=== PATIENT | male | born 1935 | race Caucasian/White ===

== ENCOUNTER 2023-07-20 13:13 | Emergency (ER) | payer MEDICARE, SELFPAY ==
--- NOTE | 2023-07-20 13:26 | ED.ABDPAIN ---
HPI - Abdominal Pain General Chief Complaint: Nausea/Vomiting/Diarrhea Stated Complaint: VOMITING S/P BOWEL BLOCKAGE Source: patient and RN notes reviewed Mode of arrival: ambulatory Limitations: no limitations History of Present Illness HPI narrative: 88 y/o male with hx DM and CAD presented for c/o worsening of chronic nausea and vomiting over the past few weeks. Also reports worsening abdominal pain prior to vomiting. Endorses the abdominal pain last night was 8/10, which improved after vomiting. States he vomits undigested food for many years. 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 reports 3lb weight loss in 10 days. LBM today, normal per pt. Denies hematochezia, melena or hematemesis. Currently without abdominal pain and no emesis today. Reports today's Blood glucose was 115. Pt resides in [place] and spends 6 months in [place]. Pt has a pcp in [place] but no doctors here. Does not have a GI specialist. Abdominal hx includes cholecystectomy. Related Data Home Medications Medication Instructions Recorded Confirmed Novolog PenFill U-100 Insulin 07/20/23 aspirin 81 mg chewable tablet 81 mg PO DAILY 07/20/23 07/20/23 calcium carb-vitamin D3 ER 600 mg 600 tablet PO DAILY 07/20/23 07/20/23 (1,500 mg)-500 unit tablet,ER 24 hr clopidogrel 75 mg tablet 75 mg PO DAILY 07/20/23 07/20/23 empagliflozin 25 mg tablet 12.5 mg PO DAILY 07/20/23 07/20/23 escitalopram oxalate 10 mg tablet 10 mg PO DAILY 07/20/23 07/20/23 insulin glargine 100 unit/mL 50 unit subcut QPM 07/20/23 07/20/23 subcutaneous cartridge melatonin 10 mg tablet 10 mg PO HS PRN Sleep 07/20/23 07/20/23 metoprolol tartrate 50 mg tablet 50 mg PO BID 07/20/23 07/20/23 multivitamin with minerals-folic 1 tablet PO DAILY 07/20/23 07/20/23 acid 80 mcg chewable tablet (Centrum Adult 50 Plus) pantoprazole 40 mg tablet,delayed 40 mg PO QAM 07/20/23 07/20/23 release simvastatin 5 mg tablet 5 mg PO DAILY 07/20/23 07/20/23 tamsulosin 0.4 mg capsule 0.4 mg PO DAILY 07/20/23 07/20/23 Allergies Allergy/AdvReac Type Severity Reaction Status Date / Time No Known Allergies Allergy Verified 07/20/23 13:34 Review of Systems Review of Systems: CONSTITUTIONAL: Denies body aches, fever, chills CARDIOVASCULAR: Denies chest pain, palpitations, or edema. RESPIRATORY: Denies cough or dyspnea. GASTROINTESTINAL: Endorses intermittent abdominal pain, nausea, vomiting, Denies diarrhea, hematochezia, melena, hematemesis GENITOURINARY: Denies dysuria, hematuria, or CVA tenderness. SKIN: Denies rash, itching, or wounds. MUSCULOSKELETAL: Denies back pain, joint pain, or myalgia. NEUROLOGIC: Denies headache, numbness, tingling, or weakness. All systems reviewed & are unremarkable except as noted in HPI and below PMFSH Past Medical History Medical History (Updated 07/20/23 @ 14:00 by Bety Smith APRN) CAD (coronary artery disease) Diabetes HTN (hypertension) Surgical History Surgical History (Updated 07/20/23 @ 13:55 by Bety Smith APRN) History of cholecystectomy Comments At time of signature, I have reviewed and agree with nursing past medical, surgical, social and family history unless otherwise noted. Please see nursing chart for further information. There is no relevant family history pertinent to the presenting complaint Exam Narrative: GENERAL: Well-appearing, and in no acute distress. ENT: Mucous membranes pink and moist. CHEST: No respiratory distress. Clear to auscultation. HEART: Regular rate and rhythm. No murmur appreciated. Normal peripheral pulses. ABDOMEN: Currently denies nausea or abdominal pain; abd soft, nondistended, normal active bowel sounds. Nontender abdomen; No guarding, rebound tenderness, asymmetry EXTREMITIES: Normal range of motion. No edema. SKIN: Warm, dry, no rash. Capillary refill normal. Normal skin turgor. ELMA
[2023-07-20 13:29] VITALS: BP 119/92; PULSE 61; RESP 16; TEMP 36.8; O2SAT 97
== END 2023-07-20 14:22 | disposition short-term general hospital (02) ==
PROVIDERS: Emergency Provider Nurse Practitioner Family
DX: R11.10 Vomiting, unspecified (principal); I25.10 Atherosclerotic heart disease of native coronary artery without angina pectoris; Z79.4 Long term (current) use of insulin; E11.9 Type 2 diabetes mellitus without complications; I10 Essential (primary) hypertension; Z79.82 Long term (current) use of aspirin
CPT/HCPCS: 99212; G0463

== ENCOUNTER 2023-07-20 14:21 | Inpatient (IN) | payer MEDICARE, SELFPAY ==
[2023-07-20] VITALS (7 sets, daily range): BP systolic 104–136; BP diastolic 52–68; PULSE 59–63; RESP 16–18; TEMP 36.3–36.4; O2SAT 97–99; BMI 24.7
--- NOTE | ~2023-07-20 | CT_ITS ---
EXAMINATION: CT abdomen pelvis w con DATE: 07/20/2023 17:07 INDICATION: Vomiting. History of small bowel obstruction. TECHNIQUE: Computed tomography (CT) of the abdomen and pelvis was performed with 100 cc Omnipaque 350 intravenous contrast. The dose-length product was 784.46 mGy-cm. Automated exposure control and iter ative reconstruction technique were employed. COMPARISON: None. FINDINGS: There is small bowel obstruction with transition in the right mid abdomen, axial image 102- 109. Status post cholecystectomy. Dependent atelectasis. There is calcified granuloma in the right lo wer lobe. No pneumothorax. Heart size normal. Status post cholecystectomy. The liver, spleen, pancrea s, adrenal glands and kidneys are unremarkable. No free air or free fluid. No abnormal pelvic masses or fluid collections. There is fluid throughout the nondilated small bowel. There are mildly prominen t mesenteric lymph nodes, likely reactive. Severe lumbar spondylosis with scoliosis. IMPRESSION: 1. Small bowel obstruction with transition right mid abdomen, most likely due to adhesions. Reviewed, dictated and finalized at location A. IMPRESSION: 1. Small bowel obstruction with transition right mid abdomen, most likely due t o adhesions.
[2023-07-20 15:02] LABS: Basophils Percent Auto 0.4 % (0.2-1.2); Eosinophils Percent Auto 0.5 % (0-4.4); Hemoglobin 14.3 g/dL (14.0-18.0); Immature Granulocyte Absolute 0.01 K/mm3 (0.00-0.031); Immature Granulocyte Percent A 0.1 % (0-0.5); Lymphocytes Absolute Auto 1.86 K/mm3 (0.9-3.2); Lymphocytes Percent Auto 22.5 % (18.3-44.2); Mean Corpuscular HGB Conc 31.8 g/dl (32-36); Mean Corpuscular Hemoglobin 27.9 pg (26-34); Mean Corpuscular Volume 87.9 fl (80-100); Mean Platelet Volume 9.9 fl (7.4-10.4); Monocytes Absolute Auto 0.6 K/mm3 (0.1-0.6); Monocytes Percent Auto 7.5 % (2.6-8.5); Neutrophils Absolute Auto 5.7 K/mm3 (1.3-6.7); Platelet Count Result 220 k/mm3 (150-375); Red Blood Count 5.12 M/mm3 (4.6-6.20); Red Cell Distribution Width 14.2 % (11.5-14.5); White Blood Count 8.3 K/mm3 (4.5-10.0)
[2023-07-20 15:13] LABS: Alanine Aminotransferase 20 U/L (6-50); Albumin Level 4.3 g/dL (3.5-5.1); Alkaline Phosphatase 104 U/L (38-126); Anion Gap 11 mmol/L (4-12); Aspartate Amino Transferase 22 U/L (17-59); Bilirubin,Total 0.4 mg/dL (0.2-1.3); Blood Urea Nitrogen 16 mg/dL (9-20); Calcium 8.6 mg/dL (8.4-10.2); Carbon Dioxide 21 mmol/L (22-30); Chloride 105 mmol/L (98-107); Estimated CRCL calculation 52 ml/min; Estimated Glomerular Filt Rate > 60; Glucose 144 mg/dL (65-110); Lipase 53 U/L (23-300); Potassium 4.2 mmol/L (3.4-5.0); Sodium 137 mmol/L (137-145)
[2023-07-20 16:43] LABS: Appearance Urine Clear (Clear); Bilirubin Urine Negative (Negative); Blood Urine Negative (Negative); Color Urine Yellow (Yellow); Glucose Urine UA 3+ mg/dL (Negative); Ketones Urine Trace mg/dL (Negative); Leukocyte Esterase Ur Negative LEU/UL (Negative); Nitrate Urine Negative (Negative); Protein Urine Negative (Negative); Specific Grav Ur 1.027 (1.001-1.035); Urobilinogen Urine 0.2 mg/dL (<2.0)
[2023-07-20 16:49] LABS: Add Urine Microscopic? NO
--- NOTE | 2023-07-20 17:05 | ED.GENADULT ---
HPI - General Adult General Chief complaint: Nausea/Vomiting/Diarrhea Stated complaint: n/v Time Seen by Provider: 07/20/23 16:26 History of Present Illness HPI narrative: Patient is an 88-year-old male who presents the ER with nausea and vomiting as well as diarrhea. Ongoing for the last week. Reports he has history of a small-bowel obstruction was told to come and make sure there are no additional issues. He has passed gas and had a bowel movement today. He was able to eat some food earlier this morning and did not vomit. Has no fevers or chills. He has had no syncope. He tends to get the majority of his care in [place] when he is living there during the winter. Related Data Home Medications Medication Instructions Recorded Confirmed Novolog PenFill U-100 Insulin 07/20/23 aspirin 81 mg chewable tablet 81 mg PO DAILY 07/20/23 07/20/23 calcium carb-vitamin D3 ER 600 mg 600 tablet PO DAILY 07/20/23 07/20/23 (1,500 mg)-500 unit tablet,ER 24 hr clopidogrel 75 mg tablet 75 mg PO DAILY 07/20/23 07/20/23 empagliflozin 25 mg tablet 12.5 mg PO DAILY 07/20/23 07/20/23 escitalopram oxalate 10 mg tablet 10 mg PO DAILY 07/20/23 07/20/23 insulin glargine 100 unit/mL 50 unit subcut QPM 07/20/23 07/20/23 subcutaneous cartridge melatonin 10 mg tablet 10 mg PO HS PRN Sleep 07/20/23 07/20/23 metoprolol tartrate 50 mg tablet 50 mg PO BID 07/20/23 07/20/23 multivitamin with minerals-folic 1 tablet PO DAILY 07/20/23 07/20/23 acid 80 mcg chewable tablet (Centrum Adult 50 Plus) pantoprazole 40 mg tablet,delayed 40 mg PO QAM 07/20/23 07/20/23 release simvastatin 5 mg tablet 5 mg PO DAILY 07/20/23 07/20/23 tamsulosin 0.4 mg capsule 0.4 mg PO DAILY 07/20/23 07/20/23 Allergies Allergy/AdvReac Type Severity Reaction Status Date / Time No Known Allergies Allergy Verified 07/20/23 16:39 Review of Systems Review of Systems: All systems reviewed & are unremarkable except as noted in HPI and below Constitutional: Constitutional: Reports no additional constitutional complaints Cardiovascular: Cardiovascular: Reports no additional cardiovascular complaints Respiratory: Respiratory: Reports no additional respiratory complaints Gastrointestinal: Gastrointestinal: Denies bloating, Denies constipation, Reports diarrhea, Reports nausea and Reports vomiting Genitourinary: Genitourinary: Reports no additional male genitourinary complaints Musculoskeletal: Musculoskeletal: Reports no additional musculoskeletal complaints PMFSH Past Medical History Medical History (Updated 07/20/23 @ 21:45 by Zeus Thorpe MD) CAD (coronary artery disease) Diabetes History of small bowel obstruction HTN (hypertension) Surgical History Surgical History (Updated 07/20/23 @ 13:55 by Bety Smith, DATA PROCESSING EQUIPMENT REPAIRER) History of cholecystectomy Exam Narrative: GENERAL: Well-appearing, well-nourished, and in no acute distress. HEAD: Normocephalic, atraumatic. ENT: Mucous membranes moist. NECK: Supple. CHEST: Clear to auscultation. No respiratory distress. HEART: Regular rate and rhythm. Normal peripheral pulses. ABDOMEN: Soft, nontender, nondistended. EXTREMITIES: Normal range of motion. No edema. SKIN: Warm, dry, no rash. NEURO: Alert and oriented x3. PSYCH: Normal mood and affect. Course Course Emergency Course: Admit to hospitalist service. General surgery consulted. Some mild distended so NG tube not placed. NPO with IV fluids. Vital Signs Vital signs: Vital Signs Temperature 97.5 F L 07/20/23 14:45 Pulse Rate 63 07/20/23 14:45 Respiratory Rate 16 07/20/23 14:45 Blood Pressure 123/68 07/20/23 14:45 Pulse Oximetry 97 07/20/23 14:45 Temperature 97.5 F L 07/20/23 14:45 Pulse Rate 59 L 07/20/23 19:00 Respiratory Rate 16 07/20/23 20:31 Blood Pressure 115/52 L 07/20/23 20:31 Pulse Oximetry 97 07/20/23 20:31 Medical Decision Making Vital Signs Vital Signs: Vital Sign
[2023-07-20] MEDS: SODIUM CHLORIDE 0.9% IV 1,000 ML 999 ML IV CONT (18:00)
[2023-07-20] MEDS: ONDANSETRON INJ 4 MG/2 ML VIAL IV PUSH (18:00)
[2023-07-20] MEDS: SODIUM CHLORIDE 0.9% IV 1,000 ML 125 ML IV CONT (21:03)
--- NOTE | 2023-07-20 21:12 | PM.IMHP ---
H&P: HPI History of Present Illness Date/Time: 07/20/23 21:12 Chief Complaint: nausea/vomiting Narrative: This is an 88-year-old male with past medical history significant for recurrent small-bowel obstruction. Patient presents to the emergency room due to 1 week of nausea vomiting and abdominal pain, no hematemesis no hematochezia no melena, no coffee-ground emesis. Poor per orally intake. Preliminary workup was significant for CT of abdomen and pelvis with small-bowel obstruction. EXAMINATION: CT abdomen pelvis w con DATE: 07/20/2023 17:07 INDICATION: Vomiting. History of small bowel obstruction. TECHNIQUE: Computed tomography (CT) of the abdomen and pelvis was performed with 100 cc Omnipaque 350 intravenous contrast. The dose-length product was 784.46 mGy-cm. Automated exposure control and iterative reconstruction technique were employed. COMPARISON: None. FINDINGS: There is small bowel obstruction with transition in the right mid abdomen, axial image [id number]. Status post cholecystectomy. Dependent atelectasis. There is calcified granuloma in the right lower lobe. No pneumothorax. Heart size normal. Status post cholecystectomy. The liver, spleen, pancreas, adrenal glands and kidneys are unremarkable. No free air or free fluid. No abnormal pelvic masses or fluid collections. There is fluid throughout the nondilated small bowel. There are mildly prominent mesenteric lymph nodes, likely reactive. Severe lumbar spondylosis with scoliosis. IMPRESSION: 1. Small bowel obstruction with transition right mid abdomen, most likely due to adhesions. Review of Systems Review of Systems: ABDOMINAL PAIN Constitutional: Constitutional: Denies chills, Denies fever(s), Denies malaise and Denies weakness Eyes: Eyes: Denies change in vision ENT: Denies dysphagia and Denies odynophagia Cardiovascular: Cardiovascular: Denies chest pain, Denies radiating jaw, neck or arm pain and Denies palpitations Respiratory: Respiratory: Denies cough and Denies dyspnea Gastrointestinal: Gastrointestinal: Reports abdominal pain, Reports GI cramping, Reports nausea and Reports vomiting Genitourinary: Genitourinary: Denies dysuria Musculoskeletal: Musculoskeletal: Denies arthralgias Integumentary/Breasts: Skin/Breast: Denies rash Neurologic: Denies focal weakness and Denies Sensory deficit (Neuro) Psychiatric: Psychiatric: Reports no additional psychiatric complaints and Reports as per HPI Endocrine: Endocrine: Denies cold intolerance, Denies fatigue, Denies flushing, Denies heat intolerance, Denies polyphagia, Denies polydipsia, Denies polyuria and Denies palpitations Hematologic/Lymphatic: Hematologic/Lymphatic: Reports no additional hematologic/lymphatic complaints and Reports as per HPI Allergic/Immunologic: Allergic/Immunologic: Reports no additional allergic/immunologic complaints and Reports as per HPI PMFSH Past Medical History Medical History (Updated 07/21/23 @ 03:19 by Stacie Dixon MD) CAD (coronary artery disease) Diabetes History of small bowel obstruction HTN (hypertension) Surgical History Surgical History (Updated 07/20/23 @ 13:55 by Bety Smith APRN) History of cholecystectomy Social History Social History Smoking status: Never smoker Alcohol intake: never Substance use: never Substance use type: does not use Do You Feel Safe in your Home?: Yes Lack of Transportation: No Lack of Food: Never True Current Housing: I Have Housing Concerned About Future Housing: No Difficulty Paying Gas/Electric Bills: No Difficulty Paying for Meds: No Currently Unemployed: No Education: High School Diploma/GED Difficulty w/ Childcare or Family Care: No Spiritual care concerns: No Meds Home Medications and Allergies Home Medications Medication Instructions Recorded Confirmed Type aspirin 81 mg chewable tablet 81 mg P
[2023-07-20 22:22] LABS: Glucose Point of Care 115 mg/dl (65-105)
--- NOTE | 2023-07-20 22:40 | ADMGEN ---
This patient, Dilip Aldana, was admitted to 3 [facility] Surg Room 310-01. Patient/family oriented to hospital policies and general routines including ID bracelet, bed and alarms, visiting hours, pain management, procedures, bathroom and other care routines, personal items, smoking policy, room service/diet, and visiting hours. Information on how to activate the Rapid Response Team has been discussed. Patient/Family are encouraged to report perceived risks to care and to ask questions if they do not understand what they are told or what they should do.
[2023-07-21 03:25] VITALS: PULSE 58; RESP 15; O2SAT 99
[2023-07-21] MEDS: SODIUM CHLORIDE 0.9% IV 1,000 ML 125 ML IV CONT ×2 (04:57→13:00)
[2023-07-21 06:05] VITALS: BP 151/61; PULSE 59; RESP 18; TEMP 36; O2SAT 98
[2023-07-21 08:11] VITALS: O2SAT 94
--- NOTE | 2023-07-21 08:58 | PM.IMPN ---
Progress Note: A&P Assessment and Plan (1) Small bowel obstruction: Code(s): K56.609 - Unspecified intestinal obstruction, unspecified as to partial versus complete obstruction Status: Acute Assessment and Plan: placed in observation in regular medical floor NPO IV fluids general surgery consult (2) Nausea and vomiting: Code(s): R11.2 - Nausea with vomiting, unspecified Status: Acute Assessment and Plan: likely secondary to 1. Supportive care (3) CAD (coronary artery disease): Code(s): I25.10 - Atherosclerotic heart disease of [place] coronary artery without angina pectoris Status: Acute Assessment and Plan: stable. aspirin Plavix on hold for now (4) Diabetes: Code(s): E11.9 - Type 2 diabetes mellitus without complications Status: Acute Assessment and Plan: resume insulin as needed Q6 hour Accu-Cheks while NPO Time Spent With Patient Time with patient: 25 - 35 minutes Subjective Date/time seen: 07/21/23 08:58 Interval history: This is an 88-year-old male patient with complaints abdominal pain and nausea. 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 Patient had been complaining of abdominal pain and nausea with vomiting the got worse yesterday. Came to emergency department CT scan showed small bowel obstruction likely due to adhesion. Patient reports he had a bowel movement this morning and that he is feeling hungry. He reports he still has pain but it is getting better. Surgery was consulted to see the patient. He does not have an NG-tube. Review of Systems Review of Systems: All systems reviewed & are unremarkable except as noted in HPI and below Exam Narrative: sitting in bed Const: General: comfortable, no acute distress, well developed, alert, awake and average body habitus Nutritional Appearance: average body habitus Orientation/consciousness: patient oriented x3 Other: well-appearing HENMT: Head: normal to inspection, normocephalic and atraumatic Ears: hearing grossly normal bilaterally Face/Nose/Sinus: normal facial exam Face and sinus: normal facial exam Eyes: General: appearance normal, both eyes and all related structures Pupils: Equal, round and reactive pupils present EOM: EOMs intact bilaterally Neck: Neck: full ROM, no lymphadenopathy and no JVD Thyroid: thyroid normal Lymphatic: no lymphadenopathy noted Resp: Effort & Inspection: normal respiratory effort and able to speak in complete sentences Auscultation: clear to auscultation bilaterally Cardio: Jugular venous distension: no JVD Rate: regular rate Rhythm: regular rhythm Heart sounds: S1 normal heart sound present and S2 normal heart sound present GI: Inspection: normal to inspection : General: Yes deferred Skin: Rashes: no rashes Wounds: no wounds Neuro: General: patient oriented x3, CN's II-XI intact bilaterally and Unable to assess gait Cranial nerves: Yes CN's II-XII intact bilaterally and Yes Equal, round and reactive pupils present Cognition (Neuro): normal cognition Speech: normal speech Gait exam (Neuro): Normal gait present and Unable to assess gait Motor exam (neuro): 5/5 motor strength present throughout Sensory Exam: No Sensory deficit (Neuro) Extrem: General: normal to inspection, full ROM, no joint enlargement and no pedal edema Objective Data Vital Signs Vital Signs: Vital Signs - 24 hr 07/20/23 14:45 07/20/23 18:01 07/20/23 18:30 Temperature 36.4 C L Pulse Rate 63 59 L 60 Respiratory Rate 16 16 16 Blood Pressure 123/68 115/52 L 104/52 L Pulse Oximetry 97 97 97 Oxygen Delivery 07/20/23 19:00 07/20/23 20:31 07/20/23 20:45 Temperature 36.3 C L Pulse Rate 59 L 62 Respiratory Rate 16 16 18 Blood Pressure 116/54 L 115/52 L 136/55 L Pulse Oximetry 98 97 99 Oxygen Delivery 07/20/23 21:00 07/20/23 23:15 07/20/23 23:15 Temperature Pulse Rate 62
[2023-07-21 11:38] LABS: Glucose Point of Care 83 mg/dl (65-105)
[2023-07-21 14:00] VITALS: BP 127/53; PULSE 62; RESP 18; TEMP 36.3; O2SAT 98
[2023-07-21 16:50] LABS: Glucose Point of Care 68 mg/dl (65-105)
--- NOTE | 2023-07-21 17:18 | PM.CNGS ---
Assessment and Plan Assessment and plan (1) Small bowel obstruction: Code(s): K56.609 - Unspecified intestinal obstruction, unspecified as to partial versus complete obstruction Status: Acute Assessment and Plan: Exam benign at this time, patient having bowel function, will start clears and advance as tolerated, encourage out of bed History of Present Illness Consult details Consult date: 07/21/23 Reason for consult: abdominal pain Requesting physician: Zeus Thorpe MD Narrative: The patient is an 88-year-old male presenting to the emergency department complaining of crampy abdominal pain, nausea, poor appetite. The patient has a history of recurrent small bowel obstruction and reports this is very similar to his normal symptoms. The patient reports he is passing some flatus, however had not had a normal bowel movement for a few days. Workup in the emergency department, including imaging, is significant for recurrent small-bowel obstruction. Review of Systems Review of Systems: All systems reviewed & are unremarkable except as noted in HPI and below PMFSH Past Medical History Medical History CAD (coronary artery disease) Diabetes History of small bowel obstruction HTN (hypertension) Surgical History Surgical History History of cholecystectomy Social History Social History Smoking status: Never smoker Alcohol intake: never Substance use: never Substance use type: does not use Do You Feel Safe in your Home?: Yes Lack of Transportation: No Lack of Food: Never True Current Housing: I Have Housing Concerned About Future Housing: No Difficulty Paying Gas/Electric Bills: No Difficulty Paying for Meds: No Currently Unemployed: No Education: High School Diploma/GED Difficulty w/ Childcare or Family Care: No Spiritual care concerns: No Meds Home Medications and Allergies Home Medications Medication Instructions Recorded Confirmed Type aspirin 81 mg chewable tablet 81 mg PO DAILY 07/20/23 07/20/23 History calcium carb-vitamin D3 ER 600 mg 1 tablet PO QPM 07/20/23 07/20/23 History (1,500 mg)-500 unit tablet,ER 24 hr calcium carb-vitamin D3 ER 600 mg 1,200 tablet PO DAILY 07/20/23 07/20/23 History (1,500 mg)-500 unit tablet,ER 24 hr clopidogrel 75 mg tablet 75 mg PO DAILY 07/20/23 07/20/23 History empagliflozin 25 mg tablet 12.5 mg PO DAILY 07/20/23 07/20/23 History escitalopram oxalate 10 mg tablet 10 mg PO DAILY 07/20/23 07/20/23 History insulin glargine 100 unit/mL 50 unit subcut QPM 07/20/23 07/20/23 History subcutaneous cartridge melatonin 10 mg tablet 10 mg PO HS PRN Sleep 07/20/23 07/20/23 History metoprolol tartrate 50 mg tablet 50 mg PO BID 07/20/23 07/20/23 History multivitamin with minerals-folic 1 tablet PO DAILY 07/20/23 07/20/23 History acid 80 mcg chewable tablet (Centrum Adult 50 Plus) pantoprazole 40 mg tablet,delayed 40 mg PO QAM 07/20/23 07/20/23 History release simvastatin 5 mg tablet 5 mg PO DAILY 07/20/23 07/20/23 History tamsulosin 0.4 mg capsule 0.4 mg PO DAILY 07/20/23 07/20/23 History Allergies Allergy/AdvReac Type Severity Reaction Status Date / Time No Known Allergies Allergy Verified 07/20/23 16:39 Vital Signs Vital Signs - 24 hr 07/20/23 18:01 07/20/23 18:30 07/20/23 19:00 Temperature Pulse Rate 59 L 60 59 L Respiratory Rate 16 16 16 Blood Pressure 115/52 L 104/52 L 116/54 L Pulse Oximetry 97 97 98 Oxygen Delivery 07/20/23 20:31 07/20/23 20:45 07/20/23 21:00 Temperature 36.3 C L Pulse Rate 62 Respiratory Rate 16 18 Blood Pressure 115/52 L 136/55 L Pulse Oximetry 97 99 Oxygen Delivery Room Air 07/20/23 23:15 07/20/23 23:15 07/21/23 03:25 Temperature Pulse Rate 62 58 L Respiratory Rate 18 15 Blood Pressur
[2023-07-21 17:38] LABS: Glucose Point of Care 93 mg/dl (65-105)
[2023-07-21 20:36] LABS: Glucose Point of Care 157 mg/dl (65-105)
[2023-07-21 20:47] VITALS: BP 133/52; PULSE 65; RESP 18; TEMP 36.4; O2SAT 97
[2023-07-22] MEDS: SODIUM CHLORIDE 0.9% IV 1,000 ML 125 ML IV CONT ×2 (02:12→11:15)
[2023-07-22 05:00] LABS: Glucose Point of Care 88 mg/dl (65-105)
[2023-07-22 05:24] VITALS: BP 119/54; PULSE 60; RESP 18; TEMP 36.7; O2SAT 99
[2023-07-22 06:29] LABS: Basophils Percent Auto 0.2 % (0.2-1.2); Eosinophils Absolute Auto 0.1 K/mm3 (0-0.3); Eosinophils Percent Auto 1.6 % (0-4.4); Hematocrit 42.7 % (42.0-52.0); Immature Granulocyte Absolute 0.01 K/mm3 (0.00-0.031); Immature Granulocyte Percent A 0.2 % (0-0.5); Lymphocytes Absolute Auto 1.65 K/mm3 (0.9-3.2); Lymphocytes Percent Auto 38.7 % (18.3-44.2); Mean Corpuscular HGB Conc 30.4 g/dl (32-36); Mean Corpuscular Hemoglobin 27.5 pg (26-34); Mean Corpuscular Volume 90.3 fl (80-100); Monocytes Absolute Auto 0.4 K/mm3 (0.1-0.6); Monocytes Percent Auto 9.4 % (2.6-8.5); Neutrophils Absolute Auto 2.1 K/mm3 (1.3-6.7); Neutrophils Percent Auto 49.9 % (45.5-73.1); Platelet Count Result 190 k/mm3 (150-375); Red Blood Count 4.73 M/mm3 (4.6-6.20); Red Cell Distribution Width 14.2 % (11.5-14.5); White Blood Count 4.3 K/mm3 (4.5-10.0)
[2023-07-22 06:52] LABS: Alanine Aminotransferase 16 U/L (6-50); Albumin Level 3.4 g/dL (3.5-5.1); Alkaline Phosphatase 96 U/L (38-126); Anion Gap 8 mmol/L (4-12); Aspartate Amino Transferase 19 U/L (17-59); Bilirubin,Total 0.4 mg/dL (0.2-1.3); Blood Urea Nitrogen 8 mg/dL (9-20); Calcium 8.4 mg/dL (8.4-10.2); Carbon Dioxide 19 mmol/L (22-30); Chloride 112 mmol/L (98-107); Estimated CRCL calculation 52 ml/min; Estimated Glomerular Filt Rate > 60; Glucose 99 mg/dL (65-110); Magnesium 1.9 mg/dL (1.6-2.3); Potassium 3.7 mmol/L (3.4-5.0); Sodium 139 mmol/L (137-145)
[2023-07-22] MEDS: CLOPIDOGREL BISULFATE 75 MG TABLET PO (08:03)
[2023-07-22] MEDS: ESCITALOPRAM OXALATE 10 MG TABLET PO (08:03)
[2023-07-22] MEDS: CALCIUM/VITAMIN D 500 MG/5 MCG (200 I.U.) TABLET 1000 MG PO (08:03)
[2023-07-22] MEDS: PANTOPRAZOLE 40 MG TABLET PO (08:03)
[2023-07-22] MEDS: ASPIRIN 81 MG CHEWABLE TABLET PO (08:03)
[2023-07-22] MEDS: SIMVASTATIN 5 MG TABLET PO (08:03)
[2023-07-22] MEDS: TAMSULOSIN HCL 0.4 MG CAPSULE PO (08:03)
[2023-07-22 08:28] LABS: Glucose Point of Care 106 mg/dl (65-105)
[2023-07-22 09:07] VITALS: PULSE 61; O2SAT 93
--- NOTE | 2023-07-22 10:38 | PM.IMPN ---
Subjective Date/time seen: 07/22/23 10:38 Objective Data Vital Signs Vital Signs: Vital Signs - 24 hr 07/21/23 14:00 07/21/23 19:48 07/21/23 20:47 Temperature 36.3 C L 36.4 C Pulse Rate 62 65 Respiratory Rate 18 18 Blood Pressure 127/53 L 133/52 L Pulse Oximetry 98 97 Oxygen Delivery Room Air 07/22/23 05:24 07/22/23 08:00 07/22/23 09:07 Temperature 36.7 C Pulse Rate 60 61 Respiratory Rate 18 Blood Pressure 119/54 L Pulse Oximetry 99 93 Oxygen Delivery Room Air Room Air Intake/Output Intake/Output: Intake & Output 07/19/23 07/20/23 07/21/23 07/22/23 23:59 23:59 23:59 23:59 Intake Total 1000 3587.5 1700 Output Total 1415 725 Balance 1000 2172.5 975 Meds/Results Medications: Active Medications Generic Name Dose Route Start Last Admin Trade Name Freq PRN Reason Stop Dose Admin Aspirin 81 mg 07/22/23 09:00 07/22/23 08:03 Aspirin 81 Mg Chewable Tablet PO 81 mg DAILY MONISHA Administration Calcium Carbonate 1,000 mg 07/22/23 09:00 07/22/23 08:03 Calcium/Vitamin D 500 Mg/5 Mcg (200 I.U.) Tablet PO 1,000 mg QAM MONISHA Administration Calcium Carbonate 500 mg 07/22/23 18:00 Calcium/Vitamin D 500 Mg/5 Mcg (200 I.U.) Tablet PO QPM MONISHA Clopidogrel Bisulfate 75 mg 07/22/23 09:00 07/22/23 08:03 Clopidogrel Bisulfate 75 Mg Tablet PO 75 mg DAILY MONISHA Administration Dextrose 12.5 gm 07/21/23 19:50 Dextrose 50% 25 Gm/50 Ml Syringe IV PUSH PRN PRN Hypoglycemia Protocol Escitalopram Oxalate 10 mg 07/22/23 09:00 07/22/23 08:03 Escitalopram Oxalate 10 Mg Tablet PO 10 mg DAILY MONISHA Administration Glucagon 1 mg 07/21/23 19:50 Glucagon For Inj 1 Mg Vial IM PRN PRN Hypoglycemia Protocol Glucose 15 gm 07/21/23 19:50 Glucose Oral Gel 15 Gm Of Glucse In 37.5 Gm Tube PO PRN PRN Hypoglycemia Protocol Sodium Chloride 1,000 mls @ 125 mls/hr 07/20/23 18:30 07/22/23 10:23 Normal Saline Iv IV CONT Infused .Q8H MONISHA Infusion Dextrose 1,000 mls @ 100 mls/hr 07/21/23 19:50 Dextrose 5% 1,000 Ml IVPB PRN PRN Hypoglycemia Protocol Insulin Aspart 2 - 5 units 07/22/23 08:00 07/22/23 09:18 Insulin Aspart (*Bkc) 100 Units/Ml SUB-Q Not Given TIDWM MONISHA Protocol Insulin Aspart 1 - 2 units 07/21/23 21:00 07/21/23 20:40 Insulin Aspart (*Bkc) 100 Units/Ml SUB-Q Not Given HS MONISHA Protocol Melatonin 10 mg 07/21/23 19:49 Melatonin 5 Mg Tablet PO HS PRN Sleep Morphine Sulfate 2 mg 07/20/23 18:29 Morphine Sulfate (*Crx) 2 Mg/Ml Inj IV PUSH Q2H PRN Pain Rated 7-10 Multivitamins/Minerals 1 tablet 07/22/23 09:00 Multivits W-Fe,Min Chewable Tablet PO DAILY MONISHA Ondansetron HCl 4 mg 07/20/23 18:29 Ondansetron Inj 4 Mg/2 Ml Vial IV PUSH Q4H PRN Nausea Pantoprazole Sodium 40 mg 07/22/23 09:00 07/22/23 08:03 Pantoprazole 40 Mg Tablet PO 40 mg QAM MONISHA Administration Simvastatin 5 mg 07/22/23 09:00 07/22/23 08:03 Simvastatin 5 Mg Tablet PO 5 mg DAILY MONISHA Administration Tamsulosin HCl 0.4 mg 07/22/23 09:00 07/22/23 08:03 Tamsulosin Hcl 0.4 Mg Capsule PO 0.4 mg DAILY MONISHA Administration Radiology Results: ITS Impressions Abdomen/Pelvis CT 07/20/23 17:10 IMPRESSION: 1. Small bowel obstruction with transition right mid abdomen, most likely due to adhesions. Labs Labs: Laboratory Results - last 24 hr 07/21/23 07/21/23 07/21/23 11:35 16:48 17:35 WBC RBC Hgb Hct MCV MCH MCHC RDW Plt Count MPV Immature Gran % (Auto) Neut % (Auto) Lymph % (Auto) [place] % (Auto) Eos % (Auto) Baso % (Auto) Lymph # (Auto) [place] # (Auto) Eos # (Auto) Baso # (Auto) Abs Immat Gran (auto) Absolute Neuts (auto) Absolute Nucleated RBC Nucleated RBC % Sodium Potassium Chlorid
--- NOTE | 2023-07-22 11:17 | PM.DS ---
DS: Admitting Diagnosis Discharge Date 07/22/2023 Admitting Diagnosis Small-bowel obstruction, nausea vomiting, CAD, diabetes DS: Discharge Diagnosis Discharge Diagnosis (1) Small bowel obstruction: Code(s): K56.609 - Unspecified intestinal obstruction, unspecified as to partial versus complete obstruction Status: Acute (2) Nausea and vomiting: Code(s): R11.2 - Nausea with vomiting, unspecified Status: Acute (3) CAD (coronary artery disease): Code(s): I25.10 - Atherosclerotic heart disease of [place] coronary artery without angina pectoris Status: Acute (4) Diabetes: Code(s): E11.9 - Type 2 diabetes mellitus without complications Status: Acute DS: Summary Hospital Course Hospital Course: this is an 88-year-old male patient with 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 It originally seemed like patient might need surgery but with bowel rest he regained function following morning. Surgery evaluated patient felt exam was benign bowels were moving passing gas so diet was advanced. Patient tolerated regular diet day of discharge and was very adamant about being discharged as soon as possible. Status at Discharge Cognitive/behavioral status at discharge: awake alert oriented and pleasant Functional status at discharge: independent ambulation Overall status at discharge: patient is back to baseline Time Spent with Patient Time attestation: Total time spent providing and/or coordinating discharge services: 40 minutes Time spent: Greater than 30 minutes Exam Narrative: sitting in bed Const: General: comfortable, no acute distress, well developed, alert, awake and average body habitus Nutritional Appearance: average body habitus Orientation/consciousness: patient oriented x3 Other: well-appearing HENMT: Head: normal to inspection, normocephalic and atraumatic Ears: hearing grossly normal bilaterally Face/Nose/Sinus: normal facial exam Face and sinus: normal facial exam Eyes: General: appearance normal, both eyes and all related structures Pupils: Equal, round and reactive pupils present EOM: EOMs intact bilaterally Neck: Neck: full ROM, no lymphadenopathy and no JVD Thyroid: thyroid normal Lymphatic: no lymphadenopathy noted Resp: Effort & Inspection: normal respiratory effort and able to speak in complete sentences Auscultation: clear to auscultation bilaterally Cardio: Jugular venous distension: no JVD Rate: regular rate Rhythm: regular rhythm Heart sounds: S1 normal heart sound present and S2 normal heart sound present GI: Inspection: normal to inspection GI Palp: Yes Soft to palpation, No Firmness to palpation present (GI), No Tenderness to palpation present (GI), No Guarding due to palpation present (GI) and No Hernia present : General: Yes deferred Skin: Rashes: no rashes Wounds: no wounds Neuro: General: patient oriented x3, CN's II-XI intact bilaterally and Unable to assess gait Cranial nerves: Yes CN's II-XII intact bilaterally and Yes Equal, round and reactive pupils present Cognition (Neuro): normal cognition Speech: normal speech Gait exam (Neuro): Normal gait present and Unable to assess gait Motor exam (neuro): 5/5 motor strength present throughout Sensory Exam: No Sensory deficit (Neuro) Extrem: General: normal to inspection, full ROM, no joint enlargement and no pedal edema DS: Data Data Completed and Pending Completed studies during hospitalization: abdomen/pelvis CT Labs on day of discharge: Labs from last 24 hours 07/22/23 07/22/23 07/22/23 08:10 06:16 04:37 WBC 4.3 L RBC 4.73 Hgb 13.0 L Hct 42.7 MCV 90.3 MCH 27.5 MCHC 30.4 L RDW 14.2 Plt Count 190 MPV 10.0 Immature Gran % (Auto) 0.2 Neut % (Auto) 49.9 Lymph % (Auto) 38.7 [place] % (Auto) 9.4 H Eos % (Auto) 1.6 Baso % (Auto
[2023-07-22 12:12] LABS: Glucose Point of Care 190 mg/dl (65-105)
--- NOTE | 2023-07-22 12:47 | PM.PNGS ---
Progress Note: A&P Assessment and Plan (1) Small bowel obstruction: Code(s): K56.609 - Unspecified intestinal obstruction, unspecified as to partial versus complete obstruction Status: Acute Assessment and Plan: exam benign, +bowel fxn, ADAT, ok to dc home if elvira diet Subjective Subjective Date/Time Seen: 07/22/23 12:47 Interval history: feels better today, +bowel fxn, elvira clears Review of Systems Review of Systems: All systems reviewed & are unremarkable except as noted in HPI and below Exam Const: General: cooperative, comfortable and no acute distress Resp: Auscultation: clear to auscultation bilaterally Cardio: Rate: regular rate Rhythm: regular rhythm GI: Inspection: normal to inspection and non-distended GI Palp: No abdominal tenderness, Yes Soft to palpation and No Tenderness to palpation present (GI) Objective Data Vital Signs Vital Signs: Vital Signs - 24 hr 07/21/23 14:00 07/21/23 19:48 07/21/23 20:47 Temperature 36.3 C L 36.4 C Pulse Rate 62 65 Respiratory Rate 18 18 Blood Pressure 127/53 L 133/52 L Pulse Oximetry 98 97 Oxygen Delivery Room Air 07/22/23 05:24 07/22/23 08:00 07/22/23 09:07 Temperature 36.7 C Pulse Rate 60 61 Respiratory Rate 18 Blood Pressure 119/54 L Pulse Oximetry 99 93 Oxygen Delivery Room Air Room Air Intake/Output Intake/Output: Intake & Output 07/19/23 07/20/23 07/21/23 07/22/23 23:59 23:59 23:59 23:59 Intake Total 1000 3587.5 1700 Output Total 1415 1000 Balance 1000 2172.5 700 Meds/Results Medications: Active Medications Generic Name Dose Route Start Last Admin Trade Name Freq PRN Reason Stop Dose Admin Aspirin 81 mg 07/22/23 09:00 07/22/23 08:03 Aspirin 81 Mg Chewable Tablet PO 81 mg DAILY MONISHA Administration Calcium Carbonate 1,000 mg 07/22/23 09:00 07/22/23 08:03 Calcium/Vitamin D 500 Mg/5 Mcg (200 I.U.) Tablet PO 1,000 mg QAM MONISHA Administration Calcium Carbonate 500 mg 07/22/23 18:00 Calcium/Vitamin D 500 Mg/5 Mcg (200 I.U.) Tablet PO QPM MONISHA Clopidogrel Bisulfate 75 mg 07/22/23 09:00 07/22/23 08:03 Clopidogrel Bisulfate 75 Mg Tablet PO 75 mg DAILY MONISHA Administration Dextrose 12.5 gm 07/21/23 19:50 Dextrose 50% 25 Gm/50 Ml Syringe IV PUSH PRN PRN Hypoglycemia Protocol Escitalopram Oxalate 10 mg 07/22/23 09:00 07/22/23 08:03 Escitalopram Oxalate 10 Mg Tablet PO 10 mg DAILY MONISHA Administration Glucagon 1 mg 07/21/23 19:50 Glucagon For Inj 1 Mg Vial IM PRN PRN Hypoglycemia Protocol Glucose 15 gm 07/21/23 19:50 Glucose Oral Gel 15 Gm Of Glucse In 37.5 Gm Tube PO PRN PRN Hypoglycemia Protocol Sodium Chloride 1,000 mls @ 125 mls/hr 07/20/23 18:30 07/22/23 11:15 Normal Saline Iv IV CONT 125 mls/hr .Q8H MONISHA Administration Dextrose 1,000 mls @ 100 mls/hr 07/21/23 19:50 Dextrose 5% 1,000 Ml IVPB PRN PRN Hypoglycemia Protocol Insulin Aspart 2 - 5 units 07/22/23 08:00 07/22/23 12:24 Insulin Aspart (*Bkc) 100 Units/Ml SUB-Q Not Given TIDWM [facility] Protocol Insulin Aspart 1 - 2 units 07/21/23 21:00 07/21/23 20:40 Insulin Aspart (*Bkc) 100 Units/Ml SUB-Q Not Given HS [facility] Protocol Melatonin 10 mg 07/21/23 19:49 Melatonin 5 Mg Tablet PO HS PRN Sleep Morphine Sulfate 2 mg 07/20/23 18:29 Morphine Sulfate (*Crx) 2 Mg/Ml Inj IV PUSH Q2H PRN Pain Rated 7-10 Multivitamins/Minerals 1 tablet 07/22/23 09:00 07/22/23 12:27 Multivits W-Fe,Min Chewable Tablet PO Not Given DAILY [facility] Ondansetron HCl 4 mg 07/20/23 18:29 Ondansetron Inj 4 Mg/2 Ml Vial IV PUSH Q4H PRN Nausea Pantoprazole Sodium 40 mg 07/22/23 09:00 07/22/23 08:03 Pantoprazole 40 Mg Tablet PO 40 mg QAM [facility] Administration Simvastatin 5 mg 07/22/23 09:00 07/22/23 08:03 Simvastatin 5 Mg Tablet PO
== END 2023-07-22 14:45 | disposition home or self-care (01) | DRG 390 ==
LOC: ANHED 17:39 → ANH3MEDSUR 19:18
PROVIDERS: Nurse Practitioner; Admitting Provider Student in an Organized Health Care Education/Training Program; Emergency Provider Emergency Medicine; Visit Provider Internal Medicine
DX: K56.50 Intestinal adhesions [bands], unspecified as to partial versus complete obstruction (principal); I25.10 Atherosclerotic heart disease of native coronary artery without angina pectoris; E11.9 Type 2 diabetes mellitus without complications; Z90.49 Acquired absence of other specified parts of digestive tract
CPT/HCPCS: 36415; 74177; 80053; 81003; 82948; 83690; 83735; 85025; 96361; 96374; 99285; A9270; G0378; J2405; J7030; Q9967

== ENCOUNTER 2024-10-30 08:26 | Inpatient (IN) | payer MEDICARE, SELFPAY ==
[2024-10-30] VITALS (20 sets, daily range): BP systolic 98–119; BP diastolic 46–61; PULSE 57–77; RESP 17–23; TEMP 36.4–36.9; O2SAT 95–100; BMI 23.1
--- NOTE | ~2024-10-30 | XR_ITS ---
EXAM/PROCEDURE: XR chest 2V - 10/30/2024 9:50 CDT HISTORY: 89 years old Male with weakness TECHNIQUE: Two view(s) of the chest. COMPARISON: None available. FINDINGS: LUNGS/ PLEURA: Mild vascular congestion with increased interstitial markings. HEART/ MEDIASTINUM: Heart appears normal in size. Intact dual lead AICD. BONES: No acute osseous abnormality. OTHER: Visualized upper abdomen is unremarkable. IMPRESSION: Mild vascular congestion. Increased interstitial markings. Superimposed infection cannot be excluded. Clinical correlation is recommended. Short-term follow-up chest radiograph is recommended after appr opriate clinical therapy. Reviewed, dictated and finalized at location A. IMPRESSION: Mild vascular congestion. Increased interstitial markings. Superimposed infecti on cannot be excluded. Clinical correlation is recommended. Short-term follow-u p chest radiograph is recommended after appropriate clinical therapy.
--- NOTE | ~2024-10-30 | US_ITS ---
EXAM: ABDOMEN ULTRASOUND HISTORY: Pancytopenia, rule out hepatosplenomegaly (Leukopenia). COMPARISON: Reference is made to a CT examination of the abdomen and pelvis dated 07/20/2023 FINDINGS: LIVER: The liver is increased in echogenicity and size measuring 22cm in longitudinal dimension, unch anged from 2023 examination. The contour of the liver surface is smooth. What is designated as the portal vein on static imaging is patent and demonstrates phasic hepatopedal flow. GALLBLADDER: Surgically absent. BILE DUCTS: Common bile duct measures 6.8mm. PANCREAS: Limited evaluation of the pancreas secondary to overlying bowel gas SPLEEN: The spleen is unremarkable in echogenicity and size measuring 12cm in longitudinal dimension. RIGHT KIDNEY: 11.8 cm. In length. No hydronephrosis or bulky renal calculi. LEFT KIDNEY: 10.2cm in length. No hydronephrosis or renal calculi. VASCULATURE : The visualized portion of the abdominal aorta is nonaneurysmal. The IVC is patent. IMPRESSION: Evaluation of the pancreas is limited by overlying bowel gas. Redemonstration of hepatosplenomegaly, unchanged from 2023. No splenomegaly. Reviewed, dictated and finalized at location A.
--- NOTE | ~2024-10-30 | XR_ITS ---
CHEST RADIOGRAPH CLINICAL HISTORY: pneumonia . COMPARISON: 10/30/2024 TECHNIQUE: Single portable view of the chest. FINDINGS The left mid lung is partially obscured due to pacemaker generator. Wires project over the right atrium and right ventricle. The remainder of the cardiomediastinal silhouette is otherwise unremarkable. Interval resolution of the left upper lobe opacification, seen on previous examination. Increased interstitial markings are now identified within the right lung base, for which cross-sectio nal imaging (noncontrast enhanced CT examination of the chest) is recommended for further evaluation. No discrete infiltrate is appreciated on either plain film evaluation. IMPRESSION: No focal infiltrate or effusion. Increased interstitial markings within the right lung base, likely representing atelectasis for which cross-sectional imaging (noncontrast enhanced CT examination of the chest) is suggested for further evaluation and characterization. Reviewed, dictated and finalized at location A. IMPRESSION: No focal infiltrate or effusion. Increased interstitial markings within the right lung base, likely representing atelectasis for which cross-sectional imaging (noncontrast enhanced CT examina tion of the chest) is suggested for further evaluation and characterization.
--- NOTE | ~2024-10-30 | CT_ITS ---
EXAM: CT brain wo con - 10/30/2024 9:50 CDT History: 89 years old Male with altered mental status COMPARISON: None available. PROCEDURE: CT of the head without contrast. Axial, sagittal and coronal reformatted planes were ruy luated. Automatic exposure control was used for this study. FINDINGS: BRAIN PARENCHYMA: No acute hemorrhage. No mass effect or herniation. Krishnamurthy-white matter differentiatio n is maintained. Mild chronic volume loss. Scattered hypodensities in subcortical and periventricular white matter, likely representing chronic microvascular ischemic changes in this age group. Atherosc lerotic calcification of the intracranial vessels is noted. VENTRICLES/ EXTRA-AXIAL SPACES: No hydrocephalus or extra-axial fluid collection. EXTRACRANIAL STRUCTURES: No calvarial fracture. IMPRESSION: No evidence for acute intracranial hemorrhage or calvarial fracture. Reviewed, dictated and finalized at location A.
--- OUTSIDE RECORDS SUMMARY | 2024-10-30 08:29 | XMS_ITS | Encounter Summary ---
Author Organization [facility] Address [address] [place] [address] Care Team Providers Care Technical Manager Name Role Phone Helen Yun MD Unavailable [phone] Rodrick Thompson MD Primary Care Provider [phone] Encounter Details Date Type Department Care Team (Late st Contact Info) Description 09/20/2019 Lab Requisition [facility] DermPath Lab [address] [facility] [place] [phone] Bety Ward DO [address] [facility] [address] [place] [address] Social History Tobacco Use Types Packs/Day Years Used Date Smoking Tobacco: Never Assessed Sex and Gender Information Value Date Recorded Sex Assigned at Not on file 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 Gender Identity Not on file Sexual Orientation Not on file documented as of this encounter Plan of Treatment Not on file documented as of this encounter Procedures Procedure Name Priority Date/Time Associated Diagnosis Comments DERMATOPATHOLOGY Routine 09/19/2019 12:0 0 AM CDT documented in this encounter Results * DERMATOPATHOLOGY (09/19/2019 12:00 AM CDT) Case Report Dermatopathology Report Case: [id number] Authorizing Provider: Bety Ward DO Collected: 09/19/2019 12:00 AM Ordering Location: [facility] DermPath Lab Received: 09/20/2019 09:03 AM Pathologist: Danita Mirza MD Specimens: A) - Skin, right forearm B) - Skin, left forearm proximal C) - Skin, left forearm distal 0 2:51 PM T DERMATOPATHOLOGY LABORATORY Final Diagnosis Specimen A. SKIN, right forearm: ACTINIC KERATOSIS, LICHENOID (L57.0) BENIGN VERRUCOUS KERATOSIS, INFLAMED (L82.1) Specimen B. 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 SKIN, left forearm distal: SQUAMOUS CELL CARCINOMA IN SITU, PRESENT AT THE BASE OF THE SPECIMEN (D04.62) (see microscopic description and comment) 0 2:51 PM T DERMATOPATHOLOGY LABORATORY at 1451 CDT Clinical History A-C: R/O NMSC. 0 2:51 PM T DERMATOPATHOLOGY LABORATORY Gross Description Specimen A: Received is one formalin filled container labeled with the patient's name and designated right forearm. The specimen consists of a shave biopsy measuring 10x8x2 mm. Jar 0. Specimen B: Received is one formalin filled container labeled with the patient's name and designated left forearm proximal. The specimen consists of a shave biopsy measuring 29v18k9 mm. Jar 0. Specimen C: Received is one formalin filled container labeled with the patient's name and designated left forearm distal. The specimen consists of a shave biopsy measuring 9x6x2 mm. Jar 0. 0 2:51 PM T DERMATOPATHOLOGY LABORATORY Microscopic Description Specimen A. SKIN, right forearm: There is focal parakeratosis. The lower half of the epidermis shows disorderly maturation of keratinocytes with nuclear pleomorphism. The dermis shows a band-like, chronic inflammatory infiltrate with occasional apoptotic keratinocytes and some basal vacuolar alteration. The adjacent epidermis shows hyperkeratosis, papillomatosis, hypergranulosis, and acanthosis. Inflammatory cells are present within the underlying dermis. These histological findings can be seen in a verruca vulgaris or a seborrheic keratosis. Specimen B. SKIN, left forearm proximal: The epidermis shows parakeratosis, full thickness disorderly maturation of keratinocytes, mitoses at different levels, and dyskeratotic cells. Specimen C. SKIN, left forearm distal: The epidermis shows parakeratosis, full thickness disorderly maturation of keratinocytes, mitoses at different levels, and dyskeratotic cells. The lesion extends to the base of the biopsy. COMMENT: An invasive squamous cell carcinoma cannot be ruled out. 0 2:51 PM CDT DERMATOPATHOLOGY LABORATORY Disclaimer An external and internal positive and negative controls are appropriate for the histochemical, immunohistochemical and immunofluorescence stain(s) in this case (if any), except where stated explicitly. The performance characteristics of the stain(s) cited in this report were developed and its performance characteristic determined by the Dermatopathology Laboratory at [facility], directed by Dr. Ravi Solis. These tests need not be, and therefore are not, approved by the [place] Food and Drug Administration. The tests are used for clinical purposes. Billing Codes Specimen Charges Stain Charges 18515 95596 46393 1 1 1 0 2:51 PM CDT DERMATOPATHOLOGY LABORATORY Embedded Images 0 2:51 PM CDT DERMATOPATHOLOGY LABORATORY Pathology/Cytology TISSUE SPECIMEN FROM SKIN / Unknown 09/19/2019 09/20/2019 9:03 AM CDT Miscellaneous samples (specimen) TISSUE SPECIMEN FROM SKIN / Unknown 09/19/2019 09/20/2019 9:03 AM CDT Miscellaneous samples (specimen) TISSUE SPECIMEN FROM SKIN / Unknown 09/19/2019 09/20/2019 9:03 AM CDT us Bety Ward DO LAB - PATHOLOGY/CYTOLOGY ORDERABLES Final Result Performing Organization Address City/State/[facility] Co de Phone Number DERMATOPATHOLOGY LABORATORY [facility] - Department of Dermatology [facility]/[phone] [place] [address] documented in this encounter Visit Diagnoses Not on filedocumented in this encounter Care Teams Technical Manager Relationship Specialty Start Date End Date Rodrick Thompson MD [address] [place] [address] PCP - General Internal Medicine 05/10/13 Helen Yun MD Orthopedic Surgery 05/10/13 documented as of this encounter
--- OUTSIDE RECORDS SUMMARY | 2024-10-30 08:30 | XMS_ITS | Encounter Summary ---
Author Organization [facility] Address [address] [place] [address] Care Team Providers Care Weatherization Director Name Role Phone Helen Yun MD Unavailable [phone] Rodrick Thompson MD Primary Care Provider [phone] Encounter Details Date Type Department Care Team (Late st Contact Info) Description 07/30/2024 Lab Requisition [facility] - Derm[facility] Lab [address] [facility] [place] [address] Bety Ward DO [address] [facility] [address] [place] [address] Social History Tobacco Use Types Packs/Day Years Used Date Smoking Tobacco: Never Assessed Sex and Gender Information Value Date Recorded Sex Assigned at Not on file 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 Gender Identity Not on file Sexual Orientation Not on file documented as of this encounter Plan of Treatment Not on file documented as of this encounter Procedures Procedure Name Priority Date/Time Associated Diagnosis Comments DERMATOPATHOLOGY Routine 07/30/2024 2:25 PM CDT documented in this encounter Results * DERMATOPATHOLOGY (07/30/2024 2:25 PM CDT) Case Report Dermatopathology Report Case: [id number] Authorizing Provider: Bety Ward DO Collected: 07/30/2024 02:25 PM Ordering Location: [facility] - Received: 07/31/2024 12:15 PM DermPath Lab Pathologist: Pippa Toribio MD Specimen: Skin, left upper arm 2:53 PM CDT DERMATOPATHOLOGY LABORATORY Final Diagnosis Specimen A. 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 The specimen consists of a shave biopsy measuring 8x7x1 mm. Jar 0. 2:53 PM CDT DERMATOPATHOLOGY LABORATORY Microscopic Description Specimen A. SKIN, left upper arm: The epidermis shows parakeratosis, full thickness disorderly maturation of keratinocytes, mitoses at different levels, and dyskeratotic cells. 2:53 PM CDT DERMATOPATHOLOGY LABORATORY Disclaimer An external and internal positive and negative controls are appropriate for the histochemical, immunohistochemical and immunofluorescence stain(s) in this case (if any), except where stated explicitly. The performance characteristics of the stain(s) cited in this report were developed and its performance characteristic determined by the Dermatopathology Laboratory at [facility], directed by Dr. Ravi Solis. These tests need not be, and therefore are not, approved by the [place] Food and Drug Administration. The tests are used for clinical purposes. Billing Codes Specimen Charges Stain Charges 60662 1 2:53 PM CDT DERMATOPATHOLOGY LABORATORY Embedded Images 2:53 PM CDT DERMATOPATHOLOGY LABORATORY Pathology/Cytolo gy TISSUE SPECIMEN FROM SKIN / Unknown 07/30/2024 2:25 PM CDT 07/31/2024 12:15 PM CDT us Bety Ward DO LAB - PATHOLOGY/CYTOLOGY ORDERABLES Final Result DERMATOPATHOLOGY LABORATORY [facility] - Department of Dermatology [address], [address] [phone] documented in this encounter Visit Diagnoses Not on filedocumented in this encounter Care Teams Weatherization Director Relationship Specialty Start Date End Date Rodrick Thompson MD [address] [id number] PCP - General Internal Medicine 05/10/13 Helen Yun MD Orthopedic Surgery 05/10/13 documented as of this encounter
--- OUTSIDE RECORDS SUMMARY | 2024-10-30 08:30 | XMS_ITS | Encounter Summary ---
Author Organization [facility] Address [address] [address] Care Team Providers Care Deck Steward Name Role Phone Helen Yun MD Unavailable Rodrick Thompson MD Primary Care Provider [phone] Encounter Details Date Type Department Care Team (Late st Contact Info) Description 12/06/2022 Lab Requisition [facility] - DermPath Lab [address] [facility] [place] [address] Bety Ward DO [address] [facility] [address] [place] [address] Social History Tobacco Use Types Packs/Day Years Used Date Smoking Tobacco: Never Assessed Sex and Gender Information Value Date Recorded Sex Assigned at Not on file 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 Gender Identity Not on file Sexual Orientation Not on file documented as of this encounter Plan of Treatment Not on file documented as of this encounter Procedures Procedure Name Priority Date/Time Associated Diagnosis Comments DERMATOPATHOLOGY Routine 12/06/2022 10:1 1 AM CDT documented in this encounter Results * DERMATOPATHOLOGY (12/06/2022 10:11 AM CDT) Case Report Dermatopathology Report Case: [id number] Authorizing Provider: Bety Ward DO Collected: 12/06/2022 10:11 AM Ordering Location: [facility] DermPath Lab Received: 12/07/2022 07:45 AM Pathologist: Arabella Solis MD Specimen: Skin, right ear 3 4:38 PM CDT DERMATOPATHOLOGY LABORATORY Final Diagnosis Specimen A. 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 The specimen consists of a shave biopsy measuring 7x7x2 and 7x5x1 mm. Jar 0. 3 4:38 PM CDT DERMATOPATHOLOGY LABORATORY Microscopic Description Specimen A. SKIN, right ear: There are nests of cytologically bland melanocytes within the dermis that mature with depth. 3 4:38 PM CDT DERMATOPATHOLOGY LABORATORY Disclaimer An external and internal positive and negative controls are appropriate for the histochemical, immunohistochemical and immunofluorescence stain(s) in this case (if any), except where stated explicitly. The performance characteristics of the stain(s) cited in this report were developed and its performance characteristic determined by the Dermatopathology Laboratory at [facility], directed by Dr. Ravi Solis. These tests need not be, and therefore are not, approved by the [place] Food and Drug Administration. The tests are used for clinical purposes. Billing Codes Specimen Charges Stain Charges 09769 1 3 4:38 PM CDT DERMATOPATHOLOGY LABORATORY Embedded Images 3 4:38 PM CDT DERMATOPATHOLOGY LABORATORY Pathology/Cytolo gy TISSUE SPECIMEN FROM SKIN / Unknown 12/06/2022 10:11 AM CDT 12/07/2022 7:45 AM CDT us Bety Ward DO LAB - PATHOLOGY/CYTOLOGY ORDERABLES Final Result DERMATOPATHOLOGY LABORATORY [facility] - Department of Dermatology [address], [address] [phone] documented in this encounter Visit Diagnoses Not on filedocumented in this encounter Care Teams Deck Steward Relationship Specialty Start Date End Date Rodrick Thompson MD [address] [facility] [address] [id number] PCP - General Internal Medicine 05/10/13 Helen Yun MD Orthopedic Surgery 05/10/13 documented as of this encounter
--- OUTSIDE RECORDS SUMMARY | 2024-10-30 08:30 | XMS_ITS | Clinical Summary ---
Author Organization [facility] Address [address] [facility] [place] [address] Care Team Providers Care Asbestos Shingle Inspector Name Role Phone Helen Yun MD Unavailable [phone] Rodrick Thompson MD Primary Care Provider [phone] Source Comments [facility],non-owned Affiliates and Associated Physician Practices is amultiple site organization consisting of ambulatory clinics and hospital sitesin [place], [place], [place] and [place]. This disclosure is being madepursuant to the Care Everywhere program and may not contain all information available regarding this patient. Last updated 17[facility] Allergies No known active allergies Medications * Be aware that medications may not be up to date on this document. Alwaysverify current medications with the patient. sitaGLIPtin (JANUVIA) 100 MG tablet Take 100 mg by mouth once daily. Active glimepiride (AMARYL) 2 MG tablet Take 2 mg by mouth daily with breakfast. Active metFORMIN (GLUCOPHAGE) 500 MG tablet Take 500 mg by mouth 2 times daily with breakfast and dinner. Active ranitidine (ZANTAC) 300 MG tablet Take 300 mg by mouth once daily. Active simvastatin (ZOCOR) 10 MG tablet Take 10 mg by mouth at bedtime. Active aspirin 81 MG tablet Take 81 mg by mouth once daily. Active Clopidogrel Bisulfate (PLAVIX PO) Take by mouth. Act chastity METOPROLOL TARTRATE PO Take by mouth. Act chastity lidocaine 1 % 9 mL, sodium bicarbonate 8.4 % 1 mLIndications:S houlder pain, left 8 mL by Infiltration route intra-OP multiple. 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 Gender Identity Not on file Sexual Orientation Not on file Last Filed Vital Signs Vital Sign Reading Time Taken Comments Blood Pressure - - Pulse - - Temperature - - Respiratory Rate - - Oxygen Saturation - - Inhaled Oxygen Concentration - - Weight 86.2 kg (190 lb) 05/10/2013 12:57 PM SUPERINTENDENT DISTRIBUTION Height 170.2 cm (5' 7) 05/10/2013 12:57 PM SUPERINTENDENT DISTRIBUTION Body Mass Index 29.76 05/10/2013 12:57 PM SUPERINTENDENT DISTRIBUTION Plan of Treatment Health Maintenance Due Date Last Done Comments MEDICARE AWV 12 MONTHS 1937 DTAP/TDAP/TD VACCINES (1 - Tdap) 1956 PNEUMOCOCCAL VACCINE 50+ (1 of 1 - PCV) 07/15/1987 ZOSTER VACCINE (1 of 2) 07/15/1987 Respiratory Syncytial Virus (RSV) Vaccine Pt: or over 60 yrs (1 - 1-dose 75+ series) 2012 COVID-19 VACCINE (2 - 2023-2 5 season) 2023 07/18/2020 DEPRESSION SCREENING 04/10/2024 INFLUENZA VACCINE (#1) 2024 05/12/2014 HEPATITIS B VACCINE Aged Out No longe r eligible based on patient's age to complete this topic HIB VACCINE Aged Out No longer eligi ble based on patient's age to complete this topic HPV VACCINE Aged Out No longer eligi ble based on patient's age to complete this topic MENINGOCOCCAL (Group B) VACC INE SHARED DECISION-MAKING Aged Out No longer eligibl e based on patient's age to complete this topic MENINGOCOCCAL GROUPS A/C/Y/W VACCINE Aged Out No longer eligible b ased on patient's age to complete this topic Insurance [facility] Address: [facility] [address] [place] [address] MEDICARE Care Teams Asbestos Shingle Inspector Relationship Specialty Start Date End Date Rodrick Thompson MD [address] [facility] [address], [place] [id number] PCP - General Internal Medicine 05/10/13 Helen Yun MD Orthopedic Surgery 05/10/13
--- NOTE | 2024-10-30 08:39 | ECG_ITS ---
Test Date: 2024-10-30 08:42:06 Measurements Intervals [place] Rate: 65 P: 47 ND: 148 QRS: -84 QRSD: 152 T: 37 QT: 433 QTc: 451 Interpretive Statements SINUS RHYTHM RIGHT BUNDLE BRANCH BLOCK [120+ ms QRS DURATION, UPRIGHT V1, 40+ ms S IN I/aVL/V4/V5/V6] LEFT ANTERIOR FASCICULAR BLOCK [QRS AXIS <= -45, QR IN I, RS IN II] POSSIBLE SEPTAL MYOCARDIAL INFARCTION , PROBABLY OLD [30 ms Q WAVE IN V1/V2] ABNORMAL ECG Electronically Signed On 10-30-2024 10:09:13 CDT by Dheeraj Beavers M.D.
[2024-10-30 08:54] LABS: Hematocrit 41.5 % (42.0-52.0); Hemoglobin 13.9 g/dL (14.0-18.0); Immature Granulocyte Percent A 0.7 % (0-0.5); Lymphocytes Absolute Auto 0.31 K/mm3 (0.9-3.2); Mean Corpuscular HGB Conc 33.5 g/dl (32-36); Mean Corpuscular Hemoglobin 28.5 pg (26-34); Mean Corpuscular Volume 85.2 fl (80-100); Nucleated Red Blood Cells Absolute Auto 0.000 K/mm3 (0.0-0.012); Nucleated Red Blood Cells Perc 0.0 % (0.0-0.2); Platelet Count Result 188 k/mm3 (150-375); Red Blood Count 4.87 M/mm3 (4.6-6.20); White Blood Count 3.0 K/mm3 (4.5-10.0)
[2024-10-30 09:20] LABS: Alanine Aminotransferase 42 U/L (6-50); Albumin Level 3.6 g/dL (3.5-5.1); Alkaline Phosphatase 87 U/L (38-126); Anion Gap 13 mmol/L (4-12); Aspartate Amino Transferase 33 U/L (17-59); Bilirubin,Total 0.6 mg/dL (0.2-1.3); Blood Urea Nitrogen 23 mg/dL (9-20); Calcium 8.4 mg/dL (8.4-10.2); Carbon Dioxide 16 mmol/L (22-30); Chloride 99 mmol/L (98-107); Estimated CRCL calculation 44 ml/min; Estimated Glomerular Filt Rate > 60; Glucose 212 mg/dL (65-110); Potassium 3.0 mmol/L (3.4-5.0); Sodium 128 mmol/L (137-145); Total Protein 6.6 g/dL (6.3-8.2)
--- NOTE | 2024-10-30 09:26 | ED_ITS ---
HPI - Weakness General Chief complaint: Weakness Stated complaint: weak Time Seen by Provider: 10/30/24 09:00 History of Present Illness HPI Narrative: Patient is an 89-year-old male who presents to the ER with complaints of weakness and fatigue. He reports his symptoms started approximately 2-3 days ago, on Monday. Patient reports he has not been experiencing any pain nor has he had these symptoms in the past. He reports ?I just feel worn out. His reports he has been sleeping all day on Monday and Monday. Patient denies any chest pain, shortness of breath, recent fevers, or headaches. He does endorse worsening lower back pain. Patient endorses a history of diabetes, hypertension, pacemaker placement, and has a ?blockage that makes him vomit after he eats sometimes. He reports his diabetes is usually controlled by oral medications. Related Data Home Medications ?Medication ?Instructions ?Recorded ?Confirmed ?Last Taken ?Type aspirin 81 mg chewable tablet 81 mg PO DAILY 07/20/23 10/30/24 07/20/23 History calcium carb-vitamin D3 ER 600 mg 1 tablet PO QPM 07/20/23 10/30/24 07/20/23 History (1,500 mg)-500 unit tablet,ER 24 hr calcium carb-vitamin D3 ER 600 mg 1,200 tablet PO DAILY 07/20/23 10/30/24 07/20/23 History (1,500 mg)-500 unit tablet,ER 24 hr clopidogrel 75 mg tablet 75 mg PO DAILY 07/20/23 10/30/24 07/20/23 History empagliflozin 25 mg tablet 25 mg PO DAILY 07/20/23 10/30/24 07/20/23 History melatonin 10 mg tablet 10 mg PO HS PRN Sleep 07/20/23 10/30/24 07/19/23 History metoprolol tartrate 50 mg tablet 50 mg PO BID 07/20/23 10/30/24 07/20/23 History multivitamin with minerals-folic 1 tablet PO DAILY 07/20/23 10/30/24 07/20/23 History acid 80 mcg chewable tablet (Centrum Adult 50 Plus) pantoprazole 40 mg tablet,delayed 40 mg PO QAM 07/20/23 10/30/24 07/20/23 History release simvastatin 5 mg tablet 5 mg PO DAILY 07/20/23 10/30/24 07/20/23 History tamsulosin 0.4 mg capsule 0.4 mg PO DAILY 07/20/23 10/30/24 07/20/23 History sitagliptin 100 mg tablet 100 mg PO DAILY 10/30/24 10/30/24 Unknown History Allergies Allergy/AdvReac Type Severity Reaction Status Date / Time No Known Allergies Allergy Verified 10/30/24 08:51 Review of Systems 2 Review of Systems: All systems reviewed & are unremarkable except as noted in HPI and below PMFSH Past Medical History Medical History History of small bowel obstruction HTN (hypertension) CAD (coronary artery disease) Diabetes Surgical History Surgical History History of cholecystectomy Family History Family History Father Heart disease Diabetes mellitus Sibling Heart disease Diabetes mellitus Son Diabetes mellitus Social History Social History Smoking status: Never smoker Second hand tobacco smoke exposure: No Alcohol intake: never Substance use: never Substance use type: does not use Do You Feel Safe in your Home?: Yes Lack of Transportation: No Lack of Food: Never True Current Housing: I Have Housing Concerned About Future Housing: No Difficulty Paying Gas/Electric Bills: No Difficulty Paying for Meds: No Currently Unemployed: No Education: High School Diploma/GED Difficulty w/ Childcare or Family Care: No Living arrangements: with family Occupation/Education: retired Gender identity (if verbalized by the patient): Male Sexual Orientation (if Verbalized by the Patient): Straight or Heterosexual Spiritual care concerns: No Exam 2 Narrative: GENERAL: Well appearing, well-nourished, non-toxic, in no acute distress. HEAD: Normocephalic, atraumatic. NECK: Supple. No adenopathy, no masses. RESPIRATORY: Airway patent, respirations nonlabored. Clear to auscultation bilaterally, no rales, rhonchi, wheezing. CARDIOVASCULAR: Paced rhythm without rubs, or gallops. Peripheral pulses 2+ and equal bilaterally. ABDOMINAL: Soft, nontender, nondistended, no hepatosplenomegaly. Normoactive BS. MUSCULOSKELETAL: Moves all extremities. Strength/ROM intact without gross deformities. SKIN: Warm, dry, normal color. No rashes. NEURO: A&O X3. Speech clear. Cranial nerves II-XII intact. No ataxic movements. PSYCHIATRIC: Appropriate mood and affect. Normal interaction. Course Vital Signs Vital signs: Vital Signs Temperature 36.9 C 10/30/24 08:40 Pulse Rate 64 10/30/24 08:40 Respiratory Rate 18 10/30/24 08:40 Blood Pressure 119/54 L 10/30/24 08:40 Pulse Oximetry 100 10/30/24 08:40 Oxygen Delivery Room Air 10/30/24 08:40 Temperature 36.9 C 10/30/24 08:40 Pulse Rate 63 10/30/24 10:03 Respiratory Rate 19 10/30/24 10:03 Blood Pressure 105/56 L 10/30/24 10:03 Pulse Oximetry 100 10/30/24 10:03 Oxygen Delivery Room Air 10/30/24 08:40 MDM - Weakness MDM Narrative Medical decision making narrative: Patient is an 89-year-old male who presents to the ER with complaints of weakness and fatigue. He reports his symptoms started approximately 2-3 days ago, on Monday. Patient reports he has not been experiencing any pain nor has he had these symptoms in the past. He reports ?I just feel worn out. His reports he has been sleeping all day on Monday and Monday. Patient denies any chest pain, shortness of breath, recent fevers, or headaches. He does endorse worsening lower back pain. Patient endorses a history of diabetes, hypertension, pacemaker placement, and has a ?blockage that makes him vomit after he eats sometimes. He reports his diabetes is usually controlled by oral medications. Labs Ordered: CBC, CMP, TSH, lactic acid, CK, PTT, INR, UA Imaging Ordered: Chest x-ray, brain CT Medications Ordered: 1 L normal saline IV bolus x 2, potassium chloride IV, azithromycin IV, Rocephin IV Results: Patient's CBC indicates a white blood cell count of 3.0, hemoglobin is 13.9, hematocrit of 41.5%. Coags indicate a PT of 16.3 seconds. Patient's chemistry indicates a sodium of 128, potassium of 3.0, carbon dioxide is 16, anion gap of 13, BUN 23, and glucose of 212. Patient's chest x-ray indicates M ild vascular congestion. Increased interstitial markings. Superimposed infection cannot be excluded. Clinical correlation is recommended. Short-term follow-up chest radiograph is recommended after appropriate clinical therapy. Pt's CT brain indicates No evidence for acute intracranial hemorrhage or calvarial fracture. Diagnosis: Pneumonia, hyponatremia, hypokalemia Patient Education/Shared MDM: Results of lab work and imaging shared with patient and his . It was advised patient be admitted to the hospital for further evaluation and treatment. Patient and his verbalized understanding and are in agreement with plan. IV antibiotics will be continued. Patient will be admitted to the med/surg floor with tele. CRITICAL CARE ADDENDUM: Indication: hyponatremia, pneumonia, hypokalemia, Time type: intermittent I provided a total of 45 minutes of critical care excluding separately billable procedures. This includes time w/ EMS, initial bedside evaluation, reviewing old records, review of testing done while under my care, discussion w/ the family, nurses, groundwater consultant and guiding the patient?s care while in the emergency department. Approximate time distribution: 10 minutes ? Initial evaluation, d/w involved parties, attempting to gather old records. 10 minutes ? Documenting medical record 10 minutes ? Review of results (EKGs, labs, imaging) 5 minutes ? Serial repeat bedside evaluation 10 minutes ? Discussing case with multiple providers Please see main chart for details. Excludes separately billable procedures. Differential Diagnosis Differential diagnosis: Likely hypoglycemia, hypothyroidism, rhabdomyolysis and dehydration Lab Data Attestation: I reviewed the patient's lab results. 10/30/24 08:44 10/30/24 08:44 Labs: Lab Results 10/30/24 10/30/24 10/30/24 Range/Units 08:44 09:37 10:26 WBC 3.0 L (4.5-10.0) K/mm3 RBC 4.87 (4.6-6.20) M/mm3 Hgb 13.9 L (14.0-18.0) g/dL Hct 41.5 L (42.0-52.0) % MCV 85.2 (80-100) fl MCH 28.5 (26-34) pg MCHC 33.5 (32-36) g/dl RDW 14.3 (11.5-14.5) % Plt Count 188 (150-375) k/mm3 MPV 10.4 (7.4-10.4) fl Immature Gran % (Auto) 0.7 H (0-0.5) % Neut % (Auto) 77.9 H (45.5-73.1) % Lymph % (Auto) 10.2 L (18.3-44.2) % [place] % (Auto) 10.2 H (2.6-8.5) % Eos % (Auto) 0.0 (0-4.4) % Baso % (Auto) 1.0 (0.2-1.2) % Lymph # (Auto) 0.31 L (0.9-3.2) K/mm3 [place] # (Auto) 0.3 (0.1-0.6) K/mm3 Eos # (Auto) 0.0 (0-0.3) K/mm3 Baso # (Auto) 0.0 (0.0-0.1) K/mm3 Abs Immat Gran (auto) 0.02 (0.00-0.031) K/mm3 Absolute Neuts (auto) 2.4 (1.3-6.7) K/mm3 Absolute Nucleated RBC 0.000 (0.0-0.012) K/mm3 Nucleated RBC % 0.0 (0.0-0.2) % PT 16.3 H (11.1-14.7) Seconds INR 1.3 APTT 35.2 (22.3-36.8) Seconds Sodium 128 L (137-145) mmol/L Potassium 3.0 L (3.4-5.0) mmol/L Chloride 99 (98-107) mmol/L Carbon Dioxide 16 L (22-30) mmol/L Anion Gap 13 H (4-12) mmol/L BUN 23 H D (9-20) mg/dL Creatinine 0.97 (0.7-1.3) mg/dL Estim Creat Clear Calc 44 ml/min Estimated GFR > 60 (59 - ) Glucose 212 H (65-110) mg/dL Lactic Acid 1.0 (0.7-2.0) mmol/L Calcium 8.4 (8.4-10.2) mg/dL Total Bilirubin 0.6 (0.2-1.3) mg/dL AST 33 (17-59) U/L ALT 42 (6-50) U/L Alkaline Phosphatase 87 (38-126) U/L Total Creatine Kinase 256 H (55-170) U/L Total Protein 6.6 (6.3-8.2) g/dL Albumin 3.6 (3.5-5.1) g/dL TSH Pending Urine Color Dark yellow (Yellow) Urine Appearance Clear (Clear) Urine pH 5.5 (5.0-9.0) Ur Specific [place] 1.031 (1.001-1.035) Urine Protein 1+ H (Negative) mg/dL Urine Glucose (UA) 3+ H (Negative) mg/dL Urine Ketones 1+ H (Negative) mg/dL Ur Blood (Man) Negative (Negative) Urine Nitrate Negative (Negative) Urine Bilirubin Negative (Negative) Urine Urobilinogen 0.2 (<2.0) mg/dL Leukocyte Esterase Rfl Negative (Negative) MITCHELL/UL Urine RBC 0-2 (0-2) /hpf Urine WBC 0-5 (0-3) /hpf Ur Squamous Epith Cells Occasional (Few) /hpf Urine Bacteria None seen /hpf Urine Casts 0-2 Imaging Data Attestation: I personally reviewed and interpreted this imaging study as follows: Radiologist's impression: Impressions Chest X-Ray 10/30/24 09:57 IMPRESSION: Mild vascular congestion. Increased interstitial markings. Superimposed infection cannot be excluded. Clinical correlation is recommended. Short-term follow-up chest radiograph is recommended after appropriate clinical therapy. Head CT 10/30/24 10:05 IMPRESSION: No evidence for acute intracranial hemorrhage or calvarial fracture. Critical Care Time Critical Care Time Critical Care Time: Yes Total Critical Care Time: 45 Discharge Plan Discharge Clinical Impression: Acute hyponatremia, Acute hypokalemia, Pneumonia Patient Disposition: Still a Patient Condition: Stable Patient Language: Mauritian Prescriptions: No Action clopidogrel 75 mg Tablet 75 mg PO DAILY tamsulosin 0.4 mg Capsule 0.4 mg PO DAILY simvastatin 5 mg Tablet 5 mg PO DAILY pantoprazole 40 mg Tablet,Delayed Release (Dr/Ec) 40 mg PO QAM metoprolol tartrate 50 mg tablet 50 mg PO BID aspirin 81 mg Tablet,Chewable 81 mg PO DAILY calcium carbonate-vitamin D3 600 mg(1,500mg) -500 unit Tablet Extended Release 24 Hr 1,200 tablet PO DAILY Rx Instructions: take 2 tablets AM, 1 tablet PM melatonin 10 mg Tablet 10 mg PO HS PRN (Reason: Sleep) empagliflozin 25 mg Tablet 25 mg PO DAILY Centrum Adult 50 Plus 80 mcg Tablet,Chewable 1 tablet PO DAILY calcium carbonate-vitamin D3 600 mg(1,500mg) -500 unit Tablet Extended Release 24 Hr 1 tablet PO QPM Rx Instructions: takes 2 tablets in AM, 1 tablet PM sitagliptin 100 mg tablet 100 mg PO DAILY Follow-up/Referrals: Josie Price MD [Primary Care Provider] -
--- OUTSIDE RECORDS SUMMARY | 2024-10-30 09:46 | XMS_ITS | Encounter Summary ---
Author Organization [facility] Address [address] [place] [address] Care Team Providers Care Mill House Supervisor Name Role Phone Helen Yun MD Unavailable [phone] Rodrick Thompson MD Primary Care Provider [phone] Encounter Details Date Type Department Care Team (Late st Contact Info) Description 09/20/2019 Lab Requisition [facility] DermPath Lab [address] [facility] [place] [phone] Bety Ward DO [address] [facility] [address] [place] [address] Social History Tobacco Use Types Packs/Day Years Used Date Smoking Tobacco: Never Assessed Sex and Gender Information Value Date Recorded Sex Assigned at Not on file 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 Gender Identity Not on file Sexual Orientation Not on file documented as of this encounter Plan of Treatment Not on file documented as of this encounter Procedures Procedure Name Priority Date/Time Associated Diagnosis Comments DERMATOPATHOLOGY Routine 09/19/2019 12:0 0 AM CDT documented in this encounter Results * DERMATOPATHOLOGY (09/19/2019 12:00 AM CDT) Case Report Dermatopathology Report Case: [id number] Authorizing Provider: Bety Wrad DO Collected: 09/19/2019 12:00 AM Ordering Location: [facility] DermPath Lab Received: 09/20/2019 09:03 AM [...] specimen consists of a shave biopsy measuring 22i76j4 mm. Jar 0. Specimen C: Received is [...] characteristic determined by the Dermatopathology Laboratory at [facility], directed by Dr. Ravi Solis. These tests need not be, and therefore are not, approved by the [place] Food and Drug Administration. The tests are used for clinical purposes. Billing Codes Specimen Charges Stain Charges 30369 50529 14212 1 1 1 0 2:51 PM CDT [...] PATHOLOGY/CYTOLOGY ORDERABLES Final Result Performing Organization Address City/State/[facility] Co de Phone Number DERMATOPATHOLOGY LABORATORY [facility] - Department of Dermatology Licensed [facility]/[phone] [place] [address] documented in this encounter Visit Diagnoses Not on filedocumented in this encounter Care Teams Mill House Supervisor Relationship Specialty Start Date End Date Rodrick Thompson MD [address] [facility] [address] [place] [address] PCP - General Internal Medicine 05/10/13 Helen Yun MD Orthopedic Surgery 05/10/13 documented as of this encounter
--- OUTSIDE RECORDS SUMMARY | 2024-10-30 09:46 | XMS_ITS | Encounter Summary ---
Author Organization [facility] Address [address] [place] [address] Care Team Providers Care Light Armored Vehicle Officer Name Role Phone Helen Yun MD Unavailable [phone] Rodrick Thompson MD Primary Care Provider [phone] Encounter Details Date Type Department Care Team (Late st Contact Info) Description 12/06/2022 Lab Requisition [facility] - DermPath Lab [address] [facility], [place] [address] Bety Ward DO [address] [facility] 3 [place] [address] Social History Tobacco Use Types Packs/Day Years Used Date Smoking Tobacco: Never Assessed Sex and Gender Information Value Date Recorded Sex Assigned at Not on file 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 Gender Identity Not on file Sexual Orientation Not on file documented as of this encounter Plan of Treatment Not on file documented as of this encounter Procedures Procedure Name Priority Date/Time Associated Diagnosis Comments DERMATOPATHOLOGY Routine 12/06/2022 10:1 1 AM CDT documented in this encounter Results * DERMATOPATHOLOGY (12/06/2022 10:11 AM CDT) Case Report Dermatopathology Report Case: [id number] Authorizing Provider: Bety Ward DO Collected: 12/06/2022 10:11 AM Ordering Location: [facility] DermPath Lab Received: 12/07/2022 07:45 [...] characteristic determined by the Dermatopathology Laboratory at [facility], directed by Dr. Ravi oSlis. These tests need not be, and therefore are not, approved by the [place] Food and Drug Administration. The tests are used for clinical purposes. Billing Codes Specimen Charges Stain Charges 99669 1 3 4:38 PM CDT DERMATOPATHOLOGY LABORATORY Embedded Images 3 4:38 PM CDT DERMATOPATHOLOGY LABORATORY Pathology/Cytolo gy TISSUE SPECIMEN FROM SKIN / Unknown 12/06/2022 10:11 AM CDT 12/07/2022 7:45 AM CDT us Bety Ward DO LAB - PATHOLOGY/CYTOLOGY ORDERABLES Final Result DERMATOPATHOLOGY LABORATORY [facility] - Department of Dermatology [address], [address] [phone] documented in this encounter Visit Diagnoses Not on filedocumented in this encounter Care Teams Light Armored Vehicle Officer Relationship Specialty Start Date End Date Rodrick Thompson MD [address] [facility] [address], [place] [phone] PCP - General Internal Medicine 05/10/13 Helen Yun MD Orthopedic Surgery 05/10/13 documented as of this encounter
--- OUTSIDE RECORDS SUMMARY | 2024-10-30 09:46 | XMS_ITS | Clinical Summary ---
Author Organization [facility] Address [address] [place] [address] Care Team Providers Care Knifeman Name Role Phone Juani Sweet rAabella [facility] Primary Care Provider + Pal Ramos MD Unavailable Nithin Fischer MD Unavailable [phone] Allergies Active Allergy Reactions Criticality Noted Date Comments Lisinopril Unknown 05/04/2007 Medications aspirin EC (ECOTRIN) 81 MG tablet Take 1 tablet (81 mg total) by mouth daily. Active Calcium Carb-Cholecalci ferol (CALCIUM CARBONATE-VITAM IN D) 600-400 MG-UNIT tablet Take 1 tablet by mouth daily. Active clopidogrel (PLAVIX) 75 MG tablet Take 1 tablet (75 mg total) by mouth daily. Active escitalopram (LEXAPRO) 20 MG tablet Take 1 tablet (20 mg total) by mouth daily. Active NOVOLOG FLEXPEN 100 UNIT/ML injection (PEN) Inject 15 Units into the skin 2 (two) times a day. 2 Active Multiple Vitamins-Minera ls (CENTRUM SILVER) Tab Take 1 tablet by mouth daily. Active pantoprazole EC (PROTONIX) 40 MG tablet Take 1 tablet (40 mg total) by mouth daily. Active simvastatin (ZOCOR) 5 MG tablet Take 1 tablet (5 mg total) by mouth every evening. 2 Active tamsulosin (FLOMAX) 0.4 MG Cap Take 1 capsule (0.4 mg total) by mouth nightly. Active metoprolol tartrate (LOPRESSOR) 50 MG tabletIndicatio ns:Essential hypertension,SS S (sick sinus syndrome) ([facility]) Take 1 tablet (50 mg total) by mouth 2 (two) times daily with meals. Dx code 110, 149.5 180 tablet 4 Active BASAGLAR KWIKPEN 100 UNIT/ML injection (PEN) Inject 50 Units into the skin nightly at bedtime. 4 Active empagliflozin (JARDIANCE) 25 MG tablet Take 0.5 tablets (12.5 mg total) by mouth daily. 4 Active Continuous Glucose Sensor (FREESTYLE JASMYNE 3 SENSOR) MiscIndications :Type 2 diabetes mellitus with diabetic neuropathy, with long-term current use of insulin ([facility]) Use every 14 days 2 each 11 4 Active Continuous Glucose Biodiesel Production Technician (FREESTYLE JASMYNE 3 READER) DeviceIndicatio ns:Type 2 diabetes mellitus with diabetic neuropathy, with long-term current use of insulin ([facility]) Use as instructed 1 each 4 Active Glucose Blood (ONETOUCH VERIO) test stripIndication s:Type 2 diabetes mellitus with stage 2 chronic kidney disease, without long-term current use of insulin ([facility]) 1 strip by Other route 3 (three) times daily. Use as instructed. ICD10: E11.65 300 strip 1 4 Active Active Problems Problem Noted Date Diagnosed Date Congestive heart failure ([facility]) 01/25 Gastroesophageal reflux disease 01/25/2023 Obstructive sleep apnea syndrome in adult 2022 Overview (01/25/2023): Nov 25, 2022 Entered By: ELLEN JACOME Comment: CPAP Peripheral vascular disease 11/07/2022 CAP (community acquired pneumonia) 10/02/2022 Acute on chronic diastolic heart failure ([facility]) 10/02/2022 CHF exacerbation ([facility]) 10/02/2022 Acute metabolic encephalopathy 09/30/2022 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) 04/10 Overview (04/26/2022): MDT ADVISA PACEMAKER IMPLANTED 03/22/16 FOR SSS Pacemaker 12/27/2021 Overview (04/26/2022): MDT ADVISA PACEMAKER IMPLANTED 03/22/16 FOR SSS Diabetic macular edema ([facility]) 022 Overview (12/24/2021): 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 Last Assessment & Plan: Stable today No reoccurence F/u for general eye exam locally as planned Type 2 diabetes mellitus (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 Encounters Date Type Department Care Team Description 09/19/2024 2:00 PM CDT Allied Health/Nurse Visit [facility], [place] [address] [place] [address] Pal Ramos MD Remote Device Check 09/19/2024 Travel 09/18/2024 Telephone [facility], [address] [address] Caitlin Underwood MA No Show from Last 3 Months Immunizations Immunization Administration Dates Next Due Influenza (Generic) 05/12/2014 JASBIR (TOMASA & TOMASA) COVID-19 AD26 VACCINE 0.5 ML IM SUSP 07/18/2020 Pneumococcal (Prevnar 13) 05/30/2012 Tdap (Generic) 09/28/2017 Family History Medical History Relation Comments Heart Attack Brother 1 Heart Attack Brother 2 Heart Attack Father Cancer Sister Relation Status Comments Brother 1 (Age 86) Brother 2 (Age 53) Father (Age 76) Mother (Age 39) Paternal Grandfather Sister (Age 56) Social History Tobacco Use Types Packs/Day Years Used Date Smoking Tobacco: Never Smokeless Tobacco: Never Tobacco Cessation:Counseling Given: Not Answered Alcohol Use Standard Drinks/Week Comments Not Currently 0 (1 standard drink = 0.6 oz pur e alcohol) Humiliation, Afraid, Rape, and Kick questionnair e Answer Date Recorded Within the last year, have y ou been afraid of your partner or ex-partner? No 10/02/2022 Within the last year, have y ou been humiliated or emotionally abused in other ways by your partner or ex-partner? No Within the last year, have y ou been kicked, hit, slapped, or otherwise physically hurt by your partner or ex-partner? No 10/02/2022 Within the last year, have y ou been raped or forced to have any kind of sexual activity by your partner or ex-partner? No 10/02/2022 Overall Financial Resource Strain (CARDIA) Answe r Date Recorded How hard is it for you to pa y for the very basics like food, housing, medical care, and heating? Not hard at all 10/02/2022 PHQ-2 Answer Date Recorded Patient Health Questionnaire-2 Score 0 10/10/2022 Hunger Vital Sign Answer Date Recorded Within the past 12 months, y ou worried that your food would run out before you got the money to buy more. Never true 10/03/19 23 Within the past 12 months, t he food you bought just didn't last and you didn't have money to get more. Never true 10/02/2022 PRAPARE - Transportation Answer Date Re corded In the past 12 months, has l ack of transportation kept you from medical appointments or from getting medications? No 09/09 In the past 12 months, has l ack of transportation kept you from meetings, work, or from getting things needed for daily living? No 10/02/2022 Housing Stability Vital Sign Answer Randall e Recorded In the last 12 months, was t here a time when you were not able to pay the mortgage or rent on time? No 10/02/2022 In the last 12 months, how many places have you lived? 2 10/02/2022 In the last 12 months, was t here a time when you did not have a steady place to sleep or slept in a [place] (including now)? No 10/02/2022 Sex and Gender Information Value Date Recorded Sex Assigned at Not on file Legal Sex Male 7:47 PM CDT Gender Identity Not on file Sexual Orientation Not on file Last Filed Vital Signs Vital Sign Reading Time Taken Comments Blood Pressure 111/66 07/26/2023 1:32 PM CDT Pulse 63 07/26/2023 1:32 PM CDT Temperature 36.8 C (98.2 F) 07/26/2023 1:32 PM CDT Respiratory Rate 14 11/18/2022 8:54 AM CDT Oxygen Saturation 96% 07/26/2023 1:32 PM CDT Inhaled Oxygen Concentration - - Weight 83.5 kg (184 lb) 07/26/2023 1:32 PM CDT Height 167.6 cm (5' 6) 07/26/2023 1:32 PM CDT Body Mass Index 29.7 07/26/2023 1:32 PM CDT Plan of Treatment Upcoming Encounters Date Type Department Care Team (Late st Contact Info) Description 12/23/2024 2:05 PM CDT Allied Health/Nurse Visit [facility], [address] [place] [address] Nithin Fischer MD Three [place] [address] [address] Health Maintenance Due Date Last Done Comments ASCVD Statin 1935 Diabetes: Retinopathy Eye Exam 07/15/1953 Annual Medicare Wellness Visit 2002 RSV Immunization or 60+ Years (1 - 1-dose 75+ series) 2012 ASCVD LDL 12/17/2022 12/17/2021 Lipid Panel 12/17/2022 12/17/2021 COVID-19 Vaccine ( season) 2023 03/03/2023, 01/21/2022, 02/10/2021, Additional history exists Hemoglobin A1C 01/25/2024 07/26/2023, 09/09, 08/09/2022, Additional history exists PHQ-2 (Physician Solomon) 04/10/2024 DTaP, Tdap and Td Vaccines (3 - Td or Tdap) 11/26/2029 11/27/2019, 09/28/2017, 03/03/2009, Additional history exists Zoster Vaccines Completed 02/05/2020, 11/08, 07/07/2014 Pneumococcal Vaccine: 50+ Years Completed 08/31/2021, 06/19/2014, 05/30/2012 Meningococcal B Vaccine Aged Out No l onger eligible based on patient's age to complete this topic Meningococcal Vaccine Aged Out No eren maribell eligible based on patient's age to complete this topic RSV Immunizations Under 20 Months Aged Out No longer eligible based on patient's age to complete this topic Goals Goal Patient Goal Type Associated Problems Recent Progress Patient-Stated? Author Patient will return to prior living situation and remain independent in ADLs upon discharge from hospital Lifestyle No Yasmeen Rojas RN Medical Devices Implanted Type Area Information And Referral Director Device Identifier Shelf Expiration Date Model / Serial / Lot Ra Lead-03/22/20 16 Implanted: (Quantity not on file) Lead Implant [employer] CARDIAC RHYTHM AND HEART FAILURE - DIV M [id number] / [id number] / Rv Lead-03/22/20 16 Implanted: (Quantity not on file) Lead Implant [employer] CARDIAC RHYTHM AND HEART FAILURE - DIV M [id number] / [id number] / Bao Pacemaker- Implanted: (Quantity not on file) Pacemaker [employer] CARDIAC RHYTHM AND HEART FAILURE - DIV M [id number] / [id number] / Description:MRI safe/nl 2022 Procedures Procedure Name Priority Date/Time Associated Diagnosis Comments HEMOGLOBIN, GLYCOSYLATED Routine 07/26/2023 Type 2 diabetes mellitus with diabetic neuropathy, with long-term current use of insulin LIPID PANEL Routine 12/17/2021 from Last 3 Months or Most Recently Relevant to Health Maintenance Results * HEMOGLOBIN, GLYCOSYLATED (07/26/2023) HGB A1C 6.4 % [facility] Comment:provider reviewed in office 07/26/2023 Haydee Yoo MD LABORATORY Final Result [facility] [address] [place] [phone], * LIPID PANEL (12/17/2021) CHOLESTEROL 62 TRIGLYCERIDES 90 HDL 20 LDL (CALCULATED) 24 us Doc [facility] LABORATORY Edited Resul t - Final from Last 3 Months or Most Recently Relevant to Health Maintenance Insurance MEDICARE RUST Advance Directives * Full Code (Latest Code Status on File) Date Activated Date Inactivated Comments 10/02/2022 1:00 PM 10/05/2022 3:42 PM * Full Code Date Activated Date Inactivated Comments 09/30/2022 1:29 PM 10/02/2022 10:39 AM * DNR Date Activated Date Inactivated Comments 09/30/2022 12:21 PM 09/30/2022 1:29 PM Care Teams Knifeman Relationship Specialty Start Date End Date Juani Sweet, [facility]- [address] [address] PCP - General NURSE PRACTITIONER 07/25/22 Pal Ramos MD [address] [address] Consulting Physician CLINICAL CARDIAC ELECTROPHYSIOLOGY 02/28/24 Nithin Fischer MD [facility]. [address] [id number] Consulting Physician CLINICAL CARDIAC ELECTROPHYSIOLOGY 09/19/24
--- OUTSIDE RECORDS SUMMARY | 2024-10-30 09:46 | XMS_ITS | Clinical Summary ---
Author Organization [facility] Address [address] [facility] [place] [address] Care Team Providers Care Route Service Manager Name Role Phone Helen Yun MD Unavailable [phone] Rodrick Thompson MD Primary Care Provider [phone] Source Comments [facility],non-owned Affiliates and Associated Physician Practices is amultiple site organization consisting of ambulatory clinics and hospital sitesin [place], [place], [place] and [place]. This disclosure is being madepursuant to the Care Everywhere program and may not contain all information available regarding this patient. Last updated 17.[employer] [facility] Allergies No known active allergies Medications * [...] on file Legal Sex Male 5:58 AM COKE PRODUCTION HEATER Gender Identity Not on file Sexual Orientation Not on file Last Filed Vital Signs Vital Sign Reading Time Taken Comments Blood Pressure - - Pulse - - Temperature - - Respiratory Rate - - Oxygen Saturation - - Inhaled Oxygen Concentration - - Weight 86.2 kg (190 lb) 05/10/2013 12:57 PM COKE PRODUCTION HEATER Height 170.2 cm (5' 7) 05/10/2013 12:57 PM COKE PRODUCTION HEATER Body Mass Index 29.76 05/10/2013 12:57 PM COKE PRODUCTION HEATER Plan of Treatment Health Maintenance Due Date [...] age to complete this topic Insurance [employer]M MEDICARE Care Teams Route Service Manager Relationship Specialty Start Date End Date Rodrick Thompson MD [address] [facility] [address], [place] [phone] PCP - General Internal Medicine 05/10/13 Helen Yun MD Orthopedic Surgery 05/10/13
--- OUTSIDE RECORDS SUMMARY | 2024-10-30 09:46 | XMS_ITS | Encounter Summary ---
Author Organization [facility] Address [address] [place] [address] Care Team Providers Care Clinical Professor Name Role Phone Non-Staff, Provider Primary Care Provider Juani Padilla [facility] Primary Care Provider + Pal Ramos MD Unavailable Nithin Fischer MD Unavailable [phone] Encounter Details Date Type Department Care Team (Late st Contact Info) Description 12/29/2021 Abstract [facility] [address] Néstor Munoz MA Social History Tobacco Use Types Packs/Day Years Used Date Smoking Tobacco: Never Smokeless Tobacco: Never Alcohol Use Standard Drinks/Week Comments Not Currently 0 (1 standard drink = 0.6 oz pur e alcohol) Sex and Gender Information Value Date Recorded Sex Assigned at Not on file Legal Sex Male 7:47 PM CDT Gender Identity Not on file Sexual Orientation Not on file COVID-19 Exposure Response Date Recorded In the last 10 days, have yo u been in contact with someone who was confirmed or suspected to have Coronavirus/COVID-19? No / Unsure 12/27/2021 11:49 AM CDT documented as of this encounter Plan of Treatment Upcoming Encounters Date Type Department Care Team (Late st Contact Info) Description 12/23/2024 2:05 PM CDT Allied Health/Nurse Visit [facility], [address] [place] [address] Nithin Fischer MD Three [facility]. [address] [place] [address] documented as of this encounter Procedures Procedure Name Priority Date/Time Associated Diagnosis Comments HEMOGLOBIN, GLYCOSYLATED Routine 12/17/2021 COMPREHENSIVE METABOLIC PANEL Routine 12/17/2021 LIPID PANEL Routine 12/17/2021 CBC, MANUAL DIFF Routine 12/17/2021 THYROID STIM HORMONE TSH Routine 12/17/2021 VITAMIN D, 25 OH Routine 12/17/2021 documented in this encounter Results * VITAMIN D, 25 OH (12/17/2021) VITAMIN D 25 HYDROXY S/P/B 39.5 12/17/2021 us Doc [facility] LABORATORY Final Result * COMPREHENSIVE METABOLIC PANEL (12/17/2021) SODIUM S/P/B 136 GLUCOSE 155 mg/dL AST 33 BUN 16 CREATININE S/P/B 0.90 0.7 - 1.3 CALCIUM S/P/B 8.3 POTASSIUM S/P/B 4.7 CHLORIDE S/P/B 102 ALT 54 GFR ESTIMATE 84 us Doc [facility] LABORATORY Edited Resul t - Final * LIPID PANEL (12/17/2021) CHOLESTEROL 62 TRIGLYCERIDES 90 HDL 20 LDL (CALCULATED) 24 us Doc [facility] LABORATORY Edited Resul t - Final * CBC, MANUAL DIFF (12/17/2021) WBC 7.5 HGB 13.3 HCT 40.6 PLT 236 us Doc [facility] LABORATORY Edited Resul t - Final * HEMOGLOBIN, GLYCOSYLATED (12/17/2021) Pathologist [facility] HGB A1C 7.4 % us Doc [facility] LABORATORY Edited Resul t - Final * THYROID STIM HORMONE, TSH (12/17/2021) Pathologist [facility] TSH 1.967 us Doc [facility] LABORATORY Edited Resul t - Final documented in this encounter Visit Diagnoses Not on filedocumented in this encounter Additional Health Concerns Infection Onset Date Last Indicated Resolved Time COVID-19 Rule Out 09/30/2022 09/30/2022 09/30/2022 8:37 AM CDT documented as of this encounter Care Teams Clinical Professor Relationship Specialty Start Date End Date Non-Staff, Provider PCP - General 09/13/20 07/24/22 Juani Sweet, [facility] [address] [place] [address] PCP - General NURSE PRACTITIONER 07/25/22 Pal Ramos MD [facility]. [address] [facility] [place] [address] Consulting Physician CLINICAL CARDIAC ELECTROPHYSIOLOGY 02/28/24 Nithin Fischer MD [facility]. [address] [place] [address] Consulting Physician CLINICAL CARDIAC ELECTROPHYSIOLOGY 09/19/24 documented as of this encounter
--- OUTSIDE RECORDS SUMMARY | 2024-10-30 09:46 | XMS_ITS | Encounter Summary ---
Author Organization [facility] Address [address] [facility] [place] [address] Care Team Providers Care Auditing Clerk Name Role Phone Helen Yun MD Unavailable [phone] Rodrick Thompson MD Primary Care Provider [phone] Encounter Details Date Type Department Care Team (Late st Contact Info) Description 07/30/2024 Lab Requisition [facility] - DermPath Lab [address] [facility], [place] [address] Bety Ward DO [address] [facility] [address] [place] [address] Social History Tobacco Use Types Packs/Day Years Used Date Smoking Tobacco: Never Assessed Sex and Gender Information Value Date Recorded Sex Assigned at Not on file Legal Sex Male 5:58 AM CDC ASSOCIATE Gender Identity Not on file Sexual Orientation Not on file documented as of this encounter Plan of Treatment Not on file documented as of this encounter Procedures Procedure Name Priority Date/Time Associated Diagnosis Comments DERMATOPATHOLOGY Routine 07/30/2024 2:25 PM CDT documented in this encounter Results * DERMATOPATHOLOGY (07/30/2024 2:25 PM CDT) Case Report Dermatopathology Report Case: [id number] Authorizing Provider: Bety Ward DO Collected: 07/30/2024 02:25 PM Ordering Location: [facility] - Received: 07/31/2024 12:15 PM [...] characteristic determined by the Dermatopathology Laboratory at [facility], directed by Dr. Ravi Solis. These tests need not be, and therefore are not, approved by the [place] Food and Drug Administration. The tests are used for clinical purposes. Billing Codes Specimen Charges Stain Charges 33652 1 2:53 PM CDT DERMATOPATHOLOGY LABORATORY Embedded Images 2:53 PM CDT DERMATOPATHOLOGY LABORATORY Pathology/Cytolo gy TISSUE SPECIMEN FROM SKIN / Unknown 07/30/2024 2:25 PM CDT 07/31/2024 12:15 PM CDT us Bety Ward DO LAB - PATHOLOGY/CYTOLOGY ORDERABLES Final Result DERMATOPATHOLOGY LABORATORY [facility] - Department of Dermatology [address], [address] [phone] documented in this encounter Visit Diagnoses Not on filedocumented in this encounter Care Teams Auditing Clerk Relationship Specialty Start Date End Date Rodrick Thompson MD [address] [phone] PCP - General Internal Medicine 05/10/13 Helen Yun MD Orthopedic Surgery 05/10/13 documented as of this encounter
[2024-10-30 09:51] LABS: Add Urine Microscopic? YES; Appearance Urine Clear (Clear); Glucose Urine UA 3+ mg/dL (Negative); Leukocyte Esterase Ur Negative LEU/UL (Negative); Nitrate Urine Negative (Negative); Non Pathogenic Casts 0-2; Specific Grav Ur 1.031 (1.001-1.035)
[2024-10-30] MEDS: SODIUM CHLORIDE 0.9% IV 1,000 ML 999 ML IV CONT (10:02)
[2024-10-30] MEDS: KCL 20 MEQ/D5/0.45% SOD CHL 1,000 ML 125 ML IV CONT (10:38)
[2024-10-30 10:50] LABS: INR 1.3; Prothrombin Time 16.3 Seconds (11.1-14.7)
[2024-10-30 10:51] LABS: Partial Thromboplastin Time 35.2 Seconds (22.3-36.8)
[2024-10-30] MEDS: STAT BOLUS COMMUNICATION ORDER 1000 ML IV CONT (11:02)
[2024-10-30] MEDS: cefTRIAXone 1 GM in SODIUM CHLORIDE 0.9% IV 50 ML 100 ML IVPB (11:02)
[2024-10-30 11:03] LABS: Creatine Kinase 256 U/L (55-170)
[2024-10-30 11:42] LABS: Thyroid Stimulating Hormone 4.060 uIU/mL (0.465-4.680)
--- OUTSIDE RECORDS SUMMARY | 2024-10-30 11:57 | XMS_ITS | Encounter Summary ---
Author Organization [facility] Address [address] [place] [address] Care Team Providers Care Supervisor Gear Repair Name Role Phone Helen Yun MD Unavailable [phone] Rodrick Thompson MD Primary Care Provider [phone] Encounter Details Date Type Department Care Team (Late st Contact Info) Description 09/20/2019 Lab Requisition [facility] DermPath Lab [address] [facility], [place] [phone] Bety Ward DO [address] [facility] 3 [place] [address] Social History Tobacco Use Types Packs/Day Years Used Date Smoking Tobacco: Never Assessed Sex and Gender Information Value Date Recorded Sex Assigned at Not on file Legal Sex Male 5:58 AM FREELANCE TRANSLATOR Gender Identity Not on file Sexual Orientation Not on file documented as of this encounter Plan of Treatment Not on file documented as of this encounter Procedures Procedure Name Priority Date/Time Associated Diagnosis Comments DERMATOPATHOLOGY Routine 09/19/2019 12:0 0 AM CDT documented in this encounter Results * DERMATOPATHOLOGY (09/19/2019 12:00 AM CDT) Case Report Dermatopathology Report Case: [id number] Authorizing Provider: Bety Ward DO Collected: 09/19/2019 12:00 AM Ordering Location: [facility] DermPath Lab Received: 09/20/2019 09:03 AM Pathologist: [...] specimen consists of a shave biopsy measuring [id number] mm. Jar 0. Specimen C: Received is [...] characteristic determined by the Dermatopathology Laboratory at [facility], directed by Dr. Ravi Solis. These tests need not be, and therefore are not, approved by the [place] Food and Drug Administration. The tests are used for clinical purposes. Billing Codes Specimen Charges Stain Charges 95685 29489 48210 1 1 1 0 2:51 PM CDT [...] PATHOLOGY/CYTOLOGY ORDERABLES Final Result Performing Organization Address City/State/[facility] Co de Phone Number DERMATOPATHOLOGY LABORATORY [facility] - Department of Dermatology [facility]/[phone] [place] [address] documented in this encounter Visit Diagnoses Not on filedocumented in this encounter Care Teams Supervisor Gear Repair Relationship Specialty Start Date End Date Rodrick Thompson MD [address] [address] [place] [address] PCP - General Internal Medicine 05/10/13 Helen Yun MD Orthopedic Surgery 05/10/13 documented as of this encounter
--- OUTSIDE RECORDS SUMMARY | 2024-10-30 11:57 | XMS_ITS | Encounter Summary ---
Author Organization [facility] Address [address] [place] [address] Care Team Providers Care Environmental Health Officer Name Role Phone Non-Staff, Provider Primary Care Provider Juani Padilla [facility] Primary Care Provider + Pal Ramos MD Unavailable Nithin Fischer MD Unavailable [phone] Encounter Details Date Type Department Care Team (Late st Contact Info) Description 12/29/2021 Abstract [facility] [address] Néstor Munoz MA Social History Tobacco Use [...] 12/23/2024 2:05 PM CDT Allied Health/Nurse Visit [facility] THREE [facility], [address] [place] [address] Nithin Fischer MD [address] [facility]. [address] [place] [address] documented as of this encounter Procedures Procedure [...] - Final * HEMOGLOBIN, GLYCOSYLATED (12/17/2021) Pathologist [facility] HGB A1C 7.4 % us Doc [facility] LABORATORY Edited Resul t - Final * THYROID STIM HORMONE, TSH (12/17/2021) Pathologist [facility] TSH 1.967 us Doc [facility] LABORATORY Edited Resul t - Final documented in this encounter Visit Diagnoses Not on filedocumented in this encounter Additional Health Concerns Infection Onset Date Last Indicated Resolved Time COVID-19 Rule Out 09/30/2022 09/30/2022 09/30/2022 8:37 AM CDT documented as of this encounter Care Teams Environmental Health Officer Relationship Specialty Start Date End Date Non-Staff, Provider PCP - General 09/13/20 07/24/22 Juani Sweet, [facility] [address] [place] [address] PCP - General NURSE PRACTITIONER 07/25/22 Pal Ramos MD [facility]. [address] [facility] [place] [address] Consulting Physician CLINICAL CARDIAC ELECTROPHYSIOLOGY 02/28/24 Nithin Fischer MD [facility]. [address] [place] [address] Consulting Physician CLINICAL CARDIAC ELECTROPHYSIOLOGY 09/19/24 documented as of this encounter
--- OUTSIDE RECORDS SUMMARY | 2024-10-30 11:57 | XMS_ITS | Encounter Summary ---
Author Organization [facility] Address [address] [facility] [facility] [place] [address] Care Team Providers Care Roll Handler Name Role Phone Helen Yun MD Unavailable Rodrick Thompson MD Primary Care Provider [phone] Encounter Details Date Type Department Care Team (Late st Contact Info) Description 12/06/2022 Lab Requisition [facility] - DermPath Lab [address] [facility], [place] [address] Bety Ward DO [address] [facility] 3 [place] [address] Social History Tobacco Use Types Packs/Day Years Used Date Smoking Tobacco: Never Assessed Sex and Gender Information Value Date Recorded Sex Assigned at Not on file 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 Gender Identity Not on file Sexual Orientation Not on file documented as of this encounter Plan of Treatment Not on file documented as of this encounter Procedures Procedure Name Priority Date/Time Associated Diagnosis Comments DERMATOPATHOLOGY Routine 12/06/2022 10:1 1 AM CDT documented in this encounter Results * DERMATOPATHOLOGY (12/06/2022 10:11 AM CDT) Case Report Dermatopathology Report Case: [id number] Authorizing Provider: Bety Ward DO Collected: 12/06/2022 10:11 AM Ordering Location: [facility] DermPath Lab Received: 12/07/2022 07:45 AM Pathologist: [...] by the Dermatopathology Laboratory at [facility], directed by Dr. Ravi Solis. These tests need not be, and therefore are not, approved by the [place] Food and Drug Administration. The tests are used for clinical purposes. Billing Codes Specimen Charges Stain Charges 13436 1 3 4:38 PM CDT DERMATOPATHOLOGY LABORATORY Embedded Images 3 4:38 PM CDT DERMATOPATHOLOGY LABORATORY Pathology/Cytolo gy TISSUE SPECIMEN FROM SKIN / Unknown 12/06/2022 10:11 AM CDT 12/07/2022 7:45 AM CDT us Bety Ward DO LAB - PATHOLOGY/CYTOLOGY ORDERABLES Final Result DERMATOPATHOLOGY LABORATORY [facility] - Department of Dermatology [address], [address] [phone] documented in this encounter Visit Diagnoses Not on filedocumented in this encounter Care Teams Roll Handler Relationship Specialty Start Date End Date Rodrick Thompson MD [address] [facility] [address] [id number] PCP - General Internal Medicine 05/10/13 Helen Yun MD Orthopedic Surgery 05/10/13 documented as of this encounter
--- OUTSIDE RECORDS SUMMARY | 2024-10-30 11:57 | XMS_ITS | Clinical Summary ---
Author Organization [facility] Address [address] [place] [address] Care Team Providers Care Insurance Healthcare Representative Name Role Phone Juani Sweet Arabella [facility] Primary Care Provider + Pal Ramos MD Unavailable Nithin Fischer MD Unavailable [phone] Allergies Active Allergy Reactions Criticality Noted Date [...] tabletIndicatio ns:Essential hypertension,SS S (sick sinus syndrome) ([facility]) Take 1 tablet (50 mg total) by [...] neuropathy, with long-term current use of insulin ([facility]) Use every 14 days 2 each 11 4 Active Continuous Glucose Aluminum Container Tester (FREESTYLE JASMYNE 3 READER) DeviceIndicatio ns:Type 2 diabetes mellitus with diabetic neuropathy, with long-term current use of insulin ([facility]) Use as instructed 1 each 4 Active Glucose Blood (ONETOUCH VERIO) test stripIndication s:Type 2 diabetes mellitus with stage 2 chronic kidney disease, without long-term current use of insulin ([facility]) 1 strip by Other route 3 (three) times daily. Use as instructed. ICD10: E11.65 300 strip 1 4 Active Active Problems Problem Noted Date Diagnosed Date Congestive heart failure ([facility] HHS/[facility]) 01/25 Gastroesophageal reflux disease 01/25/2023 Obstructive sleep apnea syndrome in adult 2022 Overview (01/25/2023): Nov 25, 2022 Entered By: ELLEN JACOME Comment: CPAP Peripheral vascular disease 11/07/2022 CAP (community acquired pneumonia) 10/02/2022 Acute on chronic diastolic heart failure ([facility]/ [facility]) 10/02/2022 CHF exacerbation ([facility]) 10/02/2022 Acute metabolic encephalopathy 09/30/2022 Coronary artery disease invo lving [place] coronary artery of [place] heart without angina pectoris 08/09/2022 SSS (sick sinus syndrome) ([facility]) 04/10 Overview (04/26/2022): MDT ADVISA PACEMAKER IMPLANTED 03/22/16 FOR SSS Pacemaker 12/27/2021 Overview (04/26/2022): MDT ADVISA PACEMAKER IMPLANTED 03/22/16 FOR SSS Diabetic macular edema ([facility]) 022 Overview (12/24/2021): 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 Overview (11/18/2022): Last Assessment & Plan: Stable NPAT prn RTC me prn Squamous cell carcinoma of upper extremity 11/13 Encounters Date Type Department Care Team Description 09/19/2024 2:00 PM CDT Allied Health/Nurse Visit [facility], [place] [address] [place] [address] Pal Ramos MD Remote Device Check 09/19/2024 Travel 09/18/2024 Telephone [facility], [address] [address] Caitlin Underwood MA No Show from Last [...] Allied Health/Nurse Visit [facility] [address] [facility], [address] [place] [address] Nithin Fischer MD Three [place] [address] [address] Health Maintenance Due Date Last Done Comments ASCVD Statin 1935 Diabetes: Retinopathy Eye Exam 07/15/1953 Annual Medicare Wellness Visit 2002 RSV Immunization or 60+ Years (1 - 1-dose 75+ series) 2012 ASCVD LDL 12/17/2022 12/17/2021 Lipid Panel 12/17/2022 12/17/2021 COVID-19 Vaccine ( season) 2023 03/03/2023, 01/21/2022, 02/10/2021, Additional history exists Hemoglobin A1C 01/25/2024 07/26/2023, 09/09, 08/09/2022, Additional history exists PHQ-2 (Physician [place]) 04/10/2024 DTaP, Tdap and Td Vaccines (3 [...] Rojas RN Medical Devices Implanted Type Area Lookback Coordinator Device Identifier Shelf Expiration Date Model / Serial / Lot Ra Lead-03/22/20 16 Implanted: (Quantity not on file) Lead Implant [employer] CARDIAC RHYTHM AND HEART FAILURE - DIV M [id number] / [id number] / Rv Lead-03/22/20 16 Implanted: (Quantity not on file) Lead Implant [employer] CARDIAC RHYTHM AND HEART FAILURE - DIV M [id number] / [id number] / Bao Pacemaker- Implanted: (Quantity not on file) Pacemaker [employer] CARDIAC RHYTHM AND HEART FAILURE - DIV M [id number] / [id number] / Description:MRI safe/nl 2022 Procedures Procedure Name Priority Date/Time Associated Diagnosis Comments HEMOGLOBIN, GLYCOSYLATED Routine 07/26/2023 Type 2 diabetes mellitus with diabetic neuropathy, with long-term current use of insulin LIPID PANEL Routine 12/17/2021 from Last 3 Months or Most Recently Relevant to Health Maintenance Results * HEMOGLOBIN, GLYCOSYLATED (07/26/2023) HGB A1C 6.4 % [facility] Comment:provider reviewed in office 07/26/2023 Haydee Yoo MD LABORATORY Final Result [facility] [address] [place] [phone], * LIPID PANEL (12/17/2021) CHOLESTEROL 62 TRIGLYCERIDES 90 HDL 20 LDL (CALCULATED) 24 us Doc [facility] Abstract LABORATORY Edited Resul t - Final from Last 3 Months or Most Recently Relevant to Health Maintenance Insurance [facility] Advance Directives * Full Code (Latest Code Status on File) Date Activated Date Inactivated Comments 10/02/2022 1:00 PM 10/05/2022 3:42 PM * Full Code Date Activated Date Inactivated Comments 09/30/2022 1:29 PM 10/02/2022 10:39 AM * DNR Date Activated Date Inactivated Comments 09/30/2022 12:21 PM 09/30/2022 1:29 PM Care Teams Insurance Healthcare Representative Relationship Specialty Start Date End Date Juani Sweet, [facility]- [address] [address] PCP - General NURSE PRACTITIONER 07/25/22 Pal Ramos MD [address] [address] Consulting Physician CLINICAL CARDIAC ELECTROPHYSIOLOGY 02/28/24 Nithin Fischer MD [facility]. [address] [address] Consulting Physician CLINICAL CARDIAC ELECTROPHYSIOLOGY 09/19/24
--- OUTSIDE RECORDS SUMMARY | 2024-10-30 11:57 | XMS_ITS | Clinical Summary ---
Author Organization [facility] Address [address] [facility] [place] [address] Care Team Providers Care Rejogger Name Role Phone Helen Yun MD Unavailable [phone] Rodrick Thompson MD Primary Care Provider [phone] Source Comments [facility],non-owned Affiliates and Associated Physician Practices is amultiple site organization consisting of ambulatory clinics and hospital sitesin [place], [place] and [place]. This disclosure is being madepursuant to the Care Everywhere program and may not contain all information available regarding this patient. 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 Gender Identity Not on file Sexual Orientation Not on file Last Filed Vital Signs Vital Sign Reading Time Taken Comments Blood Pressure - - Pulse - - Temperature - - Respiratory Rate - - Oxygen Saturation - - Inhaled Oxygen Concentration - - Weight 86.2 kg (190 lb) 05/10/2013 12:57 PM MAINFRAME ARCHITECT Height 170.2 cm (5' 7) 05/10/2013 12:57 PM MAINFRAME ARCHITECT Body Mass Index 29.76 05/10/2013 12:57 PM MAINFRAME ARCHITECT Plan of Treatment Health Maintenance Due Date [...] this topic Insurance [employer]ICARE Care Teams Rejogger Relationship Specialty Start Date End Date Rodrick Thompson MD [address] [facility] [address] [phone] PCP - General Internal Medicine 05/10/13 Helen Yun MD Orthopedic Surgery 05/10/13
--- OUTSIDE RECORDS SUMMARY | 2024-10-30 11:57 | XMS_ITS | Encounter Summary ---
Author Organization [facility] Address [address] [facility] [place] [address] Care Team Providers Care Pet Counselor Name Role Phone Helen Yun MD Unavailable [phone] Rodrick Thompson MD Primary Care Provider [phone] Encounter Details Date Type Department Care Team (Late st Contact Info) Description 07/30/2024 Lab Requisition [facility] - DermPath Lab [address] [facility], [place] [address] Bety Ward DO [address] [facility] 3 [place] [address] Social History Tobacco Use Types Packs/Day Years Used Date Smoking Tobacco: Never Assessed Sex and Gender Information Value Date Recorded Sex Assigned at Not on file 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 Gender Identity Not on file Sexual Orientation Not on file documented as of this encounter Plan of Treatment Not on file documented as of this encounter Procedures Procedure Name Priority Date/Time Associated Diagnosis Comments DERMATOPATHOLOGY Routine 07/30/2024 2:25 PM CDT documented in this encounter Results * DERMATOPATHOLOGY (07/30/2024 2:25 PM CDT) Case Report Dermatopathology Report Case: [id number] Authorizing Provider: Bety Ward DO Collected: 07/30/2024 02:25 PM Ordering Location: [facility] - Received: 07/31/2024 12:15 [...] characteristic determined by the Dermatopathology Laboratory at [facility], directed by Dr. Ravi Solis. These tests need not be, and therefore are not, approved by the [place] Food and Drug Administration. The tests are used for clinical purposes. Billing Codes Specimen Charges Stain Charges 25705 1 2:53 PM CDT DERMATOPATHOLOGY LABORATORY Embedded Images 2:53 PM CDT DERMATOPATHOLOGY LABORATORY Pathology/Cytolo gy TISSUE SPECIMEN FROM SKIN / Unknown 07/30/2024 2:25 PM CDT 07/31/2024 12:15 PM CDT us Bety Ward DO LAB - PATHOLOGY/CYTOLOGY ORDERABLES Final Result DERMATOPATHOLOGY LABORATORY [facility] - Department of Dermatology [address], [address] [phone] documented in this encounter Visit Diagnoses Not on filedocumented in this encounter Care Teams Pet Counselor Relationship Specialty Start Date End Date Rodrick Thompson MD [address] [phone] PCP - General Internal Medicine 05/10/13 Helen Yun MD Orthopedic Surgery 05/10/13 documented as of this encounter
[2024-10-30] MEDS: AZITHROMYCIN IV 500 MG in SODIUM CHLORIDE 0.9% IV 250 ML IVPB (12:41)
--- NOTE | 2024-10-30 13:23 | ADMGEN ---
This patient, Dilip Aldana, was admitted to [facility] Surg Room 332-01. Patient/family oriented to hospital policies and general routines including ID bracelet, bed and alarms, visiting hours, pain management, procedures, bathroom and other care routines, personal items, smoking policy, room service/diet, and visiting hours. Information on how to activate the Rapid Response Team has been discussed. Patient/Family are encouraged to report perceived risks to care and to ask questions if they do not understand what they are told or what they should do.
--- NOTE | 2024-10-30 13:26 | P.HP_ITS ---
H&P: HPI History of Present Illness Date/Time: 10/30/24 13:26 Chief Complaint: Weakness Narrative: 89-year-old male past medical history of hypertension, CAD and diabetes who presents the hospital with complaints of weakness and fatigue for the last 2-3 days. Patient is oriented to self only, he knows he is confused. Son at bedside. Shows the patient is more confused than normal. Patient does admit to having chest pain. Points to his sternum. Lab work shows leukopenia at 3.0, hemoglobin of 13.9, platelets of 188, sodium of 129, potassium of 3.0, carbon dioxide 16, anion gap of 13, BUN of 23, creatinine 0.97, glucose of 212, CK of 256, UA is not infective. Chest x-ray shows mild vascular congestion. With possible infection. Head CT shows no acute process. Review of Systems Review of Systems: ROS unobtainable: Yes unobtainable due to mental status PMFSH Past Medical History Medical History History of small bowel obstruction HTN (hypertension) CAD (coronary artery disease) Diabetes Surgical History Surgical History History of cholecystectomy Family History Family History Father Heart disease Diabetes mellitus Sibling Heart disease Diabetes mellitus Son Diabetes mellitus Social History Social History Smoking status: Never smoker Second hand tobacco smoke exposure: No Alcohol intake: former Substance use: never Substance use type: does not use Do You Feel Safe in your Home?: Yes Lack of Transportation: No Lack of Food: Never True Current Housing: I Have Housing Concerned About Future Housing: No Difficulty Paying Gas/Electric Bills: No Difficulty Paying for Meds: No Currently Unemployed: No Education: High School Diploma/GED Difficulty w/ Childcare or Family Care: No Living arrangements: with family Occupation/Education: retired Gender identity (if verbalized by the patient): Male Sexual Orientation (if Verbalized by the Patient): Straight or Heterosexual Spiritual care concerns: No Meds Home Medications and Allergies Home Medications ?Medication ?Instructions ?Recorded ?Confirmed ?Type aspirin 81 mg chewable tablet 81 mg PO DAILY 07/20/23 10/30/24 History calcium carb-vitamin D3 ER 600 mg 1 tablet PO QPM 07/20/23 10/30/24 History (1,500 mg)-500 unit tablet,ER 24 hr calcium carb-vitamin D3 ER 600 mg 1,200 tablet PO DAILY 07/20/23 10/30/24 History (1,500 mg)-500 unit tablet,ER 24 hr clopidogrel 75 mg tablet 75 mg PO DAILY 07/20/23 10/30/24 History empagliflozin 25 mg tablet 25 mg PO DAILY 07/20/23 10/30/24 History melatonin 10 mg tablet 10 mg PO HS PRN Sleep 07/20/23 10/30/24 History metoprolol tartrate 50 mg tablet 50 mg PO BID 07/20/23 10/30/24 History multivitamin with minerals-folic 1 tablet PO DAILY 07/20/23 10/30/24 History acid 80 mcg chewable tablet (Centrum Adult 50 Plus) pantoprazole 40 mg tablet,delayed 40 mg PO QAM 07/20/23 10/30/24 History release simvastatin 5 mg tablet 5 mg PO DAILY 07/20/23 10/30/24 History tamsulosin 0.4 mg capsule 0.4 mg PO DAILY 07/20/23 10/30/24 History sitagliptin 100 mg tablet 100 mg PO DAILY 10/30/24 10/30/24 History Allergies Allergy/AdvReac Type Severity Reaction Status Date / Time No Known Allergies Allergy Verified 10/30/24 08:51 Vital Signs Vital Signs - 24 hr 10/30/24 08:38 10/30/24 08:40 10/30/24 09:01 Temperature 98.4 F Pulse Rate 66 64 63 Respiratory Rate 23 H 18 20 Blood Pressure 119/54 L 119/54 L 98/56 L Pulse Oximetry 100 100 Oxygen Delivery Room Air 10/30/24 10:02 10/30/24 10:03 10/30/24 10:46 Temperature Pulse Rate 63 63 64 Respiratory Rate 18 19 20 Blood Pressure 105/56 L 105/56 L 107/50 L Pulse Oximetry 100 100 100 Oxygen Delivery 10/30/24 11:01 10/30/24 11:16 10/30/24 11:31 Temperature Pulse Rate 63 65 65 Respiratory Rate 19 20 17 Blood Pressure 102/49 L 103/50 L 102/50 L Pulse Oximetry 100 Oxygen Delivery 10/30/24 11:46 Temperature Pulse Rate 66 Respiratory Rate 19 Blood Pressure 102/47 L Pulse Oximetry Oxygen Delivery Exam Narrative: General: well appearing, appears stated age. HEENT: normocephalic, atraumatic. Mucous membranes moist. EOMI, PERRLA, bilateral sclera anicteric, no conjunctival injection. Neck supple without JVD, lymphadenopathy, or bruit. Respiratory: clear to ascultation bilaterally. No rales/rhonic/wheezes. Cardiovascular: Regular rate and rhythm, normal S1-S2 upon ascultation. No murmurs, rubs, or clicks. PMI is nondisplaced, capillary refill less than 3 second. Abdomen: Soft, round, no pulsatile masses, nondistended and nontender. No rebound, no guarding. No CVA tenderness, no hepatosplenomegaly. Bowel sounds present to all four quadrants. No high pitch or tinkling sounds, resonant to percussion. Extremities: No cyanosis, clubbing, or edema present. Pulses are palpable 2/2. Active ROM to all four extremities. Neuro: Alert and orientated x 4. PERRLA. Cranial nerves 2-12 intact without focal deficit. Skin: Warm, dry, and intact, without rash, erythema, or lesion. Psych: pleasant, cooperative, normal speech, normal affect, no hallucinations, no dysarthia H&P: Results Labs Labs: Short CBC 10/30/24 Range/Units 08:44 WBC 3.0 L (4.5-10.0) K/mm3 Hgb 13.9 L (14.0-18.0) g/dL Hct 41.5 L (42.0-52.0) % Plt Count 188 (150-375) k/mm3 BMP 10/30/24 08:44 Sodium 128 L Potassium 3.0 L Chloride 99 Carbon Dioxide 16 L BUN 23 H D Creatinine 0.97 Glucose 212 H Calcium 8.4 Cardiac Enzymes 10/30/24 Range/Units 10:26 Total Creatine Kinase 256 H (55-170) U/L Liver Function 10/30/24 Range/Units 08:44 Total Bilirubin 0.6 (0.2-1.3) mg/dL AST 33 (17-59) U/L ALT 42 (6-50) U/L Alkaline Phosphatase 87 (38-126) U/L Albumin 3.6 (3.5-5.1) g/dL Urine 10/30/ Range/Units 09:37 Urine Color Dark yellow (Yellow) Urine Appearance Clear (Clear) Urine pH 5.5 (5.0-9.0) Ur Specific [place] 1.031 (1.001-1.035) Urine Protein 1+ H (Negative) mg/dL Urine Glucose (UA) 3+ H (Negative) mg/dL Assessment and Plan Assessment and plan (1) Pneumonia: Code(s): J18.9 - Pneumonia, unspecified organism Status: Acute Assessment and Plan: IV Rocephin and azithromycin Guaifenesin DuoNebs Blood cultures pending (2) Acute hypokalemia: Code(s): E87.6 - Hypokalemia Status: Acute Assessment and Plan: Replete as needed BMP in the morning (3) Acute hyponatremia: Code(s): E87.1 - Hypo-osmolality and hyponatremia Status: Acute Assessment and Plan: Fluid bolus and IVF Repeat BMP in the morning (4) Diabetes: Code(s): E11.9 - Type 2 diabetes mellitus without complications Status: Acute Assessment and Plan: Continue Jardiance Accu-Domi hwang HS SSI (5) CAD (coronary artery disease): Code(s): I25.10 - Atherosclerotic heart disease of [place] coronary artery without angina pectoris Status: Acute Assessment and Plan: Continue aspirin, metoprolol, Jardiance, Zocor and Plavix (6) BPH (benign prostatic hyperplasia): Code(s): N40.0 - Benign prostatic hyperplasia without lower urinary tract symptoms Status: Acute Assessment and Plan: Continue Flomax (7) KATARINA (obstructive sleep apnea): Code(s): G47.33 - Obstructive sleep apnea (adult) (pediatric) Status: Acute Assessment and Plan: Home CPAP Quality VTE Prophylaxis VTE prophylaxis: mechanical ordered and pharmacologic ordered Hospitalist [facility] Advance Care Plan I have confirmed that the patient's Advanced Care Plan is present, code status is documented, or surrogate decision maker is listed in patient medical record.: Yes Medication Reconciliation I have utilized all available resources to obtain, update and review the patients current medications (includes all prescriptions, OTC, herbals, cannabis, and nutritional supplements).: Yes
[2024-10-30] MEDS: guaiFENesin 12 HR 600 MG TABCR 1200 MG PO ×2 (14:15→21:04)
[2024-10-30 14:18] LABS: Anion Gap 13 mmol/L (4-12); Blood Urea Nitrogen 23 mg/dL (9-20); Calcium 8.6 mg/dL (8.4-10.2); Carbon Dioxide 16 mmol/L (22-30); Chloride 98 mmol/L (98-107); Estimated CRCL calculation 42 ml/min; Estimated Glomerular Filt Rate > 60; Glucose 211 mg/dL (65-110); Potassium 3.1 mmol/L (3.4-5.0); Sodium 127 mmol/L (137-145)
[2024-10-30] MEDS: IPRATROPIUM 0.5 MG/ALBUTEROL SULFATE 2.5 MG AMPUL.NEB 3 ML INHALATION ×2 (14:45→20:53)
[2024-10-30] MEDS: SODIUM CHLORIDE 0.9% IV 1,000 ML 125 ML IV CONT ×2 (15:07→23:46)
[2024-10-30 16:15] LABS: CRP > 9.0 mg/dL (<1.0)
[2024-10-30] MEDS: SIMVASTATIN 5 MG TABLET PO (21:04)
[2024-10-30] MEDS: METOPROLOL TARTRATE 50 MG TAB PO (21:04)
--- NOTE | 2024-10-30 23:09 | P.HP_ITS ---
H&P: HPI History of Present Illness Date/Time: 10/30/24 23:09 Chief Complaint: Weakness Narrative: 89-year-old male past medical history of hypertension, CAD and diabetes who presents the hospital with complaints of weakness and fatigue for the last 2-3 days. Patient states for the last several days so very tired and sleeping most of the days. Which is unlike him. He has narrow complaints of malaise. He de nies nausea vomiting fever chills. Patient states that sometimes he has trouble swallowing food however he denies weight loss. Lab work shows leukopenia at 3.0, hemoglobin of 13.9, platelets of 188, sodium of 129, potassium of 3.0, carbon dioxide 16, anion gap of 13, BUN of 23, creatinine 0.97, glucose of 212, CK of 256, UA is not infective. Chest x-ray shows mild vascular congestion. With possible infection. Head CT shows no acute process. Review of Systems Review of Systems: 12 systems were reviewed and are negativ e except for as per HPI. [facility] Past Medical History Medical History History of small bowel obstruction HTN (hypertension) CAD (coronary artery disease) Diabetes Surgical History Surgical History History of cholecystectomy Family History Family History Father Heart disease Diabetes mellitus Sibling Heart disease Diabetes mellitus Son Diabetes mellitus Social History Social History Smoking status: Never smoker Second hand tobacco smoke exposure: No Alcohol intake: former Substance use: never Substance use type: does not use Do You Feel Safe in your Home?: Yes Lack of Transportation: No Lack of Food: Never True Current Housing: I Have Housing Concerned About Future Housing: No Difficulty Paying Gas/Electric Bills: No Difficulty Paying for Meds: No Currently Unemployed: No Education: High School Diploma/GED Difficulty w/ Childcare or Family Care: No Living arrangements: with family Occupation/Education: retired Gender identity (if verbalized by the patient): Male Sexual Orientation (if Verbalized by the Patient): Straight or Heterosexual Spiritual care concerns: No Meds Home Medications and Allergies Home Medications ?Medication ?Instructions ?Recorded ?Confirmed ?Type aspirin 81 mg chewable tablet 81 mg PO DAILY 07/20/23 10/30/24 History calcium carb-vitamin D3 ER 600 mg 1 tablet PO QPM 07/20/23 10/30/24 History (1,500 mg)-500 unit tablet,ER 24 hr calcium carb-vitamin D3 ER 600 mg 1,200 tablet PO DAILY 07/20/23 10/30/24 History (1,500 mg)-500 unit tablet,ER 24 hr clopidogrel 75 mg tablet 75 mg PO DAILY 07/20/23 10/30/24 History empagliflozin 25 mg tablet 25 mg PO DAILY 07/20/23 10/30/24 History melatonin 10 mg tablet 10 mg PO HS PRN Sleep 07/20/23 10/30/24 History metoprolol tartrate 50 mg tablet 50 mg PO BID 07/20/23 10/30/24 History multivitamin with minerals-folic 1 tablet PO DAILY 07/20/23 10/30/24 History acid 80 mcg chewable tablet (Centrum Adult 50 Plus) pantoprazole 40 mg tablet,delayed 40 mg PO QAM 07/20/23 10/30/24 History release simvastatin 5 mg tablet 5 mg PO DAILY 07/20/23 10/30/24 History tamsulosin 0.4 mg capsule 0.4 mg PO DAILY 07/20/23 10/30/24 History sitagliptin 100 mg tablet 100 mg PO DAILY 10/30/24 10/30/24 History Allergies Allergy/AdvReac Type Severity Reaction Status Date / Time No Known Allergies Allergy Verified 10/30/24 08:51 Vital Signs Vital Signs - 24 hr 10/30/24 08:38 10/30/24 08:40 10/30/24 09:01 Temperature 98.4 F Pulse Rate 66 64 63 Respiratory Rate 23 H 18 20 Blood Pressure 119/54 L 119/54 L 98/56 L Pulse Oximetry 100 100 Oxygen Delivery Room Air 10/30/24 10:02 10/30/24 10:03 10/30/24 10:46 Temperature Pulse Rate 63 63 64 Respiratory Rate 18 19 20 Blood Pressure 105/56 L 105/56 L 107/50 L Pulse Oximetry 100 100 100 Oxygen Delivery 10/30/24 11:01 10/30/24 11:16 10/30/24 11:31 Temperature Pulse Rate 63 65 65 Respiratory Rate 19 20 17 Blood Pressure 102/49 L 103/50 L 102/50 L Pulse Oximetry 100 Oxygen Delivery 10/30/24 11:46 10/30/24 13:58 10/30/24 14:47 Temperature 97.5 F L Pulse Rate 66 63 62 Respiratory Rate 19 18 20 Blood Pressure 102/47 L 101/46 L Pulse Oximetry 98 100 Oxygen Delivery Room Air 10/30/24 14:47 10/30/24 15:17 10/30/24 16:00 Temperature Pulse Rate 62 77 Respiratory Rate 20 Blood Pressure Pulse Oximetry Oxygen Delivery Room Air 10/30/24 20:44 10/30/24 20:45 10/30/24 20:54 Temperature Pulse Rate 57 L 57 L 60 Respiratory Rate 20 20 Blood Pressure Pulse Oximetry 96 Oxygen Delivery Room Air 10/30/24 21:04 10/30/24 21:05 Temperature Pulse Rate 64 57 L Respiratory Rate Blood Pressure Pulse Oximetry 96 Oxygen Delivery CPAP Exam Narrative: General: well appearing, appears stated age. HEENT: normocephalic, atraumatic. Mucous membranes moist. EOMI, PERRLA, bilateral sclera anicteric, no conjunctival injection. Neck supple without JVD, lymphadenopathy, or bruit. Respiratory: clear to ascultation bilaterally. No rales/rhonic/wheezes. Cardiovascular: Regular rate and rhythm, normal S1-S2 upon ascultation. No murmurs, rubs, or clicks. PMI is nondisplaced, capillary refill less than 3 second. Abdomen: Soft, round, no pulsatile masses, nondistended and nontender. No rebound, no guarding. No CVA tenderness, no hepatosplenomegaly. Bowel sounds present to all four quadrants. No high pitch or tinkling sounds, resonant to percussion. Extremities: No cyanosis, clubbing, or edema present. Pulses are palpable 2/2. Active ROM to all four extremities. Neuro: Alert and orientated x 4. PERRLA. Cranial nerves 2-12 intact without focal deficit. Skin: Warm, dry, and intact, without rash, erythema, or lesion. Psych: pleasant, cooperative, normal speech, normal affect, no hallucinations, no dysarthia H&P: Results Labs Labs: Short CBC 10/30/24 Range/Units 08:44 WBC 3.0 L (4.5-10.0) K/mm3 Hgb 13.9 L (14.0-18.0) g/dL Hct 41.5 L (42.0-52.0) % Plt Count 188 (150-375) k/mm3 BMP 10/30/24 10/30/24 08:44 08:45 Sodium 128 L 127 L Potassium 3.0 L 3.1 L Chloride 99 98 Carbon Dioxide 16 L 16 L BUN 23 H D 23 H Creatinine 0.97 1.02 Glucose 212 H 211 H Calcium 8.4 8.6 Cardiac Enzymes 10/30/24 Range/Units 10:26 Total Creatine Kinase 256 H (55-170) U/L Liver Function 10/30/24 Range/Units 08:44 Total Bilirubin 0.6 (0.2-1.3) mg/dL AST 33 (17-59) U/L ALT 42 (6-50) U/L Alkaline Phosphatase 87 (38-126) U/L Albumin 3.6 (3.5-5.1) g/dL Urine 10/30/24 Range/Units 09:37 Urine Color Dark yellow (Yellow) Urine Appearance Clear (Clear) Urine pH 5.5 (5.0-9.0) Ur Specific [place] 1.031 (1.001-1.035) Urine Protein 1+ H (Negative) mg/dL Urine Glucose (UA) 3+ H (Negative) mg/dL Assessment and Plan Assessment and plan (1) Pneumonia: Code(s): J18.9 - Pneumonia, unspecified organism Status: Acute Assessment and Plan: IV Rocephin and azithromycin Guaifenesin DuoNebs Blood cultures pending (2) Acute hypokalemia: Code(s): E87.6 - Hypokalemia Status: Acute Assessment and Plan: Replete as needed BMP in the morning (3) Acute hyponatremia: Code(s): E87.1 - Hypo-osmolality and hyponatremia Status: Acute Assessment and Plan: Fluid bolus and IVF Repeat BMP in the morning (4) Diabetes: Code(s): E11.9 - Type 2 diabetes mellitus without complications Status: Acute Assessment and Plan: Continue Jardiance Accu-Domi a.cJagdeep HS SSI (5) CAD (coronary artery disease): Code(s): I25.10 - Atherosclerotic heart disease of [place] coronary artery without angina pectoris Status: Acute Assessment and Plan: Continue aspirin, metoprolol, Jardiance, Zocor and Plavix (6) BPH (benign prostatic hyperplasia): Code(s): N40.0 - Benign prostatic hyperplasia without lower urinary tract symptoms Status: Acute Assessment and Plan: Continue Flomax (7) KATARINA (obstructive sleep apnea): Code(s): G47.33 - Obstructive sleep apnea (adult) (pediatric) Status: Acute Assessment and Plan: Home CPAP Quality VTE Prophylaxis VTE prophylaxis: mechanical ordered and pharmacologic ordered Hospitalist [facility] Advance Care Plan I have confirmed that the patient's Advanced Care Plan is present, code status is documented, or surrogate decision maker is listed in patient medical record.: Yes Medication Reconciliation I have utilized all available resources to obtain, update and review the patients current medications (includes all prescriptions, OTC, herbals, cannabis, and nutritional supplements).: Yes
[2024-10-31] VITALS (19 sets, daily range): BP systolic 113–125; BP diastolic 49–64; PULSE 56–87; RESP 16–18; TEMP 36.5–36.9; O2SAT 95–100
[2024-10-31] MEDS: IPRATROPIUM 0.5 MG/ALBUTEROL SULFATE 2.5 MG AMPUL.NEB 3 ML INHALATION ×4 (02:22→21:05)
[2024-10-31 06:15] LABS: Hematocrit 34.7 % (42.0-52.0); Hemoglobin 11.5 g/dL (14.0-18.0); Immature Granulocyte Percent A 0.3 % (0-0.5); Lymphocytes Absolute Auto 0.46 K/mm3 (0.9-3.2); Mean Corpuscular HGB Conc 33.1 g/dl (32-36); Mean Corpuscular Hemoglobin 28.6 pg (26-34); Mean Corpuscular Volume 86.3 fl (80-100); Nucleated Red Blood Cells Absolute Auto 0.000 K/mm3 (0.0-0.012); Nucleated Red Blood Cells Perc 0.0 % (0.0-0.2); Platelet Count Result 145 k/mm3 (150-375); Red Blood Count 4.02 M/mm3 (4.6-6.20); White Blood Count 3.6 K/mm3 (4.5-10.0)
[2024-10-31 06:47] LABS: Anion Gap 9 mmol/L (4-12); Blood Urea Nitrogen 18 mg/dL (9-20); Calcium 7.5 mg/dL (8.4-10.2); Carbon Dioxide 18 mmol/L (22-30); Chloride 105 mmol/L (98-107); Estimated CRCL calculation 52 ml/min; Estimated Glomerular Filt Rate > 60; Glucose 119 mg/dL (65-110); Potassium 2.1 mmol/L (3.4-5.0); Sodium 132 mmol/L (137-145)
[2024-10-31 07:23] LABS: Magnesium 1.8 mg/dL (1.6-2.3)
[2024-10-31] MEDS: WATER FOR IRRIGATION, STERILE 500 ML BOTTLE (08:00)
[2024-10-31 08:08] LABS: Toxigenic C. Diff NEGATIVE (NEGATIVE)
[2024-10-31] MEDS: SODIUM CHLORIDE 0.9% IV 1,000 ML 125 ML IV CONT ×2 (08:15→21:23)
[2024-10-31] MEDS: POTASSIUM CHLORIDE INJ 40 MEQ in SODIUM CHLORIDE 0.9% IV 500 ML 130 MEQ IVPB (08:22)
[2024-10-31] MEDS: CALCIUM GLUC 1,000 MG/NS 50 ML 1,000 MG/50 ML BAG 100 MG IVPB ×2 (08:23→22:29)
[2024-10-31] MEDS: POTASSIUM CHLORIDE 20 MEQ ER TABLET 40 MEQ PO (08:23)
[2024-10-31] MEDS: CLOPIDOGREL BISULFATE 75 MG TABLET PO (08:24)
[2024-10-31] MEDS: ASPIRIN 81 MG CHEWABLE TABLET PO (08:24)
[2024-10-31] MEDS: POTASSIUM CHLORIDE 10 MEQ ER TABLET PO (08:24)
[2024-10-31] MEDS: METOPROLOL TARTRATE 50 MG TAB PO ×2 (08:24→21:54)
[2024-10-31] MEDS: guaiFENesin 12 HR 600 MG TABCR 1200 MG PO ×2 (08:24→21:54)
[2024-10-31] MEDS: TAMSULOSIN HCL 0.4 MG CAPSULE PO (08:25)
[2024-10-31] MEDS: EMPAGLIFLOZIN 25 MG TABLET PO (08:25)
[2024-10-31] MEDS: ENOXAPARIN 40 MG/0.4 ML SYRINGE SUB-Q (08:27)
[2024-10-31] MEDS: cefTRIAXone 1 GM in SODIUM CHLORIDE 0.9% IV 50 ML 100 ML IVPB (09:28)
[2024-10-31 12:01] LABS: Anion Gap 12 mmol/L (4-12); Blood Urea Nitrogen 16 mg/dL (9-20); Calcium 8.1 mg/dL (8.4-10.2); Carbon Dioxide 18 mmol/L (22-30); Chloride 107 mmol/L (98-107); Estimated CRCL calculation 52 ml/min; Estimated Glomerular Filt Rate > 60; Glucose 146 mg/dL (65-110); Magnesium 2.0 mg/dL (1.6-2.3); Potassium 2.6 mmol/L (3.4-5.0); Sodium 137 mmol/L (137-145)
[2024-10-31] MEDS: AZITHROMYCIN IV 500 MG in SODIUM CHLORIDE 0.9% IV 250 ML IVPB (12:09)
[2024-10-31 14:39] LABS: Potassium 3.0 mmol/L (3.4-5.0)
--- NOTE | 2024-10-31 17:16 | P.PNIM_ITS ---
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 Status: Acute Assessment and Plan: Continue Jardiance Accu-Domi a.cJagdeep HS SSI (5) CAD (coronary artery disease): Code(s): I25.10 - Atherosclerotic heart disease of [place] coronary artery without angina pectoris Status: Acute Assessment and Plan: Continue aspirin, metoprolol, Jardiance, Zocor and Plavix (6) BPH (benign prostatic hyperplasia): Code(s): N40.0 - Benign prostatic hyperplasia without lower urinary tract symptoms Status: Acute Assessment and Plan: Continue Flomax (7) KATARINA (obstructive sleep apnea): Code(s): G47.33 - Obstructive sleep apnea (adult) (pediatric) Status: Acute Assessment and Plan: Home CPAP Plan patient with generalized weakness etiology uncertain however does have mild pancytopenia, his potassium is significantly low, which are being repleted and monitor, suspect his weakness may be related to his mild pancytopenia, will consult explosive ordnance disposal technician for further recommendation. will monitor and plan. Subjective Date/time seen: 10/31/24 17:16 Interval history: Weakness H&P-Narrative: 89-year-old male past medical history of hypertension, CAD and diabetes who presents the hospital with complaints of weakness and fatigue for the last 2-3 days. Patient states for the last several days so very tired and sleeping most of the days. Which is unlike him. He has narrow complaints of malaise. He denies nausea vomiting fever chills. Patient states that sometimes he has trouble swallowing food however he denies weight loss. Lab work shows leukopenia at 3.0, hemoglobin of 13.9, platelets of 188, sodium of 129, potassium of 3.0, carbon dioxide 16, anion gap of 13, BUN of 23, creatinine 0.97, glucose of 212, CK of 256, UA is not infective. Chest x-ray shows mild vascular congestion. With possible infection. Head CT shows no acute process. patient with generalized weakness etiology uncertain however does have mild pancytopenia, his potassium is significantly low, which are being repleted and monitor, suspect his weakness may be related to his mild pancytopenia, will consult explosive ordnance disposal technician for further recommendation. will monitor and plan. Review of Systems Review of Systems: 12 systems were reviewed and are negativ e except for as per HPI. ROS unobtainable: Yes unobtainable due to mental status Exam Narrative: Elderly frail Patient is comfortable, NAD HEENT: eyes are clear and none icteric LUNGS:CTA HEART: RR S1S2 ABD: BS+, Soft and nontender Lower extremities: no edema SKIN: nonjaundiced Neuro: grossly intact. Objective Data Vital Signs Vital Signs: Vital Signs - 24 hr 10/30/24 20:00 10/30/24 20:44 10/30/24 20:45 Temperature Pulse Rate 67 57 L 57 L Respiratory Rate 20 Blood Pressure Pulse Oximetry 96 Oxygen Delivery Room Air 10/30/24 20:54 10/30/24 21:04 10/30/24 21:04 Temperature Pulse Rate 60 64 Respiratory Rate 20 Blood Pressure Pulse Oximetry 95 Oxygen Delivery CPAP 10/30/24 21:05 10/30/24 22:00 10/31/24 00:05 Temperature 36.7 C Pulse Rate 57 L 68 87 Respiratory Rate 18 Blood Pressure 113/61 Pulse Oximetry 96 95 Oxygen Delivery CPAP 10/31/24 02:22 10/31/24 02:22 10/31/24 04:00 Temperature Pulse Rate 63 63 63 Respiratory Rate 18 Blood Pressure Pulse Oximetry 95 Oxygen Delivery CPAP 10/31/24 06:00 10/31/24 08:00 10/31/24 08:48 Temperature 36.9 C Pulse Rate 66 56 L Respiratory Rate 17 16 Blood Pressure 118/64 Pulse Oximetry 95 Oxygen Delivery Room Air 10/31/24 08:51 10/31/24 08:56 10/31/24 10:26 Temperature Pulse Rate 60 Respiratory Rate 16 Blood Pressure Pulse Oximetry 96 Oxygen Delivery Room Air Room Air 10/31/24 13:28 10/31/24 13:35 Temperature Pulse Rate 62 60 Respiratory Rate 16 16 Blood Pressure Pulse Oximetry Oxygen Delivery Intake/Output Intake/Output: Intake & Output 10/28/24 10/29/24 10/30/24 10/31/24 23:59 23:59 23:59 23:59 Intake Total 2290 1790 Balance 2290 1790 Meds/Results Medications: Active Medications Generic Name Dose Route Start Last Admin Trade Name Freq PRN Reason Stop Dose Admin Acetaminophen 650 mg 10/30/24 13:30 Acetaminophen 325 Mg Tablet PO Q4H PRN Mild Pain (1-3) or Fever Albuterol/Ipratropium 3 ml 10/30/24 14:00 10/31/24 13:28 Ipratropium 0.5 Mg/Albuterol Sulfate 2.5 Mg Ampul.Neb 3 Ml INHALATION 3 ml Q6HRT MONISHA Administration Aspirin 81 mg 10/31/24 09:00 10/31/24 08:24 Aspirin 81 Mg Chewable Tablet PO 81 mg DAILY MONISHA Administration Clopidogrel Bisulfate 75 mg 10/31/24 09:00 10/31/24 08:24 Clopidogrel Bisulfate 75 Mg Tablet PO 75 mg DAILY MONISHA Administration Dextrose 12.5 gm 10/30/24 13:35 Dextrose 50% 25 Gm/50 Ml Syringe IV PUSH PRN PRN Hypoglycemia Protocol Docusate Sodium 100 mg 10/31/24 09:00 10/31/24 08:24 Docusate Sodium 100 Mg Capsule PO Not Given DAILY MONISHA Empagliflozin 25 mg 10/31/24 09:00 10/31/24 08:25 Empagliflozin 25 Mg Tablet PO 25 mg DAILY MONISHA Administration Enoxaparin Sodium 40 mg 10/31/24 09:00 10/31/24 08:27 Enoxaparin 40 Mg/0.4 Ml Syringe SUB-Q 40 mg DAILY MONISHA Administration Glucagon 1 mg 10/30/24 13:35 Glucagon For Inj 1 Mg Vial IM PRN PRN Hypoglycemia Protocol Glucose 15 gm 10/30/24 13:35 Glucose Oral Gel 15 Gm Of Glucse In 37.5 Gm Tube PO PRN PRN Hypoglycemia Protocol Guaifenesin 1,200 mg 10/30/24 14:00 10/31/24 08:24 Guaifenesin 12 Hr 600 Mg Tabcr PO 1,200 mg Q12HR MONISHA Administration Sodium Chloride 1,000 mls @ 125 mls/hr 10/30/24 11:00 10/31/24 08:15 Normal Saline Iv IV CONT 125 mls/hr .Q8H MONISHA Administration Dextrose 1,000 mls @ 100 mls/hr 10/30/24 13:35 Dextrose 5% 1,000 Ml IVPB PRN PRN Hypoglycemia Protocol Ceftriaxone Sodium 1 gm/ 50 mls @ 100 mls/hr 10/31/24 09:00 10/31/24 09:28 Sodium Chloride IVPB 100 mls/hr Q24H MONISHA Administration Azithromycin 500 mg/ Sodium 250 mls @ 250 mls/hr 10/31/24 12:00 10/31/24 12:09 Chloride IVPB 250 mls/hr Q24H MONISHA Administration Insulin Aspart 2 - 5 units 10/30/24 17:00 10/31/24 12:09 Insulin Aspart (*Bkc) 100 Units/Ml SUB-Q Not Given TIDWM MONISHA Protocol Insulin Aspart 1 - 2 units 10/30/24 21:00 10/30/24 21:22 Insulin Aspart (*Bkc) 100 Units/Ml SUB-Q Not Given HS MONISHA Protocol Melatonin 10 mg 10/30/24 13:32 Melatonin 5 Mg Tablet PO HS PRN Sleep Metoprolol Tartrate 50 mg 10/30/24 21:00 10/31/24 08:24 Metoprolol Tartrate 50 Mg Tab PO 50 mg Q12HR MONISHA Administration Potassium Chloride 10 meq 10/31/24 09:00 10/31/24 08:24 Potassium Chloride 10 Meq Er Tablet PO 10 meq DAILY MONISHA Administration Simvastatin 5 mg 10/30/24 21:00 10/30/24 21:04 Simvastatin 5 Mg Tablet PO 5 mg HS MONISHA Administration Tamsulosin HCl 0.4 mg 10/31/24 09:00 10/31/24 08:25 Tamsulosin Hcl 0.4 Mg Capsule PO 0.4 mg DAILY MONISHA Administration Radiology Results: ITS Impressions Chest X-Ray 10/30/24 09:57 IMPRESSION: Mild vascular congestion. Increased interstitial markings. Superimposed infection cannot be excluded. Clinical correlation is recommended. Short-term follow-up chest radiograph is recommended after appropriate clinical therapy. Head CT 10/30/24 10:05 IMPRESSION: No evidence for acute intracranial hemorrhage or calvarial fracture. Labs Labs: Laboratory Results - last 24 hr 10/30/24 10/30/24 10/31/24 18:32 20:22 06:06 WBC 3.6 L RBC 4.02 L Hgb 11.5 L Hct 34.7 L MCV 86.3 MCH 28.6 MCHC 33.1 RDW 14.6 H Plt Count 145 L MPV 9.8 Immature Gran % (Auto) 0.3 Neut % (Auto) 75.6 H Lymph % (Auto) 12.9 L [place] % (Auto) 10.6 H Eos % (Auto) 0.3 Baso % (Auto) 0.3 Lymph # (Auto) 0.46 L [place] # (Auto) 0.4 Eos # (Auto) 0.0 Baso # (Auto) 0.0 Abs Immat Gran (auto) 0.01 Absolute Neuts (auto) 2.7 Absolute Nucleated RBC 0.000 Nucleated RBC % 0.0 Sodium 132 L Potassium 2.1 L* Chloride 105 Carbon Dioxide 18 L Anion Gap 9 BUN 18 Creatinine 0.81 Estim Creat Clear Calc 52 Estimated GFR > 60 Glucose 119 H POC Capillary Glucose 156 H 152 H Calcium 7.5 L Phosphorus 2.6 Magnesium 1.8 C. difficile (PCR) 10/31/24 10/31/24 10/31/24 06:50 07:56 11:18 WBC RBC Hgb Hct MCV MCH MCHC RDW Plt Count MPV Immature Gran % (Auto) Neut % (Auto) Lymph % (Auto) [place] % (Auto) Eos % (Auto) Baso % (Auto) Lymph # (Auto) [place] # (Auto) Eos # (Auto) Baso # (Auto) Abs Immat Gran (auto) Absolute Neuts (auto) Absolute Nucleated RBC Nucleated RBC % Sodium 137 Potassium 2.6 L* Chloride 107 Carbon Dioxide 18 L Anion Gap 12 BUN 16 Creatinine 0.81 Estim Creat Clear Calc 52 Estimated GFR > 60 Glucose 146 H POC Capillary Glucose 120 H Calcium 8.1 L Phosphorus Magnesium 2.0 C. difficile (PCR) Negative 10/31/24 10/31/24 10/31/24 11:18 11:39 14:14 WBC RBC Hgb Hct MCV MCH MCHC RDW Plt Count MPV Immature Gran % (Auto) Neut % (Auto) Lymph % (Auto) [place] % (Auto) Eos % (Auto) Baso % (Auto) Lymph # (Auto) [place] # (Auto) Eos # (Auto) Baso # (Auto) Abs Immat Gran (auto) Absolute Neuts (auto) Absolute Nucleated RBC Nucleated RBC % Sodium Potassium 3.0 L Chloride Carbon Dioxide Anion Gap BUN Creatinine Estim Creat Clear Calc Estimated GFR Glucose POC Capillary Glucose 142 H Calcium Phosphorus Magnesium Cancelled C. difficile (PCR) Quality VTE Prophylaxis VTE prophylaxis: mechanical ordered and pharmacologic ordered
[2024-10-31] MEDS: POTASSIUM CHLORIDE 20 MEQ PACKET (FOR LIQUID) 40 MEQ PO (17:49)
--- NOTE | 2024-10-31 20:28 | ECG_ITS ---
Test Date: 2024-10-31 20:44:04 Measurements Intervals [place] Rate: 58 P: 151 MT: 159 QRS: -78 QRSD: 157 T: 78 QT: 467 QTc: 462 Interpretive Statements ELECTRONIC ATRIAL PACEMAKER RIGHT BUNDLE BRANCH BLOCK [120+ ms QRS DURATION, UPRIGHT V1, 40+ ms S IN I/aVL/V4/V5/V6] LEFT ANTERIOR FASCICULAR BLOCK [QRS AXIS <= -45, QR IN I, RS IN II] PROBABLE SEPTAL MYOCARDIAL INFARCTION , PROBABLY OLD [35 ms Q WAVE IN V1/V2] Compared to ECG 10/30/2024 08:42:06 Sinus rhythm no longer present Myocardial infarct finding still present Electronically Signed On 11-02-2024 18:23:14 CDT by Ramses An M.D.
[2024-10-31] MEDS: SIMVASTATIN 5 MG TABLET PO (21:54)
[2024-10-31] MEDS: LOPERAMIDE HCL 2 MG CAPSULE 4 MG PO (23:49)
[2024-11-01] VITALS (20 sets, daily range): BP systolic 106–122; BP diastolic 51–63; PULSE 59–69; RESP 16–19; TEMP 36.6–36.9; O2SAT 97–99
[2024-11-01] MEDS: IPRATROPIUM 0.5 MG/ALBUTEROL SULFATE 2.5 MG AMPUL.NEB 3 ML INHALATION ×4 (03:10→20:10)
[2024-11-01 06:18] LABS: Hematocrit 34.0 % (42.0-52.0); Hemoglobin 11.0 g/dL (14.0-18.0); Mean Corpuscular HGB Conc 32.4 g/dl (32-36); Mean Corpuscular Hemoglobin 28.4 pg (26-34); Mean Corpuscular Volume 87.6 fl (80-100); Platelet Count Result 161 k/mm3 (150-375); Red Blood Count 3.88 M/mm3 (4.6-6.20); White Blood Count 3.4 K/mm3 (4.5-10.0)
[2024-11-01] MEDS: SODIUM CHLORIDE 0.9% IV 1,000 ML 125 ML IV CONT ×2 (06:51→17:21)
[2024-11-01 07:01] LABS: Albumin Level 2.4 g/dL (3.5-5.1); Anion Gap 9 mmol/L (4-12); Blood Urea Nitrogen 11 mg/dL (9-20); Calcium 7.8 mg/dL (8.4-10.2); Carbon Dioxide 15 mmol/L (22-30); Chloride 114 mmol/L (98-107); Estimated CRCL calculation 58 ml/min; Estimated Glomerular Filt Rate > 60; Glucose 136 mg/dL (65-110); Magnesium 1.8 mg/dL (1.6-2.3); Potassium 2.5 mmol/L (3.4-5.0); Sodium 138 mmol/L (137-145)
[2024-11-01] MEDS: POTASSIUM CHLORIDE INJ 40 MEQ in SODIUM CHLORIDE 0.9% IV 500 ML 130 MEQ IVPB (08:27)
[2024-11-01] MEDS: POTASSIUM CHLORIDE 20 MEQ PACKET (FOR LIQUID) 40 MEQ PO (08:27)
[2024-11-01] MEDS: ASPIRIN 81 MG CHEWABLE TABLET PO (08:44)
[2024-11-01] MEDS: cefTRIAXone 1 GM in SODIUM CHLORIDE 0.9% IV 50 ML 100 ML IVPB (08:44)
[2024-11-01] MEDS: CLOPIDOGREL BISULFATE 75 MG TABLET PO (08:44)
[2024-11-01] MEDS: ENOXAPARIN 40 MG/0.4 ML SYRINGE SUB-Q (08:45)
[2024-11-01] MEDS: guaiFENesin 12 HR 600 MG TABCR 1200 MG PO ×2 (08:45→20:50)
[2024-11-01] MEDS: TAMSULOSIN HCL 0.4 MG CAPSULE PO (08:45)
[2024-11-01] MEDS: EMPAGLIFLOZIN 25 MG TABLET PO (08:45)
[2024-11-01] MEDS: METOPROLOL TARTRATE 50 MG TAB PO ×2 (08:45→20:50)
[2024-11-01] MEDS: POTASSIUM CHLORIDE 10 MEQ ER TABLET PO (08:45)
[2024-11-01] MEDS: AZITHROMYCIN IV 500 MG in SODIUM CHLORIDE 0.9% IV 250 ML IVPB (13:00)
--- NOTE | 2024-11-01 13:56 | P.CONONC_ITS ---
Assessment and Plan Assessment and plan (1) Pancytopenia: Code(s): D61.818 - Other pancytopenia Status: Acute Plan This is a pleasant 89-year-old male with history of coronary artery disease, diabetes and hypertension admitted to the hospital with generalized tiredness and fatigue. He denies any previous history of malignancy. Denies any history of liver disease. Denies any night sweats fever chills and weight loss. He was diagnosed with pneumonia and was started on Rocephin and azithromycin. Labs showed mild pancytopenia. This could be due to the recent infection as well. I will order the workup for pancytopenia including iron profile, vitamin B12 and folic acid level and REBECCA. Will order the abdominal ultrasound. I do not see need for bone marrow biopsy testing at this time. Patient was provided with information to follow-up in the office for further monitoring of his blood counts. I have answered all the questions the patient and the satisfaction. HPI Data of Consult Date/Time: 11/01/24 13:56 Requesting Physician: Pedro Luis Awad MD Primary Care Provider: Josie Price MD Consult Narrative Narrative: Dilip Aldana is a 89 year old male with history of coronary artery disease, hypertension and diabetes admitted to the hospital with generalized tiredness and fatigue for 2-3 days duration. Patient denies any history of malignancy. Denies any history of liver disease. Labs showed WBC count of 3.0, hemoglobin 11 and platelet of [id number]. Patient previous CT scan from July 2023 showed small bowel obstruction without any evidence of hepatosplenomegaly. He denies any night sweats fevers and chills. Denies any weight loss. Patient was diagnosed with pneumonia and was started on Rocephin and azithromycin. Denies any other complaints. Review of Systems 2 Review of Systems: Twelve point review of system was reviewed FORMERLY [facility], [facility] Past Medical History Medical History History of small bowel obstruction HTN (hypertension) CAD (coronary artery disease) Diabetes Surgical History Surgical History History of cholecystectomy Family History Family History Father Heart disease Diabetes mellitus Sibling Heart disease Diabetes mellitus Son Diabetes mellitus Social History Social History Smoking status: Never smoker Second hand tobacco smoke exposure: No Alcohol intake: former Substance use: never Substance use type: does not use Do You Feel Safe in your Home?: Yes Lack of Transportation: No Lack of Food: Never True Current Housing: I Have Housing Concerned About Future Housing: No Difficulty Paying Gas/Electric Bills: No Difficulty Paying for Meds: No Currently Unemployed: No Education: High School Diploma/GED Difficulty w/ Childcare or Family Care: No Living arrangements: with family Occupation/Education: retired Gender identity (if verbalized by the patient): Male Sexual Orientation (if Verbalized by the Patient): Straight or Heterosexual Spiritual care concerns: No Meds Home Medications and Allergies Home Medications ?Medication ?Instructions ?Recorded ?Confirmed ?Type aspirin 81 mg chewable tablet 81 mg PO DAILY 07/20/23 10/30/24 History calcium carb-vitamin D3 ER 600 mg 1 tablet PO QPM 07/20/23 10/30/24 History (1,500 mg)-500 unit tablet,ER 24 hr calcium carb-vitamin D3 ER 600 mg 1,200 tablet PO DAILY 07/20/23 10/30/24 History (1,500 mg)-500 unit tablet,ER 24 hr clopidogrel 75 mg tablet 75 mg PO DAILY 07/20/23 10/30/24 History empagliflozin 25 mg tablet 25 mg PO DAILY 07/20/23 10/30/24 History melatonin 10 mg tablet 10 mg PO HS PRN Sleep 07/20/23 10/30/24 History metoprolol tartrate 50 mg tablet 50 mg PO BID 07/20/23 10/30/24 History multivitamin with minerals-folic 1 tablet PO DAILY 07/20/23 10/30/24 History acid 80 mcg chewable tablet (Centrum Adult 50 Plus) pantoprazole 40 mg tablet,delayed 40 mg PO QAM 07/20/23 10/30/24 History release simvastatin 5 mg tablet 5 mg PO DAILY 07/20/23 10/30/24 History tamsulosin 0.4 mg capsule 0.4 mg PO DAILY 07/20/23 10/30/24 History sitagliptin 100 mg tablet 100 mg PO DAILY 10/30/24 10/30/24 History Allergies Allergy/AdvReac Type Severity Reaction Status Date / Time No Known Allergies Allergy Verified 10/30/24 08:51 Vital Signs Vital Signs - 24 hr 10/31/24 14:00 10/31/24 16:00 10/31/24 20:22 Temperature 36.5 C Pulse Rate 66 67 68 Respiratory Rate 18 Blood Pressure 113/49 L Pulse Oximetry 100 Oxygen Delivery 10/31/24 21:05 10/31/24 21:15 10/31/24 21:15 Temperature Pulse Rate 60 60 60 Respiratory Rate 16 16 16 Blood Pressure Pulse Oximetry 97 Oxygen Delivery Room Air 10/31/24 21:51 10/31/24 21:54 10/31/24 22:00 Temperature 36.6 C Pulse Rate 60 59 L Respiratory Rate 18 Blood Pressure 125/54 L Pulse Oximetry 100 100 Oxygen Delivery Room Air 10/31/24 23:00 11/01/24 00:04 11/01/24 03:10 Temperature Pulse Rate 69 59 L Respiratory Rate 16 Blood Pressure Pulse Oximetry Oxygen Delivery CPAP 11/01/24 03:17 11/01/24 04:01 11/01/24 06:00 Temperature 36.6 C Pulse Rate 60 60 62 Respiratory Rate 16 19 Blood Pressure 122/63 Pulse Oximetry 99 Oxygen Delivery 11/01/24 08:58 11/01/24 08:58 11/01/24 09:04 Temperature Pulse Rate 59 L 59 L 60 Respiratory Rate 17 17 Blood Pressure Pulse Oximetry 97 Oxygen Delivery Room Air 11/01/24 09:34 Temperature Pulse Rate Respiratory Rate Blood Pressure Pulse Oximetry Oxygen Delivery Room Air Exam 2 Narrative: Lungs are clear to auscultation bilaterally Cardiovascular regular rate rhythm no murmurs Abdomen soft nontender, distended bowel sounds are positive Extremities no edema Results Labs 11/01/24 06:12 11/01/24 06:12 Labs: Short CBC 11/01/24 Range/Units 06:12 WBC 3.4 L (4.5-10.0) K/mm3 Hgb 11.0 L (14.0-18.0) g/dL Hct 34.0 L (42.0-52.0) % Plt Count 161 (150-375) k/mm3 BMP 10/31/24 11/01/24 14:14 06:12 Sodium 138 Potassium 3.0 L 2.5 L* Chloride 114 H Carbon Dioxide 15 L BUN 11 D Creatinine 0.73 Glucose 136 H Calcium 7.8 L Liver Function 11/01/ Range/Units 06:12 Albumin 2.4 L (3.5-5.1) g/dL
[2024-11-01 15:30] LABS: Iron 38 ug/dL (49-181)
[2024-11-01 15:39] LABS: Percent Iron Saturation 17 % (20-50)
[2024-11-01 16:05] LABS: Ferritin 116.00 ng/mL (11.1-264)
[2024-11-01 16:31] LABS: Vitamin B12 941.0 pg/mL (239-931)
--- NOTE | 2024-11-01 16:53 | P.PNIM_ITS ---
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 Status: Acute Assessment and Plan: Continue Jardiance Accu-Domi a.cJagdeep HS SSI (5) CAD (coronary artery disease): Code(s): I25.10 - Atherosclerotic heart disease of [place] coronary artery without angina pectoris Status: Acute Assessment and Plan: Continue aspirin, metoprolol, Jardiance, Zocor and Plavix (6) BPH (benign prostatic hyperplasia): Code(s): N40.0 - Benign prostatic hyperplasia without lower urinary tract symptoms Status: Acute Assessment and Plan: Continue Flomax (7) KATARINA (obstructive sleep apnea): Code(s): G47.33 - Obstructive sleep apnea (adult) (pediatric) Status: Acute Assessment and Plan: Home CPAP Plan patient with generalized weakness etiology uncertain however does have mild pancytopenia, his potassium is significantly low, most likely to diarrhea, which are being repleted and monitor, suspect his weakness may be related to his mild pancytopenia, will consult tourist camp attendant for further recommendation. patient is on abx for suspected pneumonia, will monitor and plan. Subjective Date/time seen: 11/01/24 16:53 Interval history: Weakness H&P-Narrative: 89-year-old male past medical history of hypertension, CAD and diabetes who presents the hospital with complaints of weakness and fatigue for the last 2-3 days. Patient states for the last several days so very tired and sleeping most of the days. Which is unlike him. He has narrow complaints of malaise. He denies nausea vomiting fever chills. Patient states that sometimes he has trouble swallowing food however he denies weight loss. Lab work shows leukopenia at 3.0, hemoglobin of 13.9, platelets of 188, sodium of 129, potassium of 3.0, carbon dioxide 16, anion gap of 13, BUN of 23, creatinine 0.97, glucose of 212, CK of 256, UA is not infective. Chest x-ray shows mild vascular congestion. With possible infection. Head CT shows no acute process. patient with generalized weakness etiology uncertain however does have mild pancytopenia, his potassium is significantly low, most likely to diarrhea, which are being repleted and monitor, suspect his weakness may be related to his mild pancytopenia, will consult tourist camp attendant for further recommendation. patient is on abx for suspected pneumonia, will monitor and plan. Review of Systems Review of Systems: 12 systems were reviewed and are negativ e except for as per HPI. ROS unobtainable: Yes unobtainable due to mental status Exam Narrative: Elderly frail Patient is comfortable, NAD HEENT: eyes are clear and none icteric LUNGS:CTA HEART: RR S1S2 ABD: BS+, Soft and nontender Lower extremities: no edema SKIN: nonjaundiced Neuro: grossly intact. Objective Data Vital Signs Vital Signs: Vital Signs - 24 hr 10/31/24 20:22 10/31/24 21:05 10/31/24 21:15 Temperature Pulse Rate 68 60 60 Respiratory Rate 16 16 Blood Pressure Pulse Oximetry 97 Oxygen Delivery Room Air 10/31/24 21:15 10/31/24 21:51 10/31/24 21:54 Temperature Pulse Rate 60 60 Respiratory Rate 16 Blood Pressure Pulse Oximetry 100 Oxygen Delivery Room Air 10/31/24 22:00 10/31/24 23:00 11/01/24 00:04 Temperature 36.6 C Pulse Rate 59 L 69 Respiratory Rate 18 Blood Pressure 125/54 L Pulse Oximetry 100 Oxygen Delivery CPAP 11/01/24 03:10 11/01/24 03:17 11/01/24 04:01 Temperature Pulse Rate 59 L 60 60 Respiratory Rate 16 16 Blood Pressure Pulse Oximetry Oxygen Delivery 11/01/24 06:00 11/01/24 08:00 11/01/24 08:58 Temperature 36.6 C Pulse Rate 62 59 L Respiratory Rate 19 Blood Pressure 122/63 Pulse Oximetry 99 97 Oxygen Delivery Room Air Room Air 11/01/24 08:58 11/01/24 09:04 11/01/24 09:34 Temperature Pulse Rate 59 L 60 Respiratory Rate 17 17 Blood Pressure Pulse Oximetry Oxygen Delivery Room Air 11/01/24 14:00 11/01/24 14:13 11/01/24 14:21 Temperature 36.9 C Pulse Rate 64 60 64 Respiratory Rate 16 17 17 Blood Pressure 106/51 L Pulse Oximetry 98 Oxygen Delivery Intake/Output Intake/Output: Intake & Output 10/29/24 10/30/24 10/31/24 11/01/24 23:59 23:59 23:59 23:59 Intake Total 2290 4120 2760 Balance 2290 4120 2760 Meds/Results Medications: Active Medications Generic Name Dose Route Start Last Admin Trade Name Freq PRN Reason Stop Dose Admin Acetaminophen 650 mg 10/30/24 13:30 Acetaminophen 325 Mg Tablet PO Q4H PRN Mild Pain (1-3) or Fever Albuterol/Ipratropium 3 ml 10/30/24 14:00 11/01/24 14:12 Ipratropium 0.5 Mg/Albuterol Sulfate 2.5 Mg Ampul.Neb 3 Ml INHALATION 3 ml Q6HRT MONISHA Administration Aspirin 81 mg 10/31/24 09:00 11/01/24 08:44 Aspirin 81 Mg Chewable Tablet PO 81 mg DAILY MONISHA Administration Clopidogrel Bisulfate 75 mg 10/31/24 09:00 11/01/24 08:44 Clopidogrel Bisulfate 75 Mg Tablet PO 75 mg DAILY MONISHA Administration Dextrose 12.5 gm 10/30/24 13:35 Dextrose 50% 25 Gm/50 Ml Syringe IV PUSH PRN PRN Hypoglycemia Protocol Docusate Sodium 100 mg 10/31/24 09:00 10/31/24 08:24 Docusate Sodium 100 Mg Capsule PO Not Given DAILY MONISHA Empagliflozin 25 mg 10/31/24 09:00 11/01/24 08:45 Empagliflozin 25 Mg Tablet PO 25 mg DAILY MONISHA Administration Enoxaparin Sodium 40 mg 10/31/24 09:00 11/01/24 08:45 Enoxaparin 40 Mg/0.4 Ml Syringe SUB-Q 40 mg DAILY MONISHA Administration Glucagon 1 mg 10/30/24 13:35 Glucagon For Inj 1 Mg Vial IM PRN PRN Hypoglycemia Protocol Glucose 15 gm 10/30/24 13:35 Glucose Oral Gel 15 Gm Of Glucse In 37.5 Gm Tube PO PRN PRN Hypoglycemia Protocol Guaifenesin 1,200 mg 10/30/24 14:00 11/01/24 08:45 Guaifenesin 12 Hr 600 Mg Tabcr PO 1,200 mg Q12HR MONISHA Administration Sodium Chloride 1,000 mls @ 125 mls/hr 10/30/24 11:00 11/01/24 06:51 Normal Saline Iv IV CONT 125 mls/hr .Q8H MONISHA Administration Dextrose 1,000 mls @ 100 mls/hr 10/30/24 13:35 Dextrose 5% 1,000 Ml IVPB PRN PRN Hypoglycemia Protocol Ceftriaxone Sodium 1 gm/ 50 mls @ 100 mls/hr 10/31/24 09:00 11/01/24 08:44 Sodium Chloride IVPB 100 mls/hr Q24H MONISHA Administration Azithromycin 500 mg/ Sodium 250 mls @ 250 mls/hr 10/31/24 12:00 11/01/24 13:00 Chloride IVPB 250 mls/hr Q24H MONISHA Administration Magnesium Sulfate 2 gm in 50 mls @ 50 mls/hr 11/01/24 16:52 Magnesium Sulf 2 Gm/Water 50ml IVPB 11/01/24 17:51 ONCE ONE Insulin Aspart 2 - 5 units 10/30/24 17:00 11/01/24 12:12 Insulin Aspart (*Bkc) 100 Units/Ml SUB-Q Not Given [facility] Protocol Insulin Aspart 1 - 2 units 10/30/24 21:00 10/31/24 21:51 Insulin Aspart (*Bkc) 100 Units/Ml SUB-Q Not Given HS MONISHA Protocol Loperamide HCl 2 mg 10/31/24 23:20 Loperamide Hcl 2 Mg Capsule PO PRN PRN Diarrhea Melatonin 10 mg 10/30/24 13:32 Melatonin 5 Mg Tablet PO HS PRN Sleep Metoprolol Tartrate 50 mg 10/30/24 21:00 11/01/24 08:45 Metoprolol Tartrate 50 Mg Tab PO 50 mg Q12HR MONISHA Administration Potassium Chloride 10 meq 10/31/24 09:00 11/01/24 08:45 Potassium Chloride 10 Meq Er Tablet PO 10 meq DAILY MONISHA Administration Simvastatin 5 mg 10/30/24 21:00 10/31/24 21:54 Simvastatin 5 Mg Tablet PO 5 mg HS MONISHA Administration Tamsulosin HCl 0.4 mg 10/31/24 09:00 11/01/24 08:45 Tamsulosin Hcl 0.4 Mg Capsule PO 0.4 mg DAILY MONISHA Administration Radiology Results: ITS Impressions Chest X-Ray 10/30/24 09:57 IMPRESSION: Mild vascular congestion. Increased interstitial markings. Superimposed infection cannot be excluded. Clinical correlation is recommended. Short-term follow-up chest radiograph is recommended after appropriate clinical therapy. Head CT 10/30/24 10:05 IMPRESSION: No evidence for acute intracranial hemorrhage or calvarial fracture. Labs Labs: Laboratory Results - last 24 hr 10/31/24 10/31/24 11/01/24 17:01 21:07 06:12 WBC 3.4 L RBC 3.88 L Hgb 11.0 L Hct 34.0 L MCV 87.6 MCH 28.4 MCHC 32.4 RDW 15.0 H Plt Count 161 MPV 10.4 Sodium 138 Potassium 2.5 L* Chloride 114 H Carbon Dioxide 15 L Anion Gap 9 BUN 11 D Creatinine 0.73 Estim Creat Clear Calc 58 Estimated GFR > 60 Glucose 136 H POC Capillary Glucose 159 H 183 H Calcium 7.8 L Phosphorus 1.4 L Magnesium 1.8 Iron TIBC % Saturation Ferritin Albumin 2.4 L Vitamin B12 Folate 11/01/24 11/01/24 11/01/24 08:11 11:35 14:48 WBC RBC Hgb Hct MCV MCH MCHC RDW Plt Count MPV Sodium Potassium Chloride Carbon Dioxide Anion Gap BUN Creatinine Estim Creat Clear Calc Estimated GFR Glucose POC Capillary Glucose 139 H 150 H Calcium Phosphorus Magnesium Iron 38 L TIBC 224 L % Saturation 17 L Ferritin 116.00 Albumin Vitamin B12 941.0 H Folate 15.1 Quality VTE Prophylaxis VTE prophylaxis: mechanical ordered and pharmacologic ordered
[2024-11-01] MEDS: MAGNESIUM SULF 2 GM/WATER 50ML 2 GM/50 ML BAG IVPB (17:28)
[2024-11-01 19:38] LABS: Albumin Level 2.4 g/dL (3.5-5.1); Anion Gap 8 mmol/L (4-12); Blood Urea Nitrogen 7 mg/dL (9-20); Calcium 7.6 mg/dL (8.4-10.2); Carbon Dioxide 15 mmol/L (22-30); Chloride 115 mmol/L (98-107); Estimated CRCL calculation 62 ml/min; Estimated Glomerular Filt Rate > 60; Glucose 167 mg/dL (65-110); Potassium 3.2 mmol/L (3.4-5.0); Sodium 138 mmol/L (137-145)
[2024-11-01] MEDS: INSULIN ASPART (*BKC) 100 UNITS/ML SUB-Q (20:48)
[2024-11-01] MEDS: SIMVASTATIN 5 MG TABLET PO (20:50)
[2024-11-01] MEDS: LOPERAMIDE HCL 2 MG CAPSULE PO (20:50)
[2024-11-02] VITALS (21 sets, daily range): BP systolic 109–117; BP diastolic 54–59; PULSE 57–75; RESP 16; TEMP 36.6–36.9; O2SAT 98–100
[2024-11-02] MEDS: IPRATROPIUM 0.5 MG/ALBUTEROL SULFATE 2.5 MG AMPUL.NEB 3 ML INHALATION ×4 (01:38→22:18)
[2024-11-02] MEDS: SODIUM CHLORIDE 0.9% IV 1,000 ML 125 ML IV CONT ×2 (03:08→15:40)
[2024-11-02 06:35] LABS: Hematocrit 36.3 % (42.0-52.0); Hemoglobin 11.4 g/dL (14.0-18.0); Mean Corpuscular HGB Conc 31.4 g/dl (32-36); Mean Corpuscular Hemoglobin 28.3 pg (26-34); Mean Corpuscular Volume 90.1 fl (80-100); Platelet Count Result 183 k/mm3 (150-375); Red Blood Count 4.03 M/mm3 (4.6-6.20); White Blood Count 3.5 K/mm3 (4.5-10.0)
[2024-11-02 07:01] LABS: Albumin Level 2.5 g/dL (3.5-5.1); Anion Gap 5 mmol/L (4-12); Blood Urea Nitrogen 5 mg/dL (9-20); Calcium 7.5 mg/dL (8.4-10.2); Carbon Dioxide 15 mmol/L (22-30); Chloride 113 mmol/L (98-107); Estimated CRCL calculation 63 ml/min; Estimated Glomerular Filt Rate > 60; Glucose 148 mg/dL (65-110); Magnesium 2.3 mg/dL (1.6-2.3); Potassium 3.1 mmol/L (3.4-5.0); Sodium 133 mmol/L (137-145)
[2024-11-02] MEDS: POTASSIUM/PHOSPHORUS/SODIUM 1.5 GM PACKET 2 PACKET PO (09:16)
[2024-11-02] MEDS: guaiFENesin 12 HR 600 MG TABCR 1200 MG PO ×2 (09:16→20:48)
[2024-11-02] MEDS: ASPIRIN 81 MG CHEWABLE TABLET PO (09:16)
[2024-11-02] MEDS: CLOPIDOGREL BISULFATE 75 MG TABLET PO (09:16)
[2024-11-02] MEDS: cefTRIAXone 1 GM in SODIUM CHLORIDE 0.9% IV 50 ML 100 ML IVPB (09:17)
[2024-11-02] MEDS: TAMSULOSIN HCL 0.4 MG CAPSULE PO (09:17)
[2024-11-02] MEDS: EMPAGLIFLOZIN 25 MG TABLET PO (09:17)
[2024-11-02] MEDS: METOPROLOL TARTRATE 50 MG TAB PO ×2 (09:17→20:41)
[2024-11-02] MEDS: POTASSIUM CHLORIDE 10 MEQ ER TABLET PO (09:17)
[2024-11-02] MEDS: ENOXAPARIN 40 MG/0.4 ML SYRINGE SUB-Q (09:18)
--- NOTE | 2024-11-02 11:57 | P.PNIM_ITS ---
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 Status: Acute Assessment and Plan: Continue Jardiance Accu-Domi a.cJagdeep HS SSI (5) CAD (coronary artery disease): Code(s): I25.10 - Atherosclerotic heart disease of [place] coronary artery without angina pectoris Status: Acute Assessment and Plan: Continue aspirin, metoprolol, Jardiance, Zocor and Plavix (6) BPH (benign prostatic hyperplasia): Code(s): N40.0 - Benign prostatic hyperplasia without lower urinary tract symptoms Status: Acute Assessment and Plan: Continue Flomax (7) KATARINA (obstructive sleep apnea): Code(s): G47.33 - Obstructive sleep apnea (adult) (pediatric) Status: Acute Assessment and Plan: Home CPAP Plan patient with generalized weakness etiology uncertain however does have mild pancytopenia, his potassium was significantly low, most likely to diarrhea, which are being repleted and monitor, suspect his weakness may be related to his mild pancytopenia, patient was seen by recording studio internship and started work up including abdominal US to check hepatosplenomegaly will follow and further recommendation will follow, patient is on abx for suspected pneumonia, will repeat chest x-ray, will monitor and plan. Subjective Date/time seen: 11/02/24 11:57 Interval history: Weakness H&P-Narrative: 89-year-old male past medical history of hypertension, CAD and diabetes who presents the hospital with complaints of weakness and fatigue for the last 2-3 days. Patient states for the last several days so very tired and sleeping most of the days. Which is unlike him. He has narrow complaints of malaise. He denies nausea vomiting fever chills. Patient states that sometimes he has trouble swallowing food however he denies weight loss. Lab work shows leukopenia at 3.0, hemoglobin of 13.9, platelets of 188, sodium of 129, potassium of 3.0, carbon dioxide 16, anion gap of 13, BUN of 23, creatinine 0.97, glucose of 212, CK of 256, UA is not infective. Chest x-ray shows mild vascular congestion. With possible infection. Head CT shows no acute process. patient with generalized weakness etiology uncertain however does have mild pancytopenia, his potassium was significantly low, most likely to diarrhea, which are being repleted and monitor, suspect his weakness may be related to his mild pancytopenia, patient was seen by recording studio internship and started work up including abdominal US to check hepatosplenomegaly will follow and further recommendation will follow, patient is on abx for suspected pneumonia, will repeat chest x-ray, will monitor and plan. Review of Systems Review of Systems: 12 systems were reviewed and are negativ e except for as per HPI. ROS unobtainable: Yes unobtainable due to mental status Exam Narrative: Elderly frail Patient is comfortable, NAD HEENT: eyes are clear and none icteric LUNGS:CTA HEART: RR S1S2 ABD: BS+, Soft and nontender Lower extremities: no edema SKIN: nonjaundiced Neuro: grossly intact. Objective Data Vital Signs Vital Signs: Vital Signs - 24 hr 11/01/24 12:00 11/01/24 14:00 11/01/24 14:13 Temperature 36.9 C Pulse Rate 65 64 60 Respiratory Rate 16 17 Blood Pressure 106/51 L Pulse Oximetry 98 Oxygen Delivery 11/01/24 14:21 11/01/24 16:00 11/01/24 20:00 Temperature Pulse Rate 64 63 64 Respiratory Rate 17 Blood Pressure Pulse Oximetry Oxygen Delivery 11/01/24 20:12 11/01/24 20:13 11/01/24 20:18 Temperature Pulse Rate 65 68 Respiratory Rate 16 16 Blood Pressure Pulse Oximetry 98 Oxygen Delivery Room Air 11/01/24 20:50 11/01/24 20:50 11/01/24 22:00 Temperature 36.8 C Pulse Rate 65 67 Respiratory Rate 17 Blood Pressure 108/55 L Pulse Oximetry 98 99 Oxygen Delivery CPAP 11/01/24 22:45 11/02/24 00:04 11/02/24 01:40 Temperature Pulse Rate 65 65 57 L Respiratory Rate Blood Pressure Pulse Oximetry 98 98 Oxygen Delivery CPAP CPAP 11/02/24 01:41 11/02/24 01:48 11/02/24 04:00 Temperature Pulse Rate 57 L 59 L 66 Respiratory Rate 16 16 Blood Pressure Pulse Oximetry Oxygen Delivery 11/02/24 06:00 11/02/24 08:15 11/02/24 08:23 Temperature 36.9 C Pulse Rate 62 60 59 L Respiratory Rate 16 16 16 Blood Pressure 109/59 L Pulse Oximetry 100 Oxygen Delivery 11/02/24 08:24 Temperature Pulse Rate Respiratory Rate Blood Pressure Pulse Oximetry 98 Oxygen Delivery Room Air Intake/Output Intake/Output: Intake & Output 10/30/24 10/31/24 11/01/24 11/02/24 23:59 23:59 23:59 23:59 Intake Total 2290 4120 4840 1550 Balance 2290 4120 4840 1550 Meds/Results Medications: Active Medications Generic Name Dose Route Start Last Admin Trade Name Freq PRN Reason Stop Dose Admin Acetaminophen 650 mg 10/30/24 13:30 Acetaminophen 325 Mg Tablet PO Q4H PRN Mild Pain (1-3) or Fever Albuterol/Ipratropium 3 ml 10/30/24 14:00 11/02/24 08:20 Ipratropium 0.5 Mg/Albuterol Sulfate 2.5 Mg Ampul.Neb 3 Ml INHALATION 3 ml Q6HRT MONISHA Administration Aspirin 81 mg 10/31/24 09:00 11/02/24 09:16 Aspirin 81 Mg Chewable Tablet PO 81 mg DAILY MONISHA Administration Clopidogrel Bisulfate 75 mg 10/31/24 09:00 11/02/24 09:16 Clopidogrel Bisulfate 75 Mg Tablet PO 75 mg DAILY MONISHA Administration Dextrose 12.5 gm 10/30/24 13:35 Dextrose 50% 25 Gm/50 Ml Syringe IV PUSH PRN PRN Hypoglycemia Protocol Docusate Sodium 100 mg 10/31/24 09:00 10/31/24 08:24 Docusate Sodium 100 Mg Capsule PO Not Given DAILY MONISHA Empagliflozin 25 mg 10/31/24 09:00 11/02/24 09:17 Empagliflozin 25 Mg Tablet PO 25 mg DAILY MONISHA Administration Enoxaparin Sodium 40 mg 10/31/24 09:00 11/02/24 09:18 Enoxaparin 40 Mg/0.4 Ml Syringe SUB-Q 40 mg DAILY MONISHA Administration Glucagon 1 mg 10/30/24 13:35 Glucagon For Inj 1 Mg Vial IM PRN PRN Hypoglycemia Protocol Glucose 15 gm 10/30/24 13:35 Glucose Oral Gel 15 Gm Of Glucse In 37.5 Gm Tube PO PRN PRN Hypoglycemia Protocol Guaifenesin 1,200 mg 10/30/24 14:00 11/02/24 09:16 Guaifenesin 12 Hr 600 Mg Tabcr PO 1,200 mg Q12HR MONISHA Administration Sodium Chloride 1,000 mls @ 125 mls/hr 10/30/24 11:00 11/02/24 03:08 Normal Saline Iv IV CONT 125 mls/hr .Q8H MONISHA Administration Dextrose 1,000 mls @ 100 mls/hr 10/30/24 13:35 Dextrose 5% 1,000 Ml IVPB PRN PRN Hypoglycemia Protocol Ceftriaxone Sodium 1 gm/ 50 mls @ 100 mls/hr 10/31/24 09:00 11/02/24 09:17 Sodium Chloride IVPB 100 mls/hr Q24H MONISHA Administration Azithromycin 500 mg/ Sodium 250 mls @ 250 mls/hr 10/31/24 12:00 11/01/24 13:00 Chloride IVPB 250 mls/hr Q24H MONISHA Administration Insulin Aspart 2 - 5 units 10/30/24 17:00 11/02/24 11:47 Insulin Aspart (*Bkc) 100 Units/Ml SUB-Q Not Given TIDWM MONISHA Protocol Insulin Aspart 1 - 2 units 10/30/24 21:00 11/01/24 20:48 Insulin Aspart (*Bkc) 100 Units/Ml SUB-Q 1 units HS MONISHA Administration Protocol Loperamide HCl 2 mg 10/31/24 23:20 11/01/24 20:50 Loperamide Hcl 2 Mg Capsule PO 2 mg PRN PRN Administration Diarrhea Melatonin 10 mg 10/30/24 13:32 Melatonin 5 Mg Tablet PO HS PRN Sleep Metoprolol Tartrate 50 mg 10/30/24 21:00 11/02/24 09:17 Metoprolol Tartrate 50 Mg Tab PO 50 mg Q12HR MONISHA Administration Potassium Chloride 10 meq 10/31/24 09:00 11/02/24 09:17 Potassium Chloride 10 Meq Er Tablet PO 10 meq DAILY MONISHA Administration Simvastatin 5 mg 10/30/24 21:00 11/01/24 20:50 Simvastatin 5 Mg Tablet PO 5 mg HS MONISHA Administration Tamsulosin HCl 0.4 mg 10/31/24 09:00 11/02/24 09:17 Tamsulosin Hcl 0.4 Mg Capsule PO 0.4 mg DAILY MONISHA Administration Radiology Results: ITS Impressions Chest X-Ray 10/30/24 09:57 IMPRESSION: Mild vascular congestion. Increased interstitial markings. Superimposed infection cannot be excluded. Clinical correlation is recommended. Short-term follow-up chest radiograph is recommended after appropriate clinical therapy. Head CT 10/30/24 10:05 IMPRESSION: No evidence for acute intracranial hemorrhage or calvarial fracture. Labs Labs: Laboratory Results - last 24 hr 11/01/24 11/01/24 11/01/24 14:48 16:54 18:57 WBC RBC Hgb Hct MCV MCH MCHC RDW Plt Count MPV Sodium 138 Potassium 3.2 L Chloride 115 H Carbon Dioxide 15 L Anion Gap 8 BUN 7 L Creatinine 0.68 L Estim Creat Clear Calc 62 Estimated GFR > 60 Glucose 167 H POC Capillary Glucose 167 H Calcium 7.6 L Phosphorus < 1.0 L Magnesium Iron 38 L TIBC 224 L % Saturation 17 L Ferritin 116.00 Albumin 2.4 L Vitamin B12 941.0 H Folate 15.1 11/01/24 11/02/24 11/02/24 20:45 06:09 08:02 WBC 3.5 L RBC 4.03 L Hgb 11.4 L Hct 36.3 L MCV 90.1 MCH 28.3 MCHC 31.4 L RDW 15.3 H Plt Count 183 MPV 10.3 Sodium 133 L Potassium 3.1 L Chloride 113 H Carbon Dioxide 15 L Anion Gap 5 BUN 5 L Creatinine 0.66 L Estim Creat Clear Calc 63 Estimated GFR > 60 Glucose 148 H POC Capillary Glucose 222 H 139 H Calcium 7.5 L Phosphorus 1.0 L Magnesium 2.3 Iron TIBC % Saturation Ferritin Albumin 2.5 L Vitamin B12 Folate 11/02/24 11:39 WBC RBC Hgb Hct MCV MCH MCHC RDW Plt Count MPV Sodium Potassium Chloride Carbon Dioxide Anion Gap BUN Creatinine Estim Creat Clear Calc Estimated GFR Glucose POC Capillary Glucose 114 H Calcium Phosphorus Magnesium Iron TIBC % Saturation Ferritin Albumin Vitamin B12 Folate Quality VTE Prophylaxis VTE prophylaxis: mechanical ordered and pharmacologic ordered
[2024-11-02] MEDS: AZITHROMYCIN IV 500 MG in SODIUM CHLORIDE 0.9% IV 250 ML IVPB (12:50)
[2024-11-02] MEDS: SIMVASTATIN 5 MG TABLET PO (20:48)
[2024-11-03] VITALS (19 sets, daily range): BP systolic 115–139; BP diastolic 58–59; PULSE 59–69; RESP 16–18; TEMP 36.6–36.7; O2SAT 94–100
[2024-11-03] MEDS: SODIUM CHLORIDE 0.9% IV 1,000 ML 125 ML IV CONT ×3 (02:17→20:54)
[2024-11-03] MEDS: IPRATROPIUM 0.5 MG/ALBUTEROL SULFATE 2.5 MG AMPUL.NEB 3 ML INHALATION ×4 (02:53→19:45)
[2024-11-03 06:19] LABS: Hematocrit 32.7 % (42.0-52.0); Hemoglobin 10.6 g/dL (14.0-18.0); Mean Corpuscular HGB Conc 32.4 g/dl (32-36); Mean Corpuscular Hemoglobin 28.5 pg (26-34); Mean Corpuscular Volume 87.9 fl (80-100); Platelet Count Result 186 k/mm3 (150-375); Red Blood Count 3.72 M/mm3 (4.6-6.20); White Blood Count 3.5 K/mm3 (4.5-10.0)
[2024-11-03 06:39] LABS: Albumin Level 2.3 g/dL (3.5-5.1); Anion Gap 6 mmol/L (4-12); Blood Urea Nitrogen 4 mg/dL (9-20); Calcium 7.2 mg/dL (8.4-10.2); Carbon Dioxide 18 mmol/L (22-30); Chloride 115 mmol/L (98-107); Estimated CRCL calculation 63 ml/min; Estimated Glomerular Filt Rate > 60; Glucose 139 mg/dL (65-110); Magnesium 1.8 mg/dL (1.6-2.3); Potassium 3.0 mmol/L (3.4-5.0); Sodium 139 mmol/L (137-145)
[2024-11-03] MEDS: cefTRIAXone 1 GM in SODIUM CHLORIDE 0.9% IV 50 ML 100 ML IVPB (08:34)
[2024-11-03] MEDS: POTASSIUM CHLORIDE 10 MEQ ER TABLET PO (08:34)
[2024-11-03] MEDS: EMPAGLIFLOZIN 25 MG TABLET PO (08:34)
[2024-11-03] MEDS: TAMSULOSIN HCL 0.4 MG CAPSULE PO (08:34)
[2024-11-03] MEDS: guaiFENesin 12 HR 600 MG TABCR 1200 MG PO ×2 (08:34→20:55)
[2024-11-03] MEDS: METOPROLOL TARTRATE 50 MG TAB PO ×2 (08:34→20:55)
[2024-11-03] MEDS: ASPIRIN 81 MG CHEWABLE TABLET PO (08:34)
[2024-11-03] MEDS: CLOPIDOGREL BISULFATE 75 MG TABLET PO (08:34)
[2024-11-03] MEDS: POTASSIUM/PHOSPHORUS/SODIUM 1.5 GM PACKET 2 PACKET PO (08:35)
[2024-11-03] MEDS: ENOXAPARIN 40 MG/0.4 ML SYRINGE SUB-Q (08:42)
[2024-11-03] MEDS: AZITHROMYCIN IV 500 MG in SODIUM CHLORIDE 0.9% IV 250 ML IVPB (11:15)
[2024-11-03] MEDS: INSULIN ASPART (*BKC) 100 UNITS/ML SUB-Q (12:47)
--- NOTE | 2024-11-03 13:10 | P.PNIM_ITS ---
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 Status: Acute Assessment and Plan: Continue Jardiance Accu-Domi a.cJagdeep HS SSI (5) CAD (coronary artery disease): Code(s): I25.10 - Atherosclerotic heart disease of [place] coronary artery without angina pectoris Status: Acute Assessment and Plan: Continue aspirin, metoprolol, Jardiance, Zocor and Plavix (6) BPH (benign prostatic hyperplasia): Code(s): N40.0 - Benign prostatic hyperplasia without lower urinary tract symptoms Status: Acute Assessment and Plan: Continue Flomax (7) KATARINA (obstructive sleep apnea): Code(s): G47.33 - Obstructive sleep apnea (adult) (pediatric) Status: Acute Assessment and Plan: Home CPAP Plan patient with generalized weakness etiology uncertain however does have mild pancytopenia, his potassium was significantly low, most likely to diarrhea, which are being repleted and monitor, suspect his weakness may be related to his mild pancytopenia, patient was seen by drophammer operator and started work up including abdominal US to check hepatosplenomegaly and patient does have hepatosplenomegaly will follow and further recommendation will follow, patient is on abx for suspected pneumonia, repeat chest x-ray does show in patient pnuemonia, patient irritation on his bottom, possibly 2/2 diarrhea, discuss with nursing staff, there are no open wound or induration, most hyperemia, will apply ointment will monitor and plan. Subjective Date/time seen: 11/03/24 13:10 Interval history: Weakness H&P-Narrative: 89-year-old male past medical history of hypertension, CAD and diabetes who presents the hospital with complaints of weakness and fatigue for the last 2-3 days. Patient states for the last several days so very tired and sleeping most of the days. Which is unlike him. He has narrow complaints of malaise. He denies nausea vomiting fever chills. Patient states that sometimes he has trouble swallowing food however he denies weight loss. Lab work shows leukopenia at 3.0, hemoglobin of 13.9, platelets of 188, sodium of 129, potassium of 3.0, carbon dioxide 16, anion gap of 13, BUN of 23, creatinine 0.97, glucose of 212, CK of 256, UA is not infective. Chest x-ray shows mild vascular congestion. With possible infection. Head CT shows no acute process. patient with generalized weakness etiology uncertain however does have mild pancytopenia, his potassium was significantly low, most likely to diarrhea, which are being repleted and monitor, suspect his weakness may be related to his mild pancytopenia, patient was seen by drophammer operator and started work up including abdominal US to check hepatosplenomegaly and patient does have hepatosplenomegaly will follow and further recommendation will follow, patient is on abx for suspected pneumonia, repeat chest x-ray does show in patient pnuemonia, patient irritation on his bottom, possibly 2/2 diarrhea, discuss with nursing staff, there are no open wound or induration, most hyperemia, will apply ointment will monitor and plan. Review of Systems Review of Systems: 12 systems were reviewed and are negativ e except for as per HPI. ROS unobtainable: Yes unobtainable due to mental status Exam Narrative: Elderly frail Patient is comfortable, NAD HEENT: eyes are clear and none icteric LUNGS:CTA HEART: RR S1S2 ABD: BS+, Soft and nontender Lower extremities: no edema SKIN: nonjaundiced Neuro: grossly intact. Objective Data Vital Signs Vital Signs: Vital Signs - 24 hr 11/02/24 14:00 11/02/24 14:58 11/02/24 16:00 Temperature 36.6 C Pulse Rate 60 60 60 Respiratory Rate 16 16 Blood Pressure 114/54 L Pulse Oximetry 99 Oxygen Delivery 11/02/24 20:00 11/02/24 20:41 11/02/24 20:53 Temperature Pulse Rate 75 62 Respiratory Rate Blood Pressure Pulse Oximetry 99 Oxygen Delivery CPAP 11/02/24 22:00 11/02/24 22:19 11/02/24 22:20 Temperature 36.8 C Pulse Rate 65 60 Respiratory Rate 16 Blood Pressure 117/56 L Pulse Oximetry 98 99 99 Oxygen Delivery CPAP Room Air 11/02/24 22:20 11/02/24 22:25 11/03/24 00:04 Temperature Pulse Rate 60 61 60 Respiratory Rate 16 16 Blood Pressure Pulse Oximetry Oxygen Delivery 11/03/24 02:56 11/03/24 02:57 11/03/24 03:04 Temperature Pulse Rate 60 60 62 Respiratory Rate 16 16 Blood Pressure Pulse Oximetry 98 Oxygen Delivery CPAP 11/03/24 04:01 11/03/24 06:00 11/03/24 07:53 Temperature 36.7 C Pulse Rate 60 69 61 Respiratory Rate 18 16 Blood Pressure 115/59 L Pulse Oximetry 99 Oxygen Delivery 11/03/24 07:55 11/03/24 07:58 Temperature Pulse Rate 61 60 Respiratory Rate 16 Blood Pressure Pulse Oximetry 99 Oxygen Delivery Room Air Intake/Output Intake/Output: Intake & Output 10/31/24 11/01/24 11/02/24 11/03/24 23:59 23:59 23:59 23:59 Intake Total 4120 5090 5310 2880 Output Total 400 Balance 4120 5090 5310 2480 Meds/Results Medications: Active Medications Generic Name Dose Route Start Last Admin Trade Name Freq PRN Reason Stop Dose Admin Acetaminophen 650 mg 10/30/24 13:30 Acetaminophen 325 Mg Tablet PO Q4H PRN Mild Pain (1-3) or Fever Albuterol/Ipratropium 3 ml 10/30/24 14:00 11/03/24 07:53 Ipratropium 0.5 Mg/Albuterol Sulfate 2.5 Mg Ampul.Neb 3 Ml INHALATION 3 ml Q6HRT MONISHA Administration Aspirin 81 mg 10/31/24 09:00 11/03/24 08:34 Aspirin 81 Mg Chewable Tablet PO 81 mg DAILY MONISHA Administration Clopidogrel Bisulfate 75 mg 10/31/24 09:00 11/03/24 08:34 Clopidogrel Bisulfate 75 Mg Tablet PO 75 mg DAILY MONISHA Administration Dextrose 12.5 gm 10/30/24 13:35 Dextrose 50% 25 Gm/50 Ml Syringe IV PUSH PRN PRN Hypoglycemia Protocol Docusate Sodium 100 mg 10/31/24 09:00 10/31/24 08:24 Docusate Sodium 100 Mg Capsule PO Not Given DAILY MONISHA Empagliflozin 25 mg 10/31/24 09:00 11/03/24 08:34 Empagliflozin 25 Mg Tablet PO 25 mg DAILY MONISHA Administration Enoxaparin Sodium 40 mg 10/31/24 09:00 11/03/24 08:42 Enoxaparin 40 Mg/0.4 Ml Syringe SUB-Q 40 mg DAILY MONISHA Administration Glucagon 1 mg 10/30/24 13:35 Glucagon For Inj 1 Mg Vial IM PRN PRN Hypoglycemia Protocol Glucose 15 gm 10/30/24 13:35 Glucose Oral Gel 15 Gm Of Glucse In 37.5 Gm Tube PO PRN PRN Hypoglycemia Protocol Guaifenesin 1,200 mg 10/30/24 14:00 11/03/24 08:34 Guaifenesin 12 Hr 600 Mg Tabcr PO 1,200 mg Q12HR MONISHA Administration Sodium Chloride 1,000 mls @ 125 mls/hr 10/30/24 11:00 11/03/24 11:15 Normal Saline Iv IV CONT 125 mls/hr .Q8H MONISHA Administration Dextrose 1,000 mls @ 100 mls/hr 10/30/24 13:35 Dextrose 5% 1,000 Ml IVPB PRN PRN Hypoglycemia Protocol Ceftriaxone Sodium 1 gm/ 50 mls @ 100 mls/hr 10/31/24 09:00 11/03/24 08:34 Sodium Chloride IVPB 100 mls/hr Q24H MONISHA Administration Azithromycin 500 mg/ Sodium 250 mls @ 250 mls/hr 10/31/24 12:00 11/03/24 11:15 Chloride IVPB 250 mls/hr Q24H MONISHA Administration Insulin Aspart 2 - 5 units 10/30/24 17:00 11/03/24 12:47 Insulin Aspart (*Bkc) 100 Units/Ml SUB-Q 2 units TIDWM MONISHA Administration Protocol Insulin Aspart 1 - 2 units 10/30/24 21:00 11/02/24 20:53 Insulin Aspart (*Bkc) 100 Units/Ml SUB-Q Not Given HS MONISHA Protocol Loperamide HCl 2 mg 10/31/24 23:20 11/01/24 20:50 Loperamide Hcl 2 Mg Capsule PO 2 mg PRN PRN Administration Diarrhea Melatonin 10 mg 10/30/24 13:32 Melatonin 5 Mg Tablet PO HS PRN Sleep Metoprolol Tartrate 50 mg 10/30/24 21:00 11/03/24 08:34 Metoprolol Tartrate 50 Mg Tab PO 50 mg Q12HR MONISHA Administration Potassium Chloride 10 meq 10/31/24 09:00 11/03/24 08:34 Potassium Chloride 10 Meq Er Tablet PO 10 meq DAILY MONISHA Administration Simvastatin 5 mg 10/30/24 21:00 11/02/24 20:48 Simvastatin 5 Mg Tablet PO 5 mg HS MONISHA Administration Tamsulosin HCl 0.4 mg 10/31/24 09:00 11/03/24 08:34 Tamsulosin Hcl 0.4 Mg Capsule PO 0.4 mg DAILY MONISHA Administration Radiology Results: ITS Impressions Head CT 10/30/24 10:05 IMPRESSION: No evidence for acute intracranial hemorrhage or calvarial fracture. Abdomen Ultrasound 11/02/24 12:28 IMPRESSION: Evaluation of the pancreas is limited by overlying bowel gas. Redemonstration of hepatosplenomegaly, unchanged from 2023. No splenomegaly. Chest X-Ray 11/03/24 10:08 IMPRESSION: No focal infiltrate or effusion. Increased interstitial markings within the right lung base, likely representing atelectasis for which cross-sectional imaging (noncontrast enhanced CT examination of the chest) is suggested for further evaluation and characterization. Labs Labs: Laboratory Results - last 24 hr 11/02/24 11/02/24 11/03/24 17:15 20:52 05:43 WBC 3.5 L RBC 3.72 L Hgb 10.6 L Hct 32.7 L MCV 87.9 MCH 28.5 MCHC 32.4 RDW 15.4 H Plt Count 186 MPV 9.9 Sodium 139 Potassium 3.0 L Chloride 115 H Carbon Dioxide 18 L Anion Gap 6 BUN 4 L Creatinine 0.66 L Estim Creat Clear Calc 63 Estimated GFR > 60 Glucose 139 H POC Capillary Glucose 144 H 199 H Calcium 7.2 L Phosphorus 1.5 L Magnesium 1.8 Albumin 2.3 L 11/03/24 11/03/24 08:00 11:51 WBC RBC Hgb Hct MCV MCH MCHC RDW Plt Count MPV Sodium Potassium Chloride Carbon Dioxide Anion Gap BUN Creatinine Estim Creat Clear Calc Estimated GFR Glucose POC Capillary Glucose 123 H 219 H Calcium Phosphorus Magnesium Albumin Quality VTE Prophylaxis VTE prophylaxis: mechanical ordered and pharmacologic ordered
[2024-11-03 13:48] LABS: Albumin Level 2.6 g/dL (3.5-5.1); Anion Gap 7 mmol/L (4-12); Blood Urea Nitrogen 4 mg/dL (9-20); Calcium 7.3 mg/dL (8.4-10.2); Carbon Dioxide 17 mmol/L (22-30); Chloride 114 mmol/L (98-107); Estimated CRCL calculation 72 ml/min; Estimated Glomerular Filt Rate > 60; Glucose 187 mg/dL (65-110); Potassium 3.4 mmol/L (3.4-5.0); Sodium 138 mmol/L (137-145)
[2024-11-03] MEDS: SIMVASTATIN 5 MG TABLET PO (20:55)
[2024-11-03] MEDS: MELATONIN 5 MG TABLET 10 MG PO (20:56)
[2024-11-04] VITALS (17 sets, daily range): BP systolic 128–148; BP diastolic 62–67; PULSE 59–73; RESP 16–18; TEMP 36–36.7; O2SAT 93–99
[2024-11-04] MEDS: IPRATROPIUM 0.5 MG/ALBUTEROL SULFATE 2.5 MG AMPUL.NEB 3 ML INHALATION ×3 (02:31→15:12)
[2024-11-04] MEDS: SODIUM CHLORIDE 0.9% IV 1,000 ML 125 ML IV CONT ×2 (04:56→13:17)
[2024-11-04 06:26] LABS: Hematocrit 33.4 % (42.0-52.0); Hemoglobin 10.7 g/dL (14.0-18.0); Mean Corpuscular HGB Conc 32.0 g/dl (32-36); Mean Corpuscular Hemoglobin 28.4 pg (26-34); Mean Corpuscular Volume 88.6 fl (80-100); Platelet Count Result 211 k/mm3 (150-375); Red Blood Count 3.77 M/mm3 (4.6-6.20); White Blood Count 4.3 K/mm3 (4.5-10.0)
[2024-11-04 06:41] LABS: Albumin Level 2.3 g/dL (3.5-5.1); Anion Gap 7 mmol/L (4-12); Blood Urea Nitrogen 4 mg/dL (9-20); Calcium 7.0 mg/dL (8.4-10.2); Carbon Dioxide 18 mmol/L (22-30); Chloride 111 mmol/L (98-107); Estimated CRCL calculation 72 ml/min; Estimated Glomerular Filt Rate > 60; Glucose 135 mg/dL (65-110); Magnesium 1.8 mg/dL (1.6-2.3); Potassium 3.0 mmol/L (3.4-5.0); Sodium 136 mmol/L (137-145)
[2024-11-04] MEDS: POTASSIUM CHLORIDE 20 MEQ PACKET (FOR LIQUID) 40 MEQ PO (08:53)
[2024-11-04] MEDS: TAMSULOSIN HCL 0.4 MG CAPSULE PO (08:54)
[2024-11-04] MEDS: guaiFENesin 12 HR 600 MG TABCR 1200 MG PO ×2 (08:54→21:19)
[2024-11-04] MEDS: POTASSIUM CHLORIDE 10 MEQ ER TABLET PO (08:54)
[2024-11-04] MEDS: ASPIRIN 81 MG CHEWABLE TABLET PO (08:54)
[2024-11-04] MEDS: EMPAGLIFLOZIN 25 MG TABLET PO (08:55)
[2024-11-04] MEDS: CLOPIDOGREL BISULFATE 75 MG TABLET PO (08:55)
[2024-11-04] MEDS: METOPROLOL TARTRATE 50 MG TAB PO ×2 (08:56→21:19)
[2024-11-04] MEDS: CEFDINIR 300 MG CAPSULE PO ×2 (09:01→21:10)
[2024-11-04] MEDS: ENOXAPARIN 40 MG/0.4 ML SYRINGE SUB-Q (09:01)
[2024-11-04] MEDS: INSULIN ASPART (*BKC) 100 UNITS/ML SUB-Q ×2 (11:56→21:14)
--- NOTE | 2024-11-04 16:43 | P.PNIM_ITS ---
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 Status: Acute Assessment and Plan: Continue Jardiance Accu-Domi a.cJagdeep HS SSI (5) CAD (coronary artery disease): Code(s): I25.10 - Atherosclerotic heart disease of [place] coronary artery without angina pectoris Status: Acute Assessment and Plan: Continue aspirin, metoprolol, Jardiance, Zocor and Plavix (6) BPH (benign prostatic hyperplasia): Code(s): N40.0 - Benign prostatic hyperplasia without lower urinary tract symptoms Status: Acute Assessment and Plan: Continue Flomax (7) KATARINA (obstructive sleep apnea): Code(s): G47.33 - Obstructive sleep apnea (adult) (pediatric) Status: Acute Assessment and Plan: Home CPAP Plan patient with generalized weakness etiology uncertain however does have mild pancytopenia, his potassium was significantly low, most likely to diarrhea, which are being repleted and monitor, suspect his weakness may be related to his mild pancytopenia, patient was seen by stumper feller and started work up including abdominal US to check hepatosplenomegaly and patient does have hepatosplenomegaly will follow and further recommendation will follow, patient is on abx for suspected pneumonia, repeat chest x-ray does not show any pneumonia, patient has completed 5 days of Zithromax, and will stop ceftriaxone and complete 7 days with oral cefdinir, patient irritation on his bottom, possibly 2/2 diarrhea, check the bottom with nursing staff, there are no open wound or induration, there is some superficial irritation, mostly hyperemia, patient is instructed rotate side when sitting or sleeping, patient electrolytes are improving, will apply ointment will monitor and plan. Subjective Date/time seen: 11/04/24 16:43 Interval history: Weakness H&P-Narrative: 89-year-old male past medical history of hypertension, CAD and diabetes who presents the hospital with complaints of weakness and fatigue for the last 2-3 days. Patient states for the last several days so very tired and sleeping most of the days. Which is unlike him. He has narrow complaints of malaise. He denies nausea vomiting fever chills. Patient states that sometimes he has trouble swallowing food however he denies weight loss. Lab work shows leukopenia at 3.0, hemoglobin of 13.9, platelets of 188, sodium of 129, potassium of 3.0, carbon dioxide 16, anion gap of 13, BUN of 23, creatinine 0.97, glucose of 212, CK of 256, UA is not infective. Chest x-ray shows mild vascular congestion. With possible infection. Head CT shows no acute process. patient with generalized weakness etiology uncertain however does have mild pancytopenia, his potassium was significantly low, most likely to diarrhea, which are being repleted and monitor, suspect his weakness may be related to his mild pancytopenia, patient was seen by stumper feller and started work up including abdominal US to check hepatosplenomegaly and patient does have hepatosplenomegaly will follow and further recommendation will follow, patient is on abx for suspected pneumonia, repeat chest x-ray does not show any pneumonia, patient has completed 5 days of Zithromax, and will stop ceftriaxone and complete 7 days with oral cefdinir, patient irritation on his bottom, possibly 2/2 diarrhea, check the bottom with nursing staff, there are no open wound or induration, there is some superficial irritation, mostly hyperemia, pa tient is instructed rotate side when sitting or sleeping, patient electrolytes are improving, will apply ointment will monitor and plan. Review of Systems Review of Systems: 12 systems were reviewed and are negativ e except for as per HPI. ROS unobtainable: Yes unobtainable due to mental status Exam Narrative: Elderly frail Patient is comfortable, NAD HEENT: eyes are clear and none icteric LUNGS:CTA HEART: RR S1S2 ABD: BS+, Soft and nontender Lower extremities: no edema SKIN: nonjaundiced Neuro: grossly intact. Objective Data Vital Signs Vital Signs: Vital Signs - 24 hr 11/03/24 19:45 11/03/24 19:45 11/03/24 19:50 Temperature Pulse Rate 66 66 66 Respiratory Rate 16 16 Blood Pressure Pulse Oximetry 99 Oxygen Delivery Room Air 11/03/24 20:01 11/03/24 20:55 11/03/24 20:55 Temperature Pulse Rate 62 60 Respiratory Rate Blood Pressure Pulse Oximetry 99 Oxygen Delivery CPAP 11/03/24 22:00 11/03/24 22:00 11/04/24 00:05 Temperature 36.6 C Pulse Rate 60 62 61 Respiratory Rate 17 Blood Pressure 139/59 L Pulse Oximetry 94 99 Oxygen Delivery CPAP 11/04/24 02:31 11/04/24 02:31 11/04/24 02:40 Temperature Pulse Rate 66 66 Respiratory Rate 16 16 Blood Pressure Pulse Oximetry Oxygen Delivery CPAP 11/04/24 04:01 11/04/24 06:00 11/04/24 08:00 Temperature 36.6 C Pulse Rate 60 61 61 Respiratory Rate 16 Blood Pressure 131/62 Pulse Oximetry 93 Oxygen Delivery 11/04/24 08:52 11/04/24 08:52 11/04/24 08:55 Temperature Pulse Rate 64 Respiratory Rate 16 Blood Pressure Pulse Oximetry 96 Oxygen Delivery Room Air Room Air 11/04/24 08:56 11/04/24 12:00 11/04/24 14:00 Temperature 36.7 C Pulse Rate 59 L 60 59 L Respiratory Rate 18 Blood Pressure 128/67 Pulse Oximetry 99 Oxygen Delivery 11/04/24 15:12 11/04/24 15:16 Temperature Pulse Rate 61 60 Respiratory Rate 16 16 Blood Pressure Pulse Oximetry Oxygen Delivery Intake/Output Intake/Output: Intake & Output 11/01/24 11/02/24 11/03/24 11/04/24 23:59 23:59 23:59 23:59 Intake Total 5090 5310 6340 2640 Output Total 1600 Balance 5090 5310 2760 2640 Meds/Results Medications: Active Medications Generic Name Dose Route Start Last Admin Trade Name Freq PRN Reason Stop Dose Admin Acetaminophen 650 mg 10/30/24 13:30 Acetaminophen 325 Mg Tablet PO Q4H PRN Mild Pain (1-3) or Fever Albuterol/Ipratropium 3 ml 10/30/24 14:00 11/04/24 15:12 Ipratropium 0.5 Mg/Albuterol Sulfate 2.5 Mg Ampul.Neb 3 Ml INHALATION 3 ml Q6HRT MONISHA Administration Aspirin 81 mg 10/31/24 09:00 11/04/24 08:54 Aspirin 81 Mg Chewable Tablet PO 81 mg DAILY MONISHA Administration Cefdinir 300 mg 11/04/24 09:00 11/04/24 09:01 Cefdinir 300 Mg Capsule PO 300 mg Q12HR MONISHA Administration Clopidogrel Bisulfate 75 mg 10/31/24 09:00 11/04/24 08:55 Clopidogrel Bisulfate 75 Mg Tablet PO 75 mg DAILY MONISHA Administration Dextrose 12.5 gm 10/30/24 13:35 Dextrose 50% 25 Gm/50 Ml Syringe IV PUSH PRN PRN Hypoglycemia Protocol Docusate Sodium 100 mg 10/31/24 09:00 10/31/24 08:24 Docusate Sodium 100 Mg Capsule PO Not Given DAILY MONISHA Empagliflozin 25 mg 10/31/24 09:00 11/04/24 08:55 Empagliflozin 25 Mg Tablet PO 25 mg DAILY MONISHA Administration Enoxaparin Sodium 40 mg 10/31/24 09:00 11/04/24 09:01 Enoxaparin 40 Mg/0.4 Ml Syringe SUB-Q 40 mg DAILY MONISHA Administration Glucagon 1 mg 10/30/24 13:35 Glucagon For Inj 1 Mg Vial IM PRN PRN Hypoglycemia Protocol Glucose 15 gm 10/30/24 13:35 Glucose Oral Gel 15 Gm Of Glucse In 37.5 Gm Tube PO PRN PRN Hypoglycemia Protocol Guaifenesin 1,200 mg 10/30/24 14:00 11/04/24 08:54 Guaifenesin 12 Hr 600 Mg Tabcr PO 1,200 mg Q12HR MONISHA Administration Sodium Chloride 1,000 mls @ 125 mls/hr 10/30/24 11:00 11/04/24 13:17 Normal Saline Iv IV CONT 125 mls/hr .Q8H MONISHA Administration Dextrose 1,000 mls @ 100 mls/hr 10/30/24 13:35 Dextrose 5% 1,000 Ml IVPB PRN PRN Hypoglycemia Protocol Insulin Aspart 2 - 5 units 10/30/24 17:00 11/04/24 11:56 Insulin Aspart (*Bkc) 100 Units/Ml SUB-Q 2 units TIDWM MONISHA Administration Protocol Insulin Aspart 1 - 2 units 10/30/24 21:00 11/03/24 20:56 Insulin Aspart (*Bkc) 100 Units/Ml SUB-Q Not Given HS MONISHA Protocol Loperamide HCl 2 mg 10/31/24 23:20 11/01/24 20:50 Loperamide Hcl 2 Mg Capsule PO 2 mg PRN PRN Administration Diarrhea Loperamide HCl 2 mg 11/03/24 13:14 Loperamide Hcl 2 Mg Capsule PO PRN PRN Diarrhea Melatonin 10 mg 10/30/24 13:32 11/03/24 20:56 Melatonin 5 Mg Tablet PO 10 mg HS PRN Administration Sleep Metoprolol Tartrate 50 mg 10/30/24 21:00 11/04/24 08:56 Metoprolol Tartrate 50 Mg Tab PO 50 mg Q12HR MONISHA Administration Potassium Chloride 10 meq 10/31/24 09:00 11/04/24 08:54 Potassium Chloride 10 Meq Er Tablet PO 10 meq DAILY MONISHA Administration Simvastatin 5 mg 10/30/24 21:00 11/03/24 20:55 Simvastatin 5 Mg Tablet PO 5 mg HS MONISHA Administration Tamsulosin HCl 0.4 mg 10/31/24 09:00 11/04/24 08:54 Tamsulosin Hcl 0.4 Mg Capsule PO 0.4 mg DAILY MONISHA Administration Radiology Results: ITS Impressions Head CT 10/30/24 10:05 IMPRESSION: No evidence for acute intracranial hemorrhage or calvarial fracture. Abdomen Ultrasound 11/02/24 12:28 IMPRESSION: Evaluation of the pancreas is limited by overlying bowel gas. Redemonstration of hepatosplenomegaly, unchanged from 2023. No splenomegaly. Chest X-Ray 11/03/24 10:08 IMPRESSION: No focal infiltrate or effusion. Increased interstitial markings within the right lung base, likely representing atelectasis for which cross-sectional imaging (noncontrast enhanced CT examination of the chest) is suggested for further evaluation and characterization. Labs Labs: Laboratory Results - last 24 hr 11/03/24 11/03/24 11/04/24 16:46 20:43 06:01 WBC 4.3 L RBC 3.77 L Hgb 10.7 L Hct 33.4 L MCV 88.6 MCH 28.4 MCHC 32.0 RDW 15.5 H Plt Count 211 MPV 10.2 Sodium 136 L Potassium 3.0 L Chloride 111 H Carbon Dioxide 18 L Anion Gap 7 BUN 4 L Creatinine 0.57 L Estim Creat Clear Calc 72 Estimated GFR > 60 Glucose 135 H POC Capillary Glucose 156 H 194 H Calcium 7.0 L Phosphorus 2.5 Magnesium 1.8 Albumin 2.3 L 11/04/24 11/04/24 11/04/24 07:56 11:32 16:18 WBC RBC Hgb Hct MCV MCH MCHC RDW Plt Count MPV Sodium Potassium Chloride Carbon Dioxide Anion Gap BUN Creatinine Estim Creat Clear Calc Estimated GFR Glucose POC Capillary Glucose 152 H 243 H 168 H Calcium Phosphorus Magnesium Albumin Quality VTE Prophylaxis VTE prophylaxis: mechanical ordered and pharmacologic ordered
[2024-11-04] MEDS: SIMVASTATIN 5 MG TABLET PO (21:19)
--- NOTE | 2024-11-04 23:04 | PCRCNOTE ---
Window of time for administration has passed. See next scheduled administration.
[2024-11-05] VITALS (12 sets, daily range): BP systolic 152; BP diastolic 68–72; PULSE 59–65; RESP 16–18; TEMP 36.4–36.6; O2SAT 98–100
[2024-11-05] MEDS: SODIUM CHLORIDE 0.9% IV 1,000 ML 125 ML IV CONT ×2 (00:59→09:29)
[2024-11-05] MEDS: IPRATROPIUM 0.5 MG/ALBUTEROL SULFATE 2.5 MG AMPUL.NEB 3 ML INHALATION ×3 (03:08→15:45)
[2024-11-05 06:50] LABS: Hematocrit 35.8 % (42.0-52.0); Hemoglobin 11.5 g/dL (14.0-18.0); Mean Corpuscular HGB Conc 32.1 g/dl (32-36); Mean Corpuscular Hemoglobin 28.3 pg (26-34); Mean Corpuscular Volume 88.2 fl (80-100); Platelet Count Result 268 k/mm3 (150-375); Red Blood Count 4.06 M/mm3 (4.6-6.20); White Blood Count 5.2 K/mm3 (4.5-10.0)
[2024-11-05 07:13] LABS: Albumin Level 2.8 g/dL (3.5-5.1); Anion Gap 6 mmol/L (4-12); Blood Urea Nitrogen 4 mg/dL (9-20); Calcium 7.6 mg/dL (8.4-10.2); Carbon Dioxide 19 mmol/L (22-30); Chloride 109 mmol/L (98-107); Estimated CRCL calculation 78 ml/min; Estimated Glomerular Filt Rate > 60; Glucose 140 mg/dL (65-110); Magnesium 2.0 mg/dL (1.6-2.3); Potassium 3.6 mmol/L (3.4-5.0); Sodium 134 mmol/L (137-145)
[2024-11-05] MEDS: CEFDINIR 300 MG CAPSULE PO (08:22)
[2024-11-05] MEDS: METOPROLOL TARTRATE 50 MG TAB PO (08:22)
[2024-11-05] MEDS: ASPIRIN 81 MG CHEWABLE TABLET PO (08:22)
[2024-11-05] MEDS: CLOPIDOGREL BISULFATE 75 MG TABLET PO (08:22)
[2024-11-05] MEDS: guaiFENesin 12 HR 600 MG TABCR 1200 MG PO (08:22)
[2024-11-05] MEDS: TAMSULOSIN HCL 0.4 MG CAPSULE PO (08:23)
[2024-11-05] MEDS: POTASSIUM CHLORIDE 10 MEQ ER TABLET PO (08:23)
[2024-11-05] MEDS: EMPAGLIFLOZIN 25 MG TABLET PO (08:23)
[2024-11-05] MEDS: ENOXAPARIN 40 MG/0.4 ML SYRINGE SUB-Q (08:31)
[2024-11-05] MEDS: INSULIN ASPART (*BKC) 100 UNITS/ML SUB-Q (12:26)
[2024-11-05] MEDS: POTASSIUM CHLORIDE 20 MEQ PACKET (FOR LIQUID) 40 MEQ PO (12:28)
--- NOTE | 2024-11-05 15:42 | P.DS_ITS ---
DS: Admitting Diagnosis Discharge Date 11/05/24 Admitting Diagnosis Weakness DS: Discharge Diagnosis Discharge Diagnosis (1) Pneumonia: Code(s): J18.9 - Pneumonia, unspecified organism Status: Acute Assessment and Plan: IV Rocephin and azithromycin Guaifenesin DuoNebs Blood cultures pending (2) Acute hypokalemia: Code(s): E87.6 - Hypokalemia Status: Acute Assessment and Plan: Replete as needed BMP in the morning (3) Acute hyponatremia: Code(s): E87.1 - Hypo-osmolality and hyponatremia Status: Acute Assessment and Plan: Fluid bolus and IVF Repeat BMP in the morning (4) Diabetes: Code(s): E11.9 - Type 2 diabetes mellitus without complications Status: Acute Assessment and Plan: Continue Ondina hwang HS SSI (5) CAD (coronary artery disease): Code(s): I25.10 - Atherosclerotic heart disease of [place] coronary artery without angina pectoris Status: Acute Assessment and Plan: Continue aspirin, metoprolol, Jardiance, Zocor and Plavix (6) BPH (benign prostatic hyperplasia): Code(s): N40.0 - Benign prostatic hyperplasia without lower urinary tract symptoms Status: Acute Assessment and Plan: Continue Flomax (7) KATARINA (obstructive sleep apnea): Code(s): G47.33 - Obstructive sleep apnea (adult) (pediatric) Status: Acute Assessment and Plan: Home CPAP Plan patient with generalized weakness etiology uncertain however does have mild pancytopenia, his potassium was significantly low, most likely to diarrhea, which are being repleted and monitor, suspect his weakness may be related to his mild pancytopenia, patient was seen by cover machine operator and started work up including abdominal US to check hepatosplenomegaly and patient does have hepatosplenomegaly will follow and further recommendation will follow, patient is on abx for suspected pneumonia, repeat chest x-ray does not show any pneumonia, patient has completed 5 days of Zithromax, and will stop ceftriaxone and complete 7 days with oral cefdinir, patient irritation on his bottom, possibly 2/2 diarrhea, check the bottom with nursing staff, there are no open wound or induration, there is some superficial irritation, mostly hyperemia, patient is instructed rotate side when sitting or sleeping, patient electrolytes are improving, will apply ointment will monitor and plan. DS: Summary Hospital Course Hospital Course: patient with generalized weakness etiology uncertain however does have mild pancytopenia, his potassium was significantly low, most likely to diarrhea, which are being repleted and monitor, suspect his weakness may be related to his mild pancytopenia, patient was seen by cover machine operator and started work up including abdominal US to check hepatosplenomegaly and patient does have hepatosplenomegaly will follow and further recommendation will follow, patient is on abx for suspected pneumonia, repeat chest x-ray does not show any pneumonia, patient has completed 5 days of Zithromax, and will stop ceftriaxone and complete 7 days with oral cefdinir, patient irritation on his bottom, possibly 2/2 diarrhea, check the bottom with nursing staff, there are no open wound or induration, there is some superficial irritation, mostly hyperemia, patient is instructed rotate side when sitting or sleeping, patient electrolytes are improving, will apply ointment will monitor and plan. patient is clinically stable and he is feeling better, will discharge home today. Time Spent with Patient Time attestation: Total time spent providing and/or coordinating discharge services: Exam Narrative: Elderly frail Patient is comfortable, NAD HEENT: eyes are clear and none icteric LUNGS:CTA HEART: RR S1S2 ABD: BS+, Soft and nontender Lower extremities: no edema SKIN: nonjaundiced Neuro: grossly intact. DS: Data Data Completed and Pending Labs on day of discharge: Labs from last 24 hours 11/05/24 11/05/24 11/05/24 11:49 07:51 06:39 WBC 5.2 RBC 4.06 L Hgb 11.5 L Hct 35.8 L MCV 88.2 MCH 28.3 MCHC 32.1 RDW 16.0 H Plt Count 268 MPV 9.9 Sodium 134 L Potassium 3.6 Chloride 109 H Carbon Dioxide 19 L Anion Gap 6 BUN 4 L Creatinine 0.52 L Estim Creat Clear Calc 78 Estimated GFR > 60 Glucose 140 H POC Capillary Glucose 235 H 146 H Calcium 7.6 L Phosphorus 3.2 Magnesium 2.0 Juanita Transferrin Receptr Albumin 2.8 L Methylmalonic Acid 11/04/24 11/04/24 11/01/24 21:06 16:18 14:48 WBC RBC Hgb Hct MCV MCH MCHC RDW Plt Count MPV Sodium Potassium Chloride Carbon Dioxide Anion Gap BUN Creatinine Estim Creat Clear Calc Estimated GFR Glucose POC Capillary Glucose 207 H 168 H Calcium Phosphorus Magnesium Juanita Transferrin Receptr 12.1 L Albumin Methylmalonic Acid 112 Discharge Plan Discharge Attending physician on discharge: Pedro Luis Awad Consulting providers: Socrates Lau; Dheeraj Beavers; Dolly Calhoun; Isis Perez; Ramses An; Calin Macias; Layne Martino Discharging Clinician: Liseth Carvalho Patient Disposition: Home Activity: as tolerated Diet: heart healthy Discharge Instructions: Per Care Coordination: Patient to discharge to home with [facility] for RN/PT/OT services. Office will call patient to set up initial visit. Office . RN please fax discharge instructions and medication sheets to fax #[phone]. Thanks. patient to follow up with his primary care provider as soon as possible, patient is instructed if any symptoms worsen to go to nearest ER. Patient Instructions: Antibiotic Form Patient Language: Tamazight Stand Alone Forms: General Discharge Information Follow-up/Referrals: Socrates Lau MD [Physician] - Josie Price MD [Primary Care Provider] - Discharge Medications: New guaifenesin [Mucus Relief ER] 600 mg Tablet Extended Release 12hr 1,200 mg PO Q12HR Qty: 30 0RF cefdinir 300 mg Capsule 300 mg PO Q12HR Qty: 10 0RF Continued clopidogrel 75 mg Tablet 75 mg PO DAILY tamsulosin 0.4 mg Capsule 0.4 mg PO DAILY simvastatin 5 mg Tablet 5 mg PO DAILY pantoprazole 40 mg Tablet,Delayed Release (Dr/Ec) 40 mg PO QAM metoprolol tartrate 50 mg tablet 50 mg PO BID aspirin 81 mg Tablet,Chewable 81 mg PO DAILY calcium carbonate-vitamin D3 600 mg(1,500mg) -500 unit Tablet Extended Release 24 Hr 1,200 tablet PO DAILY Rx Instructions: take 2 tablets AM, 1 tablet PM melatonin 10 mg Tablet 10 mg PO HS PRN (Reason: Sleep) empagliflozin 25 mg Tablet 25 mg PO DAILY Centrum Adult 50 Plus 80 mcg Tablet,Chewable 1 tablet PO DAILY calcium carbonate-vitamin D3 600 mg(1,500mg) -500 unit Tablet Extended Release 24 Hr 1 tablet PO QPM Rx Instructions: takes 2 tablets in AM, 1 tablet PM sitagliptin 100 mg tablet 100 mg PO DAILY Date of admission: 10/30/24 11:00 Primary Care Provider: Josie Price Admitting Provider: Pedro Luis Awad Attending physician on admission: Liseth Carvalho Condition: Stable
== END 2024-11-05 16:35 | disposition home or self-care (01) | DRG 194 ==
LOC: ANHED 10:59 → ANH3MEDSUR 11:55
PROVIDERS: Emergency Medicine; Internal Medicine; Internal Medicine Hematology & Oncology; Nurse Practitioner Gerontology; Admitting Provider Internal Medicine; Emergency Provider Registered Nurse; PCP Family Medicine; Visit Provider Family Medicine
DX: J18.9 Pneumonia, unspecified organism (principal); D61.818 Other pancytopenia; E87.1 Hypo-osmolality and hyponatremia; E87.6 Hypokalemia; E11.9 Type 2 diabetes mellitus without complications; I25.10 Atherosclerotic heart disease of native coronary artery without angina pectoris; N40.0 Benign prostatic hyperplasia without lower urinary tract symptoms; G47.33 Obstructive sleep apnea (adult) (pediatric); I10 Essential (primary) hypertension; Z90.49 Acquired absence of other specified parts of digestive tract
CPT/HCPCS: 36415; 70450; 71045; 71046; 76700; 80048; 80053; 80069; 81001; 82550; 82607; 82728; 82746; 82948; 83540; 83550; 83605; 83735; 83921; 84100; 84132; 84238; 84443; 85025; 85027; 85610; 85730; 86140; 87040; 87493; 93005; 94640; 96365; 96367; 97110; 97116; 97161; 97166; 97530; 97535; 99285; A9270; J0456; J0612; J0696; J1650; J1815; J3475; J3480; J7030; J7040; J7050

== ENCOUNTER 2024-12-05 08:38 | Outpatient (CLI) | payer MEDICARE, SELFPAY ==
--- OUTSIDE RECORDS SUMMARY | 2024-12-05 08:42 | XMS_ITS | Encounter Summary ---
Author Organization [facility] Address [address] [place] [address] Care Team Providers Care Tire Bladder Maker Name Role Phone Helen Yun MD Unavailable [phone] Rodrick Thompson MD Primary Care Provider [phone] Encounter Details Date Type Department Care Team (Late st Contact Info) Description 12/06/2022 Lab Requisition [facility] - DermPath Lab [address] [facility] [place] [address] Bety Ward DO [address] [facility] [address] [place] [address] Social History Tobacco Use Types Packs/Day Years Used Date Smoking Tobacco: Never Assessed Sex and Gender Information Value Date Recorded Sex Assigned at Not on file 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 Gender Identity Not on file Sexual Orientation Not on file documented as of this encounter Plan of Treatment Not on file documented as of this encounter Procedures Procedure Name Priority Date/Time Associated Diagnosis Comments DERMATOPATHOLOGY Routine 12/06/2022 10:1 1 AM CDT documented in this encounter Results * DERMATOPATHOLOGY (12/06/2022 10:11 AM CDT) Case Report Dermatopathology Report Case: [id number] Authorizing Provider: Bety Ward DO Collected: 12/06/2022 10:11 AM Ordering Location: [facility] DermPath Lab Received: 12/07/2022 07:45 [...] characteristic determined by the Dermatopathology Laboratory at [facility], directed by Dr. Ravi Solis. These tests need not be, and therefore are not, approved by the [place] Food and Drug Administration. The tests are used for clinical purposes. Billing Codes Specimen Charges Stain Charges 32570 1 3 4:38 PM CDT DERMATOPATHOLOGY LABORATORY Embedded Images 3 4:38 PM CDT DERMATOPATHOLOGY LABORATORY Pathology/Cytolo gy TISSUE SPECIMEN FROM SKIN / Unknown 12/06/2022 10:11 AM CDT 12/07/2022 7:45 AM CDT us Bety Ward DO LAB - PATHOLOGY/CYTOLOGY ORDERABLES Final Result DERMATOPATHOLOGY LABORATORY [facility] - Department of Dermatology [address], [address] [phone] documented in this encounter Visit Diagnoses Not on filedocumented in this encounter Care Teams Tire Bladder Maker Relationship Specialty Start Date End Date Rodrick Thompson MD [address] [facility] [address], [place] [phone] PCP - General Internal Medicine 05/10/13 Helen Yun MD Orthopedic Surgery 05/10/13 documented as of this encounter
--- OUTSIDE RECORDS SUMMARY | 2024-12-05 08:42 | XMS_ITS | Encounter Summary ---
Author Organization [facility] Address [address] [place] [address] Care Team Providers Care Supervisor Drilling And Shooting Name Role Phone Helen Yun MD Unavailable Rodrick Thompson MD Primary Care Provider [phone] Encounter Details Date Type Department Care Team (Late st Contact Info) Description 09/20/2019 Lab Requisition [facility] DermPath Lab [address] [facility] [place], [place] [phone] Bety Ward DO [address] [facility] [address] [place] [address] Social History Tobacco Use Types Packs/Day Years Used Date Smoking Tobacco: Never Assessed Sex and Gender Information Value Date Recorded Sex Assigned at Not on file 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 Gender Identity Not on file Sexual Orientation Not on file documented as of this encounter Plan of Treatment Not on file documented as of this encounter Procedures Procedure Name Priority Date/Time Associated Diagnosis Comments DERMATOPATHOLOGY Routine 09/19/2019 12:0 0 AM CDT documented in this encounter Results * DERMATOPATHOLOGY (09/19/2019 12:00 AM CDT) Case Report Dermatopathology Report Case: [id number] Authorizing Provider: Bety Ward DO Collected: 09/19/2019 12:00 AM Ordering Location: [facility] DermPath Lab Received: 09/20/2019 09:03 AM [...] specimen consists of a shave biopsy measuring [id number] mm. Jar 0. Specimen C: Received is [...] purposes. Billing Codes Specimen Charges Stain Charges 36042 53490 53137 1 1 1 0 2:51 PM CDT [...] PATHOLOGY/CYTOLOGY ORDERABLES Final Result Performing Organization Address City/State/[facility] Co de Phone Number DERMATOPATHOLOGY LABORATORY [facility] - Department of Dermatology [facility]/[phone] [place] [address] documented in this encounter Visit Diagnoses Not on filedocumented in this encounter Care Teams Supervisor Drilling And Shooting Relationship Specialty Start Date End Date Rodrick Thompson MD [address] [place] [address] PCP - General Internal Medicine 05/10/13 Helen Yun MD Orthopedic Surgery 05/10/13 documented as of this encounter
--- OUTSIDE RECORDS SUMMARY | 2024-12-05 08:42 | XMS_ITS | Encounter Summary ---
Author Organization [facility] Address [address] [facility] [address] Care Team Providers Care Caddie Name Role Phone Helen Yun MD Unavailable [phone] Rodrick Thompson MD Primary Care Provider [phone] Encounter Details Date Type Department Care Team (Late st Contact Info) Description 07/30/[address] 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 - Received: 07/31/2024 12:15 PM [...] characteristic determined by the Dermatopathology Laboratory at [facility], directed by Dr. Ravi Solis. These tests need not be, and therefore are not, approved by the [place] Food and Drug Administration. The tests are used for clinical purposes. Billing Codes Specimen Charges Stain Charges 72701 1 2:53 PM CDT DERMATOPATHOLOGY LABORATORY Embedded Images 2:53 PM CDT DERMATOPATHOLOGY LABORATORY Pathology/Cytolo gy TISSUE SPECIMEN FROM SKIN / Unknown 07/30/2024 2:25 PM CDT 07/31/2024 12:15 PM CDT us Bety Ward DO LAB - PATHOLOGY/CYTOLOGY ORDERABLES Final Result DERMATOPATHOLOGY LABORATORY [facility] - Department of Dermatology [address] [phone] documented in this encounter Visit Diagnoses Not on filedocumented in this encounter Care Teams Caddie Relationship Specialty Start Date End Date Rodrick Thompson MD [address] [phone] PCP - General Internal Medicine 05/10/13 Helen Yun MD Orthopedic Surgery 05/10/13 documented as of this encounter
--- OUTSIDE RECORDS SUMMARY | 2024-12-05 08:42 | XMS_ITS | Clinical Summary ---
Author Organization [facility] Address [address] [place] [address] Care Team Providers Care Retail Service Specialist Name Role Phone Helen Yun MD Unavailable [phone] Rodrick Thompson MD Primary Care Provider [phone] Source Comments [facility],non-owned Affiliates and Associated Physician Practices is amultiple site organization consisting of ambulatory clinics and hospital sitesin [place], [place], [place] and [place]. This disclosure is being madepursuant to the Care Everywhere program and may not contain all information available regarding this patient. 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 Gender Identity Not on file Sexual Orientation Not on file Last Filed Vital Signs Vital Sign Reading Time Taken Comments Blood Pressure - - Pulse - - Temperature - - Respiratory Rate - - Oxygen Saturation - - Inhaled Oxygen Concentration - - Weight 86.2 kg (190 lb) 05/10/2013 12:57 PM BELLOWS FILLER Height 170.2 cm (5' 7) 05/10/2013 12:57 PM BELLOWS FILLER Body Mass Index 29.76 05/10/2013 12:57 PM BELLOWS FILLER Plan of Treatment Health Maintenance Due Date [...] this topic Insurance [employer] MEDICARE Care Teams Retail Service Specialist Relationship Specialty Start Date End Date Rodrick Thompson MD [address] [facility] [address], [place] [phone] PCP - General Internal Medicine 05/10/13 Helen Yun MD Orthopedic Surgery 05/10/13
[2024-12-05 09:41] LABS: Hematocrit 42.1 % (42.0-52.0); Hemoglobin 13.1 g/dL (14.0-18.0); Immature Granulocyte Percent A 0.4 % (0-0.5); Lymphocytes Absolute Auto 1.70 K/mm3 (0.9-3.2); Mean Corpuscular HGB Conc 31.1 g/dl (32-36); Mean Corpuscular Hemoglobin 28.4 pg (26-34); Mean Corpuscular Volume 91.1 fl (80-100); Nucleated Red Blood Cells Absolute Auto 0.000 K/mm3 (0.0-0.012); Nucleated Red Blood Cells Perc 0.0 % (0.0-0.2); Platelet Count Result 288 k/mm3 (150-375); Red Blood Count 4.62 M/mm3 (4.6-6.20); White Blood Count 7.6 K/mm3 (4.5-10.0)
[2024-12-05 10:06] LABS: Alanine Aminotransferase 25 U/L (6-50); Albumin Level 4.0 g/dL (3.5-5.1); Alkaline Phosphatase 99 U/L (38-126); Anion Gap 10 mmol/L (4-12); Aspartate Amino Transferase 25 U/L (17-59); Bilirubin,Total 0.3 mg/dL (0.2-1.3); Blood Urea Nitrogen 17 mg/dL (9-20); Calcium 8.6 mg/dL (8.4-10.2); Carbon Dioxide 25 mmol/L (22-30); Chloride 104 mmol/L (98-107); Cholesterol 60 mg/dL (0-200); Estimated Glomerular Filt Rate > 60; Glucose 168 mg/dL (65-110); HDL Direct 22 mg/dL; Potassium 4.1 mmol/L (3.4-5.0); Sodium 139 mmol/L (137-145); Total Protein 7.0 g/dL (6.3-8.2); Triglycerides 99 mg/dL (<150)
== END 2024-12-05 08:39 | disposition home or self-care (01) ==
PROVIDERS: PCP Family Medicine; Visit Provider Student in an Organized Health Care Education/Training Program
DX: I25.10 Atherosclerotic heart disease of native coronary artery without angina pectoris (principal); E87.1 Hypo-osmolality and hyponatremia; E87.6 Hypokalemia; D61.818 Other pancytopenia; Z13.220 Encounter for screening for lipoid disorders
CPT/HCPCS: 36415; 80053; 80061; 85025

== ENCOUNTER 2025-01-16 10:26 | Outpatient (CLI) | payer MEDICARE, SELFPAY ==
[2025-01-16 10:56] LABS: Hematocrit 42.9 % (42.0-52.0); Hemoglobin 13.7 g/dL (14.0-18.0); Immature Granulocyte Percent A 0.2 % (0-0.5); Lymphocytes Absolute Auto 1.55 K/mm3 (0.9-3.2); Mean Corpuscular HGB Conc 31.9 g/dl (32-36); Mean Corpuscular Hemoglobin 28.4 pg (26-34); Mean Corpuscular Volume 89.0 fl (80-100); Nucleated Red Blood Cells Absolute Auto 0.000 K/mm3 (0.0-0.012); Nucleated Red Blood Cells Perc 0.0 % (0.0-0.2); Platelet Count Result 225 k/mm3 (150-375); Red Blood Count 4.82 M/mm3 (4.6-6.20); White Blood Count 5.7 K/mm3 (4.5-10.0)
[2025-01-16 11:29] LABS: Alanine Aminotransferase 26 U/L (6-50); Albumin Level 3.9 g/dL (3.5-5.1); Alkaline Phosphatase 73 U/L (38-126); Anion Gap 9 mmol/L (4-12); Aspartate Amino Transferase 48 U/L (17-59); Bilirubin,Total 1.2 mg/dL (0.2-1.3); Blood Urea Nitrogen 22 mg/dL (9-20); Calcium 7.9 mg/dL (8.4-10.2); Carbon Dioxide 21 mmol/L (22-30); Chloride 106 mmol/L (98-107); Estimated Glomerular Filt Rate > 60; Glucose 129 mg/dL (65-110); Potassium 5.0 mmol/L (3.4-5.0); Sodium 136 mmol/L (137-145); Total Protein 7.1 g/dL (6.3-8.2)
[2025-01-16 11:44] LABS: Hemoglobin A1C 7.0 % (<5.7)
== END 2025-01-16 10:27 | disposition home or self-care (01) ==
LOC: ANHLAB 10:28
PROVIDERS: PCP Family Medicine Adolescent Medicine
DX: E78.2 Mixed hyperlipidemia (principal); E11.9 Type 2 diabetes mellitus without complications; R53.83 Other fatigue
CPT/HCPCS: 36415; 80053; 83036; 85025